=== PATIENT | female | born 1995 | race Caucasian/White ===

== ENCOUNTER 2020-12-23 15:20 | Emergency (ER) | payer BC, OTHER, SELFPAY ==
[2020-12-23 16:31] VITALS: BP 121/84; PULSE 86; RESP 18; TEMP 37.1; O2SAT 97; BMI 39.7
--- NOTE | 2020-12-23 17:12 | ED.BACK ---
HPI - Back Pain/Injury General Chief Complaint: Back Pain/Injury Stated Complaint: Back pain Time Seen by Provider: 12/23/20 16:32 Source: patient Mode of arrival: ambulatory Limitations: no limitations History of Present Illness HPI Narrative: 25 y/o female with history of sciatica who presents to the ER with worsening low back pain after she injured herself at the [employer] park yesterday afternoon. Patient reports stepping off of the wooden platform onto a trampoling when she had sudden pain in her lower back that shot up her spine and down her legs. It brought her to the ground and she could not get up immediately. She reports the pain is in her lower back, left greater than right. She has been taking tylenol with no improvement. She cannot find a comfortable position. Worse with walking and movement. No bladder or bowel incontinence. Pain shoots down the back of her legs and into her hips. No leg weakness just pain. MD elicited complaint: back pain and back injury Pertinent past history: prior back pain Onset (ago): day(s) (1) Timing: constant Severity: severe Pain scale (0-10): 7 Similar Symptoms Previously: Yes Quality: sharp, stabbing and aching Location: right lower back and left lower back Radiation: groin, left upper leg and right upper leg Exacerbating factors: movement and walking Relieving factors: immobilization and sitting upright Context: fall Associated symptoms: denies other symptoms Treatments prior to arrival: acetaminophen Work related injury: No Related Data Previous Rx's Medication Instructions Recorded cyclobenzaprine 10 mg tablet 10 mg PO TID PRN #10 tab 12/23/20 hydrocodone 5 mg-acetaminophen 325 1 tab PO Q8H PRN #5 tab 12/23/20 mg tablet ibuprofen 600 mg tablet 600 mg PO Q8H PRN #20 tab 12/23/20 lidocaine 5 % topical patch 1 patch TOPICAL DAILY #15 ea 12/23/20 (Lidoderm) Allergies Allergy/AdvReac Type Severity Reaction Status Date / Time iron Allergy Unknown Verified 12/23/20 16:30 Review of Systems Review of Systems: Constitutional: No Fever, No Chills ENT/Mouth: No sore throat, No Rhinorrhea, No Swallowing Difficulty Cardiovascular: No Chest Pain, No SOB Gastrointestinal: No Nausea, No Vomiting, No abdominal Pain Genitourinary: No urinary incontinence, No Hematuria Musculoskeletal: + joint pain, + Myalgias Skin: No Skin Lesions, No rash Neuro: No Weakness, No Numbness Heme/Lymph: No Bruising PMFSH Social History Social History Advance Directives: No Advance Directives Information Provided: Yes Patient : No Physical Exam Vital Signs: Vital Signs: Last Vital Signs Temp 98.8 F 12/23/20 16:31 Pulse 86 12/23/20 16:31 Resp 18 12/23/20 16:31 BP 121/84 12/23/20 16:31 Pulse Ox 97 12/23/20 16:31 Body Mass Index 39.7 Appearance: Alert. Oriented X3. Appears uncomfortable. Eyes: normal inspection ENT: Pharynx normal. Neck: Normal inspection. Neck supple. CVS: Normal heart rate and rhythm. Pulses normal. Respiratory: No respiratory distress. Breath sounds normal. Abdomen: Soft and nontender. +BS x4 Back: normal inspection. tenderness of the low lumar area bilaterally with soft tissue spasm, +SI joint tenderness on the left Skin: Skin warm and dry. Normal skin color. Normal skin turgor. No rashes. Extremities: No lower extremity edema. Neuro: Oriented X 3. No motor deficit. No sensory deficit. Ambulates with slow but steady gait. Course Course Course Narrative: 25 y/o female presenting with low back pain radiating into her legs after stepping wrong at a trampoline park yesterday. Exam and clinical presentation are consistent acute exacerbation of sciatica. Doubt spinal cord compression/cauda equina syndrome. No red flag symptoms of LBP. Will get XR to r/o compression fx given fall. Reevaluation(s) Reevaluation #1: Patient declining XR. She feels somewhat improved after medications. She would like to be discharged home with NSAID, muscle relaxer, lidoderm and narcotic for severe pain PRN. She will f/u with her PCP this week - she is awaiting PT to be arranged for her pre-existing low back pain. Stable for d/c with supportive care and pain control. MDM - Back Pain/Injury Lab Data Labs: Lab Results 12/23/20 12/23/20 Range/Units 17:39 17:39 Urine Color STRAW Urine Appearance CLEAR Urine pH 7.0 (5.0-8.0) Ur Specific Hext 1.010 (1.005-1.025) Urine Protein NEG (NEG-TRACE) MG/DL Urine Glucose (UA) NEG (NEG) MG/DL Urine Ketones NEG (NEG) MG/DL Urine Blood NEG (NEG) Urine Nitrite NEG (NEG) Ur Leukocyte Esterase 1+ H (NEG) Urine RBC 0 (0) /HPF Urine WBC 0-2 (0-4) /HPF Ur Squamous Epith Cells 1+ /LPF Urine Bacteria NONE /LPF Urine Test NEGATIVE (NEGATIVE) Critical Care Time Critical Care Time Critical Care Time: No Discharge Plan Discharge Clinical Impression: Sciatica Qualifiers: Laterality: bilateral Qualified Code(s): M54.31 - Sciatica, right side Strain of lumbar region Qualifiers: Encounter type: initial encounter Qualified Code(s): S39.012A - Strain of muscle, fascia and tendon of lower back, initial encounter Patient Disposition: Home, Self-Care Instructions: Sciatica (ED), Low Back Strain (ED), Lower Back Exercises (ED) Additional Instructions: No bending, lifting or twisting Use ice several times per day for 20 minutes at a time for the next 48 hours and then change to heat. Take medications as prescribed to help with pain and discomfort. Follow up with your Primary Care Doctor this week. If your pain worsens, if you develop new numbness, tingling, weakness, loss of function or incontinence call 911 or come back to the ER right away for evaluation. Prescriptions: New cyclobenzaprine 10 mg tablet 10 mg PO TID PRN (Reason: muscle spasm) Qty: 10 RF: 0 lidocaine [Lidoderm] 5 % adhesive patch,medicated 1 patch topical DAILY Qty: 15 RF: 0 ibuprofen 600 mg tablet 600 mg PO Q8H PRN (Reason: pain) Qty: 20 RF: 0 hydrocodone-acetaminophen 5-325 mg tablet 1 tab PO Q8H PRN (Reason: severe pain (scale score 7-10)) Qty: 5 RF: 0 Stand Alone Forms: Work/School Release
[2020-12-23] MEDS: Cyclobenzaprine HCl 5 MG TABLET PO (17:32)
[2020-12-23] MEDS: Ketorolac Tromethamine 15 MG/ML VIAL 30 MG IM (17:32)
[2020-12-23] MEDS: HYDROcodone Bit/Acetam 5/325 TABLET 1 TAB PO (17:32)
[2020-12-23 18:18] LABS: Appearance Urine CLEAR; Color Urine STRAW; Glucose Urine UA NEG (NEG); Leukocyte Esterase Urine 1+ (NEG); Nitrite Urine NEG (NEG); UACC Culture Trigger YES; Urine Blood NEG (NEG); Urine Ketones NEG (NEG); Urine Protein NEG (NEG-TRACE)
[2020-12-23 18:20] LABS: UPreg QC Valid YES; Urine Pregnancy NEGATIVE (NEGATIVE)
[2020-12-23 18:29] LABS: RBC Urine 0 /HPF (0); Squamous Epithelial Cell Urine 1+ /LPF; WBC Urine 0-2 /HPF (0-4)
== END 2020-12-23 19:20 | disposition home or self-care (01) ==
PROVIDERS: Physician Assistant; Emergency Provider Emergency Medicine
DX: S39.012A Strain of muscle, fascia and tendon of lower back, initial encounter (principal); M54.31 Sciatica, right side; M79.605 Pain in left leg; M79.604 Pain in right leg; Y33.XXXA Other specified events, undetermined intent, initial encounter; Y93.9 Activity, unspecified; Y93.44 Activity, trampolining; Y92.9 Unspecified place or not applicable; Z79.899 Other long term (current) drug therapy
CPT/HCPCS: 81001; 81025; 87086; 96372; 99284; J1885

== ENCOUNTER → 2022-01-03 08:02 | Outpatient (REF) | payer BC, SELFPAY ==
--- NOTE | 2022-01-03 08:08 | ECG_ITS ---
Test Reason : obesity Blood Pressure : / mmHG Vent. Rate : 074 BPM Atrial Rate : 074 BPM P-R Int : 130 ms QRS Dur : 084 ms QT Int : 392 ms P-R-T Axes : 024 019 001 degrees QTc Int : 435 ms Normal sinus rhythm Normal ECG No previous ECGs available Referred By: Jace Godwin Electronically Signed By:MITCH GOINS
[2022-01-03 08:20] LABS: MANUAL DIFF FLAG NO
[2022-01-03 08:34] LABS: Basophils Absolute Auto 0.1 X10*3/uL (0.0-0.2); Basophils Percent Auto 0.8 % (0-2); Eosinophils Absolute Auto 0.1 X10*3/uL (0.0-0.4); Eosinophils Percent Auto 1.2 % (0-4); Hematocrit 37.4 % (37.0-47.0); Hemoglobin 11.8 g/dl (12.0-16.0); Imm Gran Abs Auto 0.03 X10*3/uL (0.00-0.03); Imm Gran Pct Auto 0.4 % (0.0-0.4); Lymphocytes Absolute Auto 1.9 X10*3/uL (1.2-4.9); Lymphocytes Percent Auto 25.7 % (20-40); Mean Corpuscular HGB Conc 31.6 g/dl (31.0-35.0); Mean Corpuscular Hemoglobin 25.2 pg (27.0-33.0); Mean Corpuscular Volume 79.7 fL (80.0-98.0); Mean Platelet Volume 10.7 fL (9.4-12.3); Monocytes Absolute Auto 0.6 X10*3/uL (0.1-1.2); Monocytes Percent Auto 7.6 % (2-11); Neutrophils Absolute Auto 4.8 x10*3/uL (2.0-8.3); Neutrophils Percent Auto 64.3 % (45-73); Platelet Count 345 X10*3/uL (160-400); Red Blood Count 4.69 X10*6/uL (4.20-5.50); Red Cell Distribution Width 14.9 % (11.0-16.0); White Blood Count 7.5 X10*3/uL (4.8-10.8)
[2022-01-03 08:44] LABS: Estimated Average Glucose 103 mg/dL; Hemoglobin A1c % 5.2 %
[2022-01-03 08:57] LABS: Alanine Aminotransferase 20 U/L (0-31); Albumin Level 4.3 g/dL (3.5-5.0); Alkaline Phosphatase 102 U/L (39-117); Anion Gap 15 (12-20); Aspartate Amino Transferase 18 U/L (5-31); Bilirubin Total 0.4 mg/dL (0.0-1.0); Blood Urea Nitrogen 10 mg/dL (9-16); C Reactive Protein 0.45 mg/dL (< or = 0.50); Calcium 9.3 mg/dL (8.4-10.2); Carbon Dioxide 23 mmol/L (22-29); Chloride 105 mmol/L (96-108); Cholesterol 220 mg/dL; Estimated Glomerular Filt Rate > 60; Glucose Random 100 mg/dL (60-115); HDL Cholesterol 46 mg/dL; Iron 33 mcg/dL (30-160); LDL Cholesterol Calculated 158 mg/dl; Percent Iron Saturation 7 % (15-50); Potassium 4.4 mmol/L (3.3-5.1); Sodium 139 mmol/L (135-145); Total Iron Binding Capacity 486 mcg/dL (228-428); Total Protein 7.3 g/dL (6.5-8.0); Triglycerides 83 mg/dL; Unsaturated Iron Binding 453 ug/dL
[2022-01-03 09:20] LABS: Ferritin 5 ng/mL (10-122); Insulin 9 uU/mL (2-29); TSH reflex Free T4 3.36 uIU/mL (0.32-4.0); Vitamin D 25-OH Total 30.5 ng/mL (>30)
[2022-01-03 09:31] LABS: Folate 18.7 ng/mL (> or = 4.0); Vitamin B12 536 pg/mL (200-900)
[2022-01-05 15:00] LABS: H Pylori Breath Test Negative (Negative)
[2022-01-06 17:26] LABS: Calcium (PTHI) 9.6 mg/dL (8.6-10.2); PTHI 46 pg/mL (16-77)
[2022-01-07 05:52] LABS: Zinc 82 mcg/dL (60-130)
[2022-01-07 06:02] LABS: Vitamin B1 12 nmol/L (8-30)
[2022-01-08 10:07] LABS: Vitamin A 38 mcg/dL (38-98)
== END ==
LOC: HO.CARD 08:02
PROVIDERS: Visit Provider Surgery
DX: E66.01 Morbid (severe) obesity due to excess calories (principal); E78.5 Hyperlipidemia, unspecified
CPT/HCPCS: 36415; 80053; 80061; 82306; 82607; 82728; 82746; 83013; 83036; 83525; 83540; 83970; 84425; 84443; 84590; 84630; 85025; 86140; 93005

== ENCOUNTER → 2022-01-08 15:09 | Outpatient (BNVA) | payer BC, SELFPAY | PROVIDERS: Visit Provider Counselor Mental Health | DX: F33.1 Major depressive disorder, recurrent, moderate (principal); E66.01 Morbid (severe) obesity due to excess calories | CPT/HCPCS: 90791 ==

== ENCOUNTER → 2022-01-17 15:42 | Outpatient (BNVA) | payer BC, SELFPAY | PROVIDERS: Visit Provider Dietitian, Registered | DX: E66.01 Morbid (severe) obesity due to excess calories (principal); Z68.41 Body mass index [BMI] 40.0-44.9, adult | CPT/HCPCS: 97802 ==

== ENCOUNTER → 2022-02-10 16:16 | Outpatient (BNVA) | payer BC, SELFPAY | PROVIDERS: Visit Provider Dietitian, Registered | DX: E66.01 Morbid (severe) obesity due to excess calories (principal); E78.5 Hyperlipidemia, unspecified | CPT/HCPCS: 97803 ==

== ENCOUNTER 2022-02-20 07:49 | Outpatient (REF) | payer BC, SELFPAY ==
--- NOTE | ~2022-02-20 | FL_ITS ---
EXAMINATION: XR FLUOROSCOPY UPPER GI WITH AIR CLINICAL INFORMATION: [id number] obesity due to excess calories. COMPARISON: None TECHNIQUE: Routine upper GI air contrast was performed in upright and lying position. FINDINGS: Following oral administration of thick barium and effervescent granules there is normal propagation of bolus from the oral cavity through the pharynx, esophagus into stomach without any evidence of obstruction, narrowing or stricture. On placing patient supine and prone lying, the course, caliber and peristalsis of the stomach and duodenal bulb is normal. The mucosal pattern of the stomach and the duodenal bulb and the sweep is normal. There is mild gastroesophageal reflux without hiatal hernia. FLUOROSCOPY TIME: 1.3 minutes DOSE AREA PRODUCT: 20.748 uGy-m2 (microgray-meter squared) FL/FL upper GI w air IMPRESSION: Mild gastroesophageal reflux without hiatal hernia.
--- NOTE | ~2022-02-20 | US_ITS ---
EXAMINATION: US COMPLETE ABDOMEN WITH LIVER ELASTOGRAPHY CLINICAL INFORMATION: Obesity COMPARISON: None. TECHNIQUE: Real-time imaging of the abdominal viscera. Noninvasive ultrasound liver fibrosis assessment is performed using Gretel ElastPQ point quantification shear wave elastography (2D-SWE) with a C5-2 MHz transducer. Multiple elastography samples are obtained. FINDINGS: PANCREAS: Normal. ABDOMINAL AORTA: The proximal, middle, and distal aortic segments are normal in caliber. INFERIOR VENA CAVA: Visualized portions are normal. LIVER: Normal. The liver demonstrates normal size, contour and echogenicity. No focal lesion or intrahepatic biliary duct dilatation. The right lobe measures 16 cm in length. The left lobe measures 11 cm in length. Portal flow is normal/hepatopedal Shear wave liver elastography median stiffness is 1.4 m/s (reference: normal median stiffness is 1.3 m/s or less). IQR/median stiffness to assess sampling precision is 0.15 (reference: good quality data set is IQR/median stiffness of 0.15 or less). GALLBLADDER: Normal. The gallbladder is physiologically distended without evidence of stones, sludge, polyps, wall thickening or pericholecystic fluid. COMMON BILE DUCT: Normal in caliber measuring 0.2 cm in diameter. RIGHT KIDNEY: Normal. No hydronephrosis. No renal calculi or focal parenchymal lesions. The kidney measures 13 cm in maximum dimension. LEFT KIDNEY: Normal. No hydronephrosis. No renal calculi or focal parenchymal lesions. The kidney measures 12 cm in maximum dimension. SPLEEN: Normal. The spleen measures 12 cm in maximum dimension. FREE FLUID: None. US/US abdomen comp w elastography IMPRESSION: 1. Impression: Unremarkable exam. 2. Liver elastography: Adequate liver sampling. In the absence of other known clinical signs, rules out compensated advanced chronic liver disease. REFERENCE: Society of Radiologists in Ultrasound Liver Stiffness Thresholds (2020): LIVER STIFFNESS THRESHOLDS: *Liver Stiffness equal or less than 1.3 m/s: High probability of being normal. *Liver Stiffness less than 1.7 m/s: In the absence of other known clinical signs, rules out compensated advanced chronic liver disease. *Liver Stiffness 1.7-2.1 m/s: Suggestive of compensated advanced chronic liver disease but need further test for confirmation. *Liver Stiffness over 2.1 m/s: Rules in compensated advanced chronic liver disease. *Liver Stiffness over 2.4 m/s: Suggestive of clinically significant portal hypertension. QUALITY OF DATA SET: *IQR/Median value equal or less than 0.15 implies a quality data set. *IQR/Median value over 0.15 implies a poor quality data set. SIGNIFICANT CHANGE FROM PRIOR EXAM: Significant change if liver stiffness measurement is 10% or greater from prior exam. OTHER CONSIDERATIONS: The stage of liver fibrosis may be overestimated in the setting of acute hepatitis, liver inflammation, elevated liver function tests, hepatic vascular congestion, obstructive cholestasis, non-fasting state, and infiltrative diseases such as amyloidosis and lymphoma. In some patients with NAFLD, the liver stiffness thresholds for compensated advanced chronic liver disease may be lower. In causes other than viral hepatitis and NAFLD, liver stiffness thresholds are not well established.
== END 2022-02-20 07:50 | disposition home or self-care (01) ==
LOC: HO.US 07:49
PROVIDERS: Visit Provider Surgery
DX: E66.01 Morbid (severe) obesity due to excess calories (principal); E78.5 Hyperlipidemia, unspecified
CPT/HCPCS: 74246; 76705; 76981

== ENCOUNTER → 2022-04-21 08:21 | Outpatient (BNVA) | payer BC, SELFPAY | PROVIDERS: Visit Provider Surgery | DX: Z13.89 Encounter for screening for other disorder (principal) ==

== ENCOUNTER → 2022-04-30 08:29 | Outpatient (BNVA) | payer BC, SELFPAY | PROVIDERS: Visit Provider Surgery | DX: Z13.89 Encounter for screening for other disorder (principal) ==

== ENCOUNTER 2022-05-06 06:01 | Inpatient (IN) | payer BC, SELFPAY ==
[2022-04-23 10:28] VITALS: BMI 37.8
[2022-04-30 08:26] LABS: MANUAL DIFF FLAG NO
[2022-04-30 08:57] LABS: Basophils Absolute Auto 0.1 X10*3/uL (0.0-0.2); Basophils Percent Auto 1.1 % (0-2); Eosinophils Absolute Auto 0.1 X10*3/uL (0.0-0.4); Eosinophils Percent Auto 1.1 % (0-4); Hematocrit 41.1 % (37.0-47.0); Hemoglobin 13.1 g/dl (12.0-16.0); Imm Gran Abs Auto 0.02 X10*3/uL (0.00-0.03); Imm Gran Pct Auto 0.3 % (0.0-0.4); Lymphocytes Absolute Auto 2.1 X10*3/uL (1.2-4.9); Lymphocytes Percent Auto 27.4 % (20-40); Mean Corpuscular HGB Conc 31.9 g/dl (31.0-35.0); Mean Corpuscular Hemoglobin 25.2 pg (27.0-33.0); Mean Platelet Volume 11.3 fL (9.4-12.3); Monocytes Absolute Auto 0.5 X10*3/uL (0.1-1.2); Monocytes Percent Auto 6.7 % (2-11); Neutrophils Absolute Auto 4.8 x10*3/uL (2.0-8.3); Neutrophils Percent Auto 63.4 % (45-73); Platelet Count 319 X10*3/uL (160-400); Red Cell Distribution Width 16.8 % (11.0-16.0); White Blood Count 7.6 X10*3/uL (4.8-10.8)
[2022-04-30 09:01] LABS: Prothrombin Time 11.5 SEC (10.0-13.1)
[2022-04-30 09:03] LABS: Partial Thromboplastin Time 31.6 SEC (26.0-36.4)
[2022-04-30 09:05] LABS: Estimated Average Glucose 105 mg/dL; Hemoglobin A1c % 5.3 %
[2022-04-30 09:30] LABS: Alanine Aminotransferase 22 U/L (0-31); Albumin Level 4.6 g/dL (3.5-5.0); Alkaline Phosphatase 92 U/L (39-117); Anion Gap 11 (12-20); Aspartate Amino Transferase 21 U/L (5-31); Bilirubin Total 0.5 mg/dL (0.0-1.0); Blood Urea Nitrogen 12 mg/dL (9-16); C Reactive Protein 0.34 mg/dL (< or = 0.50); Calcium 9.7 mg/dL (8.4-10.2); Carbon Dioxide 26 mmol/L (22-29); Chloride 104 mmol/L (96-108); Cholesterol 228 mg/dL; Creatinine Clr Calc Pharmacy 131.2; Estimated Glomerular Filt Rate > 60; Glucose Random 82 mg/dL (60-115); HDL Cholesterol 49 mg/dL; LDL Cholesterol Calculated 160 mg/dl; Potassium 4.3 mmol/L (3.3-5.1); Sodium 137 mmol/L (135-145); Total Protein 7.6 g/dL (6.5-8.0); Triglycerides 99 mg/dL
[2022-04-30 09:50] LABS: Insulin 4 uU/mL (2-29)
--- NOTE | 2022-05-02 18:37 | P.HPSUR_ITS ---
Pre-Procedural Eval Section A Date of Service: 05/02/22 The patient is an INPATIENT: Yes The History & Physical has been completed within 30 days and I have reviewed it.: Yes Section B Chief Complaint: Morbid (severe) obesity due to excess calories Relevant Family History (Specify if Yes): No Relevant Social History: None Present Medications: None Medical History: No relevant PMH History of Previous Operations: No relevant previous surgery Allergies: Allergies Allergy/AdvReac Type Severity Reaction Status Date / Time iron Allergy Intermediate Hives Verified 04/23/22 10:28 Review of Systems Sugical H&P ROS: Negative: Constitution, Cardiovascular, Respiratory, Neurological, Psychiatric, Hem-Onc, Allergic/Immunologic, Gastrointestinal, Genitourinary, Musculoskeletal, Integumentary, Endocrine and Eyes/Ears /Nose/Throat Exam Surgical H&P Exam: Normal: HEENT, Normal: Heart, Normal: Lungs, Normal: Extremities, Normal: Abdomen, Normal: Skin and Normal: Neurological Plan Diagnosis/Plan: Unchanged I have reviewed the history and physical and performed a pertinent physical examination on my patient. No changes have occurred unless specified. Time Spent With Patient Time: Total time managing care of this patient today ____ minutes.
--- NOTE | 2022-05-05 10:13 | HO.ANESPROP2 ---
Documented by User: Maryellen Swann NP 05/05/22 10:14 HPI - Anesthesia Eval Consult details Narrative: 26yo F for Gastrectomy Sleeve,possible diaphragmatic hernia,possible ventral hernia,possible open PMFSH Active Problems Active Problems: All Active Problems (Updated 04/23/22 @ 10:25 by Deepa Swartz RN) History of tonsillectomy (Acute) Iron deficiency (Acute) Major depressive disorder, recurrent, moderate (Acute) Obesity (Acute) BMI 38.0-38.9,adult (Acute) Morbid obesity (Acute) Depression (Acute) Hyperlipidemia (Acute) Back pain (Acute) Past Medical History Medical History Back pain Depression GERD (gastroesophageal reflux disease) History of anxiety Hyperlipidemia Low back pain Morbid obesity Personal history of asthma Surgical History Surgical History Hx of tonsillectomy Social History Social History Household Members: Children Housing: House Are you a primary ocular care technologist to a significant other at home: Yes (children ages 4,7,11) Do you presently have visiting nurse or other home services: No Alcohol intake: never Patient Tobacco Use Status: Never used Tobacco Use of substances other than those prescribed or required for medical reasons: No Have you been hit, kicked, punched, or otherwise hurt by someone within the past year? If so, by whom?: No Are you DNR?: No Advance Directives: No Advance Directives Information Provided: Yes Advance Directives on File: No Recently lost weight without trying: No Nutrition Risks: No Nutritional Risk Patient : No FDLMP: 04/11/2022 : No Poor oral hygiene: No Meds Allergies Allergy/AdvReac Type Severity Reaction Status Date / Time iron Allergy Intermediate Hives Verified 05/06/22 06:09 Exam Exam Date and Time: May 05, 2022 1013 Height,Weight and Vital Signs: Height 5 ft Weight 87.997 kg Pertinent Lab Results Pertinent Lab Results: Laboratory Tests 04/30/22 04/30/22 04/30/22 08:20 08:24 08:24 WBC 7.6 RBC 5.20 Hgb 13.1 Hct 41.1 MCV 79.0 L MCH 25.2 L MCHC 31.9 RDW 16.8 H Plt Count 319 MPV 11.3 Immature Gran % (Auto) 0.3 Neut % (Auto) 63.4 Lymph % (Auto) 27.4 [place] % (Auto) 6.7 Eos % (Auto) 1.1 Baso % (Auto) 1.1 Lymph # (Auto) 2.1 [place] # (Auto) 0.5 Eos # (Auto) 0.1 Baso # (Auto) 0.1 Abs Immat Gran (auto) 0.02 Absolute Neuts (auto) 4.8 Absolute Nucleated RBC 0.000 Nucleated RBC % (auto) 0.0 PT 11.5 INR 1.0 APTT 31.6 Sodium Potassium Chloride Carbon Dioxide Anion Gap BUN Creatinine Estim Creat Clear Calc Estimated GFR Random Glucose Estimat Average Glucose Hemoglobin A1c % Insulin Level Calcium Total Bilirubin AST ALT Alkaline Phosphatase C-Reactive Protein Total Protein Albumin Triglycerides Cholesterol LDL Cholesterol, Calc HDL Cholesterol TSH Blood Type A Positive Antibody Screen NEGATIVE 04/30/22 04/30/22 08:24 08:24 WBC RBC Hgb Hct MCV MCH MCHC RDW Plt Count MPV Immature Gran % (Auto) Neut % (Auto) Lymph % (Auto) [place] % (Auto) Eos % (Auto) Baso % (Auto) Lymph # (Auto) [place] # (Auto) Eos # (Auto) Baso # (Auto) Abs Immat Gran (auto) Absolute Neuts (auto) Absolute Nucleated RBC Nucleated RBC % (auto) PT INR APTT Sodium 137 Potassium 4.3 Chloride 104 Carbon Dioxide 26 Anion Gap 11 L BUN 12 Creatinine 0.63 Estim Creat Clear Calc 131.2 Estimated GFR > 60 Random Glucose 82 Estimat Average Glucose 105 Hemoglobin A1c % 5.3 Insulin Level 4 Calcium 9.7 Total Bilirubin 0.5 AST 21 ALT 22 Alkaline Phosphatase 92 C-Reactive Protein 0.34 Total Protein 7.6 Albumin 4.6 Triglycerides 99 Cholesterol 228 LDL Cholesterol, Calc 160 HDL Cholesterol 49 TSH 1.90 Blood Type Antibody Screen Narrative Narrative: EKG 12/2021 Vent. Rate : 074 BPM ? ? Atrial Rate : 074 BPM ?? P-R Int : 130 ms? QRS Dur : 084 ms ? ? QT Int : 392 ms ? ? ? P-R-T Axes : 024 019 001 degrees ?? QTc Int : 435 ms ? Normal sinus rhythm Normal ECG No previous ECGs available Assessment and Plan Assessment Anesthesia Assessment: Chart Reviewed Documented by User: Bety Bowie MD 05/06/22 07:34 [facility] Past Medical History Medical History Back pain Depression GERD (gastroesophageal reflux disease) History of anxiety Hyperlipidemia Low back pain Morbid obesity Personal history of asthma Family History Family history of problems with anesthesia: No Surgical History Surgical History Hx of tonsillectomy History of Problems with Anesthesia: No Social History Social History Household Members: Children Housing: House Are you a primary ocular care technologist to a significant other at home: Yes (children ages 4,7,11) Do you presently have visiting nurse or other home services: No Alcohol intake: never Patient Tobacco Use Status: Never used Tobacco Use of substances other than those prescribed or required for medical reasons: No Have you been hit, kicked, punched, or otherwise hurt by someone within the past year? If so, by whom?: No Are you DNR?: No Advance Directives: No Advance Directives Information Provided: Yes Advance Directives on File: No Recently lost weight without trying: No Nutrition Risks: No Nutritional Risk Patient : No FDLMP: 04/11/2022 : No Poor oral hygiene: No Meds Allergies Allergy/AdvReac Type Severity Reaction Status Date / Time iron Allergy Intermediate Hives Verified 05/06/22 06:09 Exam Height,Weight and Vital Signs: Height 5 ft Weight 87.997 kg Vital Signs Temp Pulse Resp BP Pulse Ox O2 Del Method 05/06/22 06:21 98.0 F 84 15 119/69 99 Room Air Pertinent Lab Results Pertinent Lab Results: Laboratory Tests 04/30/22 04/30/22 04/30/22 08:20 08:24 08:24 WBC 7.6 RBC 5.20 Hgb 13.1 Hct 41.1 MCV 79.0 L MCH 25.2 L MCHC 31.9 RDW 16.8 H Plt Count 319 MPV 11.3 Immature Gran % (Auto) 0.3 Neut % (Auto) 63.4 Lymph % (Auto) 27.4 [place] % (Auto) 6.7 Eos % (Auto) 1.1 Baso % (Auto) 1.1 Lymph # (Auto) 2.1 [place] # (Auto) 0.5 Eos # (Auto) 0.1 Baso # (Auto) 0.1 Abs Immat Gran (auto) 0.02 Absolute Neuts (auto) 4.8 Absolute Nucleated RBC 0.000 Nucleated RBC % (auto) 0.0 PT 11.5 INR 1.0 APTT 31.6 Sodium Potassium Chloride Carbon Dioxide Anion Gap BUN Creatinine Estim Creat Clear Calc Estimated GFR Random Glucose Estimat Average Glucose Hemoglobin A1c % Insulin Level Calcium Total Bilirubin AST ALT Alkaline Phosphatase C-Reactive Protein Total Protein Albumin Triglycerides Cholesterol LDL Cholesterol, Calc HDL Cholesterol TSH Blood Type A Positive Antibody Screen NEGATIVE 04/30/22 04/30/22 08:24 08:24 WBC RBC Hgb Hct MCV MCH MCHC RDW Plt Count MPV Immature Gran % (Auto) Neut % (Auto) Lymph % (Auto) [place] % (Auto) Eos % (Auto) Baso % (Auto) Lymph # (Auto) [place] # (Auto) Eos # (Auto) Baso # (Auto) Abs Immat Gran (auto) Absolute Neuts (auto) Absolute Nucleated RBC Nucleated RBC % (auto) PT INR APTT Sodium 137 Potassium 4.3 Chloride 104 Carbon Dioxide 26 Anion Gap 11 L BUN 12 Creatinine 0.63 Estim Creat Clear Calc 131.2 Estimated GFR > 60 Random Glucose 82 Estimat Average Glucose 105 Hemoglobin A1c % 5.3 Insulin Level 4 Calcium 9.7 Total Bilirubin 0.5 AST 21 ALT 22 Alkaline Phosphatase 92 C-Reactive Protein 0.34 Total Protein 7.6 Albumin 4.6 Triglycerides 99 Cholesterol 228 LDL Cholesterol, Calc 160 HDL Cholesterol 49 TSH 1.90 Blood Type Antibody Screen Laboratory Results - last 24 hr 05/05/22 05/06/22 12:50 06:10 Urine Test NEGATIVE COVID-19 (RIYA) Negative COVID-19 Clin Com See Note Airway Mallampati Class: II TM Dist: >3cm Neck ROM: Full Loose/Missing/Broken Teeth: No (Denies broken, loose, missing teeth) Heart: RRR Lungs: CTAB Assessment and Plan Assessment Anesthesia Assessment: Anesthesia Plan Discussed Final Anesthetic Review Family History of Problems with Anesthesia: No History of Problems with Anesthesia: No NPO: Yes ASA Class: III Final Preanesthetic Review: No Changes in Pt Med Stat, Meds/Allgs Chart Reviewed, Consent Obtained/Reviewed and Anes Risks/Benef Reviewed Patient Risk: Intermediate Procedure Risk: Intermediate Assessment/Block/Sedation in SS: Assess/Block/Sedation-SS Anesthetic Plan Anesthetic Plan: GA Disposition: Standard PACU and Inp. Admit - Standard Bed
[2022-05-05 13:18] LABS: COVID-19 Test Negative (Negative); IDNOW Serial# BCCEAD1C
[2022-05-06] VITALS (12 sets, daily range): BP systolic 105–152; BP diastolic 64–89; PULSE 77–98; RESP 15–20; TEMP 36.3–37; O2SAT 97–100
--- NOTE | 2022-05-06 | ECG_ITS ---
Test Reason : post op Blood Pressure : / mmHG Vent. Rate : 098 BPM Atrial Rate : 098 BPM P-R Int : 136 ms QRS Dur : 090 ms QT Int : 366 ms P-R-T Axes : 043 009 162 degrees QTc Int : 467 ms Artifact in tracing Normal sinus rhythm Nonspecific ST and T wave abnormality Abnormal ECG When compared with ECG of 03-JAN-2022 08:04, T wave inversion now evident in Anterolateral leads Referred By: Bety Bowie Electronically Signed By:YAHIR LUNA
[2022-05-06] MEDS: Lactated Ringers 1,000 ML 999 ML IV (06:30)
[2022-05-06 06:34] LABS: UPreg QC Valid YES; Urine Pregnancy NEGATIVE (NEGATIVE)
--- NOTE | 2022-05-06 07:56 | P.BOP_ITS ---
Brief Operative Note Date of Service: 05/06/22 Pre-op diagnosis: Severe obesity with comorbidities (see below) Post-op diagnosis: same Procedure: INITIAL PATIENT BMI ON PRESENTATION AT OUR OFFICE: 42.5 kg/m2 LAST BMI BEFORE SURGERY: 36.8 kg/m2 COMORBIDITIES: Depression, hyperlipidemia, GERD, back pain ?The patient presented to the Weight Management Program with significant obesity that was negatively impacting the patient's comorbidities as listed above.? The program is a phased program with a special focus on preoperative medical weight management to promote substantial weight loss and prepare the patients for the second phase of the program: bariatric surgery. The patient participated in an intensive weekly lifestyle ?intervention and exercise program during which the patient ?has lost between the initial office visit and the last preoperative visit 28.8lbs, or 13.25% of initial actual body weight. It was deemed appropriate for the patient to now have bariatric surgery. In light of the current Covid-19 pandemic and the well documented strong association of obesity and increased risk of worse outcomes if infected with Covid-19 (REFERENCES: https://pubmed.ncbi.nlm.nih.gov/08138590/ ,? http s://pubmed.ncbi.nlm.nih.gov/23233162/ ), any delay in undergoing bariatric surgery may lead to the patient's worsening health condition and increased?risk of more severe Covid-19 disease if infected. In addition a recent?study from [facility] published in [facility] on 04/08/2021 ([email or web address]) found that, among patients with obesity, substantial weight loss achieved with surgery was associated with improved outcomes of COVID-19 infection. The findings suggest that obesity can be a modifiable risk factor for the severity of COVID-19 infection. In addition, the patient met the BMI-criteria for bariatric surgery based on the BMI on initial presentation. The patient should not be penalized for achieving such weight loss because ?it is not sustainable long-term without surgical intervention and it was achieved in preparation for bariatric surgery ?under my direction and based on my published research ([email or web address]).[email or web address] and? https://www.soard.org/article/F6114-3575(63)54590-X/pdf ) ?that a 10% preoperative weight loss improves long-term weight loss after surgery and reduces perioperative complications.? Insurance carriers such as [facility] have endorsed my recommendations ?and have included in their policies criteria to include a 10% preoperative weight loss requirement. PROCEDURE: Esophago-gastroscopy, laparoscopic sleeve gastrectomy and laparoscopic gastropexy INDICATIONS: This is a 26 year-old female who was electively scheduled for laparoscopic, possibly open sleeve gastrectomy. The risks and complications of the procedure were discussed with the patient in advance, particularly the possibility of ; pulmonary embolism; staple line leak; bleeding; GERD; cardiac, pulmonary, or renal complications; as well as long-term problems such as insufficient weight loss, vitamin deficiency, strictures, or ulcers. The p atient understood all the risks, and was in agreement to proceed with surgery. DESCRIPTION OF PROCEDURE: After informed consent was obtained from the patient, the patient was given preoperative antibiotics, and was transferred to the operating room. After successful induction of general anesthesia, pneumatic compression devices were placed on both lower extremities. An upper endoscopy was performed next. The oropharynx and esophagus appeared to be within normal limits. There was no diaphragmatic hernia present consistent with the findings of the preoperative upper GI. The stomach was entered. Then after all fluid and air were suctioned and the stomach was fully decompressed, the scope was withdrawn and secured in the mid esophagus. The patient was then prepped and draped in the usual sterile manner, and abdominal access was established at the right upper quadrant with the Lucien technique. A 12 mm blunt port was inserted, and the abdomen was insufflated with CO2 to a pressure of 15 mmHg. Under direct visualization, additional ports were placed, specifically two 5 mm Versi-step ports to the left upper quadrant, and a 5 mm Versi-Step port to the right upper quadrant. 1% lidocaine plain was used to infiltrate all port sites as well as all fascia defects. Following that, the patient was placed in a steep reverse Trendelenburg position. An additional 5 mm port was placed to the right flank for the Mediflex retractor that was used to retract the left lobe of the liver. The gastro-esophageal fat pad was opened with the ultrasonic device (Thunderbeat, Olympus) and the anterior esophagus and hiatus were exposed. The angle of His was opened with the ultrasonic device the fundus of the stomach from any diaphragmatic and splenic attachments. I then opened the gastrocolic ligament between the transverse colon and the greater curvature of the stomach with the ultrasonic device to enter the lesser sac and facilitate the ligation of the short gastric vessels. I started at a mid-point along the greater curvature and using the Thunderbeat, all short gastric vessels were divided all the way to the angle of His until the left jordana was completely dissected at its entirety. I then divided the gastro-colic ligament distally to a distance of about 3-4 cm proximal to the pylorus. The stomach was then divided transversely with one Endo GABRIELE-45 purple and three GABRIELE-60 articulating orange loads using the AEON stapler and loads. Every effort was made that the gastric sleeve had a tubular shape and an even caliber throughout. Once the sleeve resection was completed, the staple line of the gastric sleeve was reinforced with Hemoclips. The resected stomach was retrieved without difficulty from the Lucien port. A gastropexy was then performed in order to prevent postoperative GERD and partial gastric volvulus. Several interrupted 2.0 Surgidac sutures were placed between the sleeve's staple line and the previously divided greater omentum and gastro-colic ligament using the Endo-Stitch device. ?An upper endoscopy was performed. There was no narrowing at the GE junction. The scope was easily advanced all the way to the pylorus which was clearly visualized. There was no narrowing anywhere and the sleeve's caliber was even throughout. The sleeve's staple line was inspected and there was no evidence of ischemia, bleeding or dehiscence. At that point the gastroscope was withdrawn from the patient?s mouth while we were decompressing the bowel and the stomach from any remaining air. I looked into the lesser sac to see how the sleeve was situating and it was situating well. There was no bleeding from the staple line, spleen, or short gastric vessels. The Mediflex retractor was removed, and the undersurface of the liver was inspected and there was no bleeding. The patient was placed in supine position. I closed the fascial defect of the 12 mm port site with a figure of eight #1 Polysorb suture. Then 30cc Ropivacaine plain with 10 mg of Dexamethasone were used to infiltrate the fascial closure as well as all skin incisions. A total of 7ml of Zynrelef was applied in the Lucien wound. At this point, the abdomen was deflated, all ports were removed under direct vision, and no bleeding was noted from any of the port sites. The skin incisions were irrigated with saline and were closed with 4-0 absorbable monofilament sutures. Steri-Strips and OpSites were used to cover all incisions. The patient was extubated and was transferred in stable condition to the recovery room for further care. I was present and performed all gerardo parts of the procedure. Ms. Valentino was the certified first assistant. There were no residents to assist with this case. Jose Godwin MD, PhD, FACS Surgeon: Jace Godwin MD Anesthesia: GETA, local and other (TAP block and 7ml Zynrelef) Was an Gear Grinding Machine Operator used for this Procedure?: No Gear Grinding Machine Operator: Mihaela Valentino Estimated blood loss (mL): 10 IV fluids (mL): 2,000 Urine output (mL): 0 (No Campbell to record) Pathology: other (Stomach) Condition: stable Disposition: PACU
--- NOTE | 2022-05-06 07:58 | PM.PNGS ---
Subjective Subjective Date of Service: 05/07/22 Interval history: Patient has mild incisional pain, but was able to ambulate and use the incentive spirometer. She is tolerating phase 1 bariatric diet Physical Exam Vital Signs: Vital Signs: Last Vital Signs Temp 98.0 F 05/06/22 06:21 Pulse 84 05/06/22 06:21 Resp 15 05/06/22 06:21 BP 119/69 05/06/22 06:21 Pulse Ox 99 05/06/22 06:21 O2 Del Method 05/06/22 06:21 BMI result Body Mass Index 37.8 GI: Inspection: Yes normal to inspection, Yes incision (clean, dry and intact) and Yes obesity Palpation (GI): Soft to palpation Extrem: Right lower extremity: normal to inspection (no calf tenderness) Left lower extremity: normal to inspection (no calf tenderness) Objective Data Active Medications Albuterol Sulfate (Albuterol Sulfate (0.083%) 2.5 Mg/3 Ml Vial.Neb) 2.5 mg INHALE ONCE PRN PRN Reason: Shortness of Breath/Wheezing Lactated Ringer's (Lr) 1,000 mls @ 100 mls/hr IVCONT .Q10H COURTNEY Lactated Ringer's (Lr) 1,000 mls @ 999 mls/hr IV .Q1H1M COURTNEY Stop: 05/06/22 08:15 Last Admin: 05/06/22 06:30 Dose: 999 mls/hr Documented By: OPAL Labs 04/30/22 08:24 04/30/22 08:24 Labs: Laboratory Results - last 24 hr 05/05/22 05/06/22 12:50 06:10 Urine Test NEGATIVE COVID-19 (RIYA) Negative COVID-19 Clin Com See Note Procedures Date of Service Date of Service: 05/07/22 Progress Note: A&P Assessment and plan (1) Obesity: Status: Acute Assessment and Plan: s/p laparoscopic sleeve gastrectomy and gastropexy Doing well Check am labs. If OK, will discharge home? (2) BMI 36.0-36.9,adult: Status: Acute (3) Hyperlipidemia: Status: Acute (4) Depression: Status: Acute (5) Back pain: Status: Acute (6) GERD (gastroesophageal reflux disease): Status: Acute (7) S/P laparoscopic sleeve gastrectomy: Status: Acute Time Spent With Patient Time: Total time managing care of this patient today ____ minutes. Quality Stroke Does the patient have a stroke diagnosis?: No VTE Prior VTE?: No VTE Risk Level:: Surgical - moderate VTE Device Contraindication: N/A - Device Ordered VTE Drug Contraindication: Treatment Not Indicated
--- NOTE | 2022-05-06 10:12 | P.DS_ITS ---
DS: Providers Provider Date of Service: 05/07/22 Date of admission: 05/06/22 06:01 Primary care physician: Unknown Physician DS: Diagnosis Discharge Diagnosis (1) Obesity: Status: Acute (2) BMI 36.0-36.9,adult: Status: Acute (3) Hyperlipidemia: Status: Acute (4) Depression: Status: Acute (5) Back pain: Status: Acute (6) GERD (gastroesophageal reflux disease): Status: Acute DS: Summary Hospital Course Hospital Course: ADMITTING DIAGNOSIS: morbid obesity, hyperlipidemia DISCHARGE DIAGNOSIS: same, s/p laparoscopic sleeve gastrectomy PAST SURGICAL HISTORY: none PROCEDURE: upper endoscopy, laparoscopic sleeve gastrectomy DISCHARGE SUMMARY: History of Present Illness: The patient is a 26 year-old woman with a BMI of 42.4 kg/m2 and associated co- morbidities as described above. The patient had extensive work-up, lost 22.6 lbs preoperatively and was electively scheduled for laparoscopic, possible open sleeve gastrectomy and gastropexy. Risks and complications of the surgery were discussed with the patient in advance, particularly the possibility of , pulmonary embolism, anastomotic leak, bleeding, bowel injury, GERD, cardiac, renal or pulmonary complications. The patient understood all the risks and was in agreement with the surgical plan. Hospital Course: The patient underwent an uneventful laparoscopic sleeve gastrectomy with gastropexy on the day of admission. Postoperatively, the patient was transferred to the surgical floor. The patient received IV Acetaminophen and IV dilaudid for pain control. Patient was started on bariatric phase 1 diet POD #0. On postoperative day one, the patient was feeling well without nausea, vomiting, fevers, or tachycardia. The patient had some mild incisional pain and the abdomen was soft. On the morning of postoperative day one, the patient was continued on 1 ounce of water or ice every half hour. During the day, the patient did fairly well, having some incisional pain, but able to ambulate adequately and to tolerate liquids well. Since the patient is doing well, we decided that the patient was ready to be discharged. The patient was given instructions to follow-up with me next week and to call my office for any fever over 101, persistent abdominal pain, nausea, vomiting, GERD, symptoms of DVT such as calf tenderness, or leg swelling, or pulmonary embolism such as chest pain or shortness of breath. The patient was also instructed to drink 40-60 ounces of liquids per day using the 1-ounce cups. The patient had been given prescriptions for Tylenol for pain, Zofran prn for nausea, and pantoprazole and carafate previously. The patient was encouraged to ambulate and use the incentive spirometer. The patient was allowed to shower, but no baths, and encouraged to stay active at home. All of these instructions were given to the patient personally. All questions were answered and the patient understood all instructions, the instructions were also given to the patient in print. Time Spent with Patient Time attestation: Total time managing care of this patient today ____ minutes. Discharge coordination time: Less than 30 minutes Quality: Safe Use of Opioids Does Pt have an Active Cancer Diagnosis on the Problem List?: No Quality: Stroke Does the patient have a stroke diagnosis?: No Physical Exam Vital Signs: Vital Signs: Last Vital Signs Temp 98.0 F 05/06/22 06:21 Pulse 84 05/06/22 06:21 Resp 15 05/06/22 06:21 BP 119/69 05/06/22 06:21 Pulse Ox 99 05/06/22 06:21 O2 Del Method 05/06/22 06:21 BMI result Body Mass Index 37.8 DS: Data Data Completed and Pending Pending studies at discharge: Pending at discharge 05/06/22 09:14 Surgical [PTH] Routine Labs on day of discharge: Laboratory Results - last 24 hr 05/05/22 05/06/22 12:50 06:10 Urine Test NEGATIVE COVID-19 (RIYA) Negative COVID-19 Clin Com See Note Discharge Plan Discharge Anticipated Discharge Date/Time: 05/07/22 10:09 Patient Disposition: Home, Self-Care Discharge Diagnosis: s/p sleeve gastrectomy Referrals: Physician,Unknown J [Primary Care Provider] - 1 Week Discharge Medications: Continued pantoprazole 40 mg tablet,delayed release (DR/EC) 40 mg PO DAILY Qty: 30 2RF sucralfate 100 mg/mL suspension 10 ml PO BID Qty: 400 2RF ondansetron HCl 4 mg tablet 4 mg PO Q12H Qty: 20 0RF Rx Instructions: take only if you have any nausea every 6 hours as needed Discontinued Vitron-C 65 mg iron- 125 mg tablet,delayed release (DR/EC) 1 tab PO DAILY Qty: 30 2RF Rx Instructions: swallow whole; do not chew/break/dissolve/open Discharge Orders: Discharge Order (Routine); Ordered 05/07/22 Ordered By: Jace Godwin Activity on Discharge: No heavy lifting Stand Alone Forms: Patient Portal Discharge page Care Plan Goals: weight loss Health Concerns: obesity Plan of Treatment: No tub baths, sex or returning to work until discussed at first post op appointment. No exercise, alcohol, tobacco or illegal drug use. Continue to use incentive spirometer hourly while awake. Walk in home for 5- 10 minutes every 2 hours during the first week. Continue phase 1 diet today and start phase 2 diet tomorrow morning. Follow all instructions in the bariatric handbook and call with any questions. 1. Please call your doctor or come back to the emergency room should any new symptoms arise. 2. You will receive a courtesy call from [facility] 24-48 hours after discharge. 3. Activity: abstain from alcohol, practice limited stair climbing, no bending, no driving, no exercise, no illicit substances, no lifting, no sex, no tub bath, no work. 4. Diet: continue as discussed with bariatric team.. 5. Dressing Change/Wound Care: Do not change or remove surgical dressings unless they are wet or soiled. 6. Call your doctor if: - Your temperature exceeds 101.5 F - You experience excessive pain or swelling - You have an unexpected reaction to medication - You have excessive bleeding - You experience continued vomiting/nausea - Your incision begins to separate - Your incision shows signs of infection such as increased redness, swelling, excessive pain, heat, or drainage (light blood or clear fluid is normal) 7. General instructions: No lifting greater than 5 lbs for the next 4 weeks[address] within 24 hours of taking narcotic pain medications. If you do not move your bowels in the next 2 days, please take milk of magnesia over the counter. Please follow the post op diet and do not advance your diet until you are seen in the office in about 2 weeks. Please walk around your home every hour or two to prevent blood clots from forming in your legs. You do not need to wake from sleeping to walk. Please sleep in a bed or couch to prevent kinking at the hips and knees. Please take your incentive spirometer (your lung credit review officer) home with you and use it for the next few days to prevent pneumonias. You may shower, no hot tubs, baths or swimming pools. Please call the office with any questions or concerns such as increasing abdominal pain, fever, chills, shortness of breath, chest pain, leg pain or swelling, or redness or drainage from your incisions. Do not hesitate to contact the office with any questions at . The patient's medical history has been reviewed and they are considered low risk for post op DVT and therefore DVT prophylaxis is not considered necessary. Travel after surgery was reviewed. The patient has not disclosed any travel plans during the first 30 days after surgery and they have been advised that within the first 30 days after surgery any bus, plane, train or car travel over 2 hours in duration is contraindicated due to the possibility of developing blood clots from immobility. Any travel, needs to include periods of ambulation of 10 minutes in duration every 2 hours. The patient was instructed to discuss any plans for travel during this period with their bariatric surgeon. Assessment: s/p sleeve gastrectomy
[2022-05-06 10:44] LABS: Hematocrit 37.1 % (37.0-47.0); Hemoglobin 11.9 g/dl (12.0-16.0)
[2022-05-06] MEDS: Famotidine/PF 20 MG/2 ML VIAL IVPUSH ×2 (10:58→19:15)
[2022-05-06 11:03] LABS: Anion Gap 15 (12-20); Blood Urea Nitrogen 6 mg/dL (9-16); Carbon Dioxide 22 mmol/L (22-29); Chloride 105 mmol/L (96-108); Creatinine Clr Calc Pharmacy 110.2; Estimated Glomerular Filt Rate > 60; Glucose Random 122 mg/dL (60-115); Potassium 3.9 mmol/L (3.3-5.1); Sodium 138 mmol/L (135-145)
[2022-05-06] MEDS: Metoclopramide HCl 10 MG/2 ML VIAL IVPUSH (11:03)
[2022-05-06] MEDS: Lactated Ringers 1,000 ML 100 ML IVCONT ×2 (11:05→19:15)
[2022-05-06 11:29] LABS: Troponin-I High Sensitivity < 3.5 ng/L (<3.5-17.0)
--- NOTE | 2022-05-06 11:48 | PHA.MEDREC ---
Pharmacy Consult ? Medication Reconciliation Pharmacy has completed the medication reconciliation.
[2022-05-06] MEDS: ceFAZolin Sodium/Dextrose,Iso 2 GM/50 ML PIGGYBACK IV (13:24)
[2022-05-06] MEDS: Acetaminophen 1,000 MG/100 ML PIGGYBACK 16.7 MG IV ×2 (14:05→19:14)
[2022-05-06] MEDS: ondansetron HCL 4 MG/2 ML VIAL IVPUSH (19:15)
[2022-05-06] MEDS: 0.9 % Sodium Chloride Flush 3 ML SYRINGE IVFLUSH (19:16)
[2022-05-07] MEDS: Acetaminophen 1,000 MG/100 ML PIGGYBACK 16.7 MG IV ×2 (00:43→06:06)
[2022-05-07] MEDS: ondansetron HCL 4 MG/2 ML VIAL IVPUSH (03:24)
[2022-05-07 03:25] VITALS: BP 117/65; PULSE 80; RESP 18; TEMP 36.9; O2SAT 98
[2022-05-07] MEDS: Lactated Ringers 1,000 ML 100 ML IVCONT (03:26)
[2022-05-07 06:49] LABS: MANUAL DIFF FLAG NO
[2022-05-07 06:52] LABS: Basophils Percent Auto 0.3 % (0-2); Hematocrit 34.4 % (37.0-47.0); Hemoglobin 11.2 g/dl (12.0-16.0); Imm Gran Abs Auto 0.05 X10*3/uL (0.00-0.03); Imm Gran Pct Auto 0.4 % (0.0-0.4); Lymphocytes Percent Auto 15.9 % (20-40); Mean Corpuscular HGB Conc 32.6 g/dl (31.0-35.0); Mean Corpuscular Hemoglobin 25.9 pg (27.0-33.0); Mean Corpuscular Volume 79.6 fL (80.0-98.0); Mean Platelet Volume 11.7 fL (9.4-12.3); Monocytes Absolute Auto 0.9 X10*3/uL (0.1-1.2); Monocytes Percent Auto 7.1 % (2-11); Neutrophils Absolute Auto 9.5 x10*3/uL (2.0-8.3); Neutrophils Percent Auto 76.3 % (45-73); Platelet Count 310 X10*3/uL (160-400); Red Blood Count 4.32 X10*6/uL (4.20-5.50); Red Cell Distribution Width 16.8 % (11.0-16.0); White Blood Count 12.5 X10*3/uL (4.8-10.8)
--- NOTE | 2022-05-07 06:53 | HO.POSTANES ---
Post Anesthesia Evaluation Post Anesthesia Evaluation Vital Signs: Vital Signs Temp Pulse Resp BP Pulse Ox O2 Del Method 05/07/22 03:25 98.4 F 80 18 117/65 98 Room Air 05/06/22 19:39 98.6 F 77 18 132/78 97 Room Air Anesthesia: General Endotracheal-GETA Mental Status: Awake Pain Control: Satisfactory Nausea/Vomiting: None Hydration: Adequate Anesthesia-Related Issues: No Anes. Related Issues
[2022-05-07] MEDS: Famotidine/PF 20 MG/2 ML VIAL IVPUSH (06:59)
[2022-05-07 07:05] VITALS: BP 127/76; PULSE 70; RESP 18; TEMP 36.6; O2SAT 100
[2022-05-07 07:08] LABS: Anion Gap 15 (12-20); Blood Urea Nitrogen 4 mg/dL (9-16); Calcium 8.6 mg/dL (8.4-10.2); Carbon Dioxide 20 mmol/L (22-29); Chloride 107 mmol/L (96-108); Creatinine Clr Calc Pharmacy 137.7; Estimated Glomerular Filt Rate > 60; Glucose Random 79 mg/dL (60-115); Potassium 4.2 mmol/L (3.3-5.1); Sodium 138 mmol/L (135-145)
--- NOTE | 2022-05-07 09:00 | MHC.CM.PN ---
Addendum entered by Bharti Forman, RN 05/07/22 09:20: PCP - DOCTOR YASMANY NOLEN (VERIFIED WITH [facility]) Original Note: PATIENT IS FULLY INDEPENDENT NO DME OR VNA SERVICES SHE DOES NOT HAVE A HCP AND DOES NOT HAVE ANYONE IN MIND TO ASSIGN ONE. SHE IS AWARE THAT IF SHE DOES DECIDE, CASE MANAGEMENT CAN ASSIST WITH COMPLETION. PLAN IS HOME TODAY - SELF CARE RN AWARE OF PLAN
== END 2022-05-07 09:32 | disposition home or self-care (01) | DRG 403 ==
LOC: HO.SSSA 10:12 → HO.S3 11:21
PROVIDERS: Anesthesiology; Nurse Practitioner; Physician Assistant; Physician Assistant Surgical; Admitting Provider Surgery; PCP Internal Medicine; Visit Provider Surgery
PROC: 0DB64Z3 Excision of Stomach, Percutaneous Endoscopic Approach, Vertical (ICD-10-PCS; CPT 43845; principal; 2022-05-06 07:30)
DX: E66.01 Morbid (severe) obesity due to excess calories (principal); F32.A Depression, unspecified; Z68.36 Body mass index [BMI] 36.0-36.9, adult; K21.9 Gastro-esophageal reflux disease without esophagitis; E78.5 Hyperlipidemia, unspecified; M54.50 Low back pain, unspecified; Z20.822 Contact with and (suspected) exposure to COVID-19; Z79.899 Other long term (current) drug therapy
CPT/HCPCS: 36415; 80048; 80053; 80061; 81025; 83036; 83525; 84443; 84484; 85014; 85018; 85025; 85610; 85730; 86140; 86850; 86900; 86901; 87635; 88307; 88342; 93005; A4649; C9088; J0131; J0690; J1100; J1170; J2250; J2405; J2550; J2765; J2795; J3010

== ENCOUNTER → 2022-05-13 10:35 | Outpatient (BNVA) | payer BC, SELFPAY | PROVIDERS: Visit Provider Physician Assistant Surgical | DX: Z13.89 Encounter for screening for other disorder (principal) ==

== ENCOUNTER → 2022-05-27 12:58 | Outpatient (BNVA) | payer BC, SELFPAY | PROVIDERS: Visit Provider Dietitian, Registered | DX: E66.9 Obesity, unspecified (principal); Z68.34 Body mass index [BMI] 34.0-34.9, adult | CPT/HCPCS: 97803 ==

== ENCOUNTER → 2022-06-11 10:57 | Outpatient (BNVA) | payer BC, SELFPAY | PROVIDERS: Visit Provider Dietitian, Registered | DX: E66.9 Obesity, unspecified (principal) | CPT/HCPCS: 97803 ==

== ENCOUNTER → 2022-07-15 13:42 | Outpatient (BNVA) | payer BC, SELFPAY | PROVIDERS: Visit Provider Dietitian, Registered | DX: Z98.84 Bariatric surgery status (principal); E66.9 Obesity, unspecified; Z71.3 Dietary counseling and surveillance | CPT/HCPCS: 97803 ==

== ENCOUNTER → 2022-08-04 14:44 | Outpatient (BNVA) | payer BC, SELFPAY | PROVIDERS: Visit Provider Dietitian, Registered | DX: E66.9 Obesity, unspecified (principal); Z68.31 Body mass index [BMI] 31.0-31.9, adult; Z71.3 Dietary counseling and surveillance | CPT/HCPCS: 97803 ==

== ENCOUNTER → 2022-09-22 13:55 | Outpatient (BNVA) | payer BC, SELFPAY | PROVIDERS: Visit Provider Dietitian, Registered | DX: E66.01 Morbid (severe) obesity due to excess calories (principal); Z71.3 Dietary counseling and surveillance; Z68.30 Body mass index [BMI] 30.0-30.9, adult | CPT/HCPCS: 97803 ==

== ENCOUNTER → 2022-10-03 08:39 | Outpatient (BNVA) | payer BC, SELFPAY | PROVIDERS: Visit Provider Dietitian, Registered | DX: E66.9 Obesity, unspecified (principal); Z98.84 Bariatric surgery status; Z71.3 Dietary counseling and surveillance | CPT/HCPCS: 97803 ==

== ENCOUNTER → 2023-01-05 10:18 | Outpatient (BNVA) | payer BC, SELFPAY | PROVIDERS: Visit Provider Dietitian, Registered | DX: O99.840 Bariatric surgery status complicating pregnancy, unspecified trimester (principal); Z3A.00 Weeks of gestation of pregnancy not specified; Z71.3 Dietary counseling and surveillance | CPT/HCPCS: 97803 ==

== ENCOUNTER 2023-02-06 09:29 | Outpatient (AMB) | payer BC, SELFPAY ==
--- NOTE | 2023-02-06 09:31 | MHC.OFFVISWM ---
Intake VS Expanded 02/06/23 09:41 BP 112/56 L Blood Pressure Location Rt brachial Blood Pressure Position Sitting Pulse 82 Pulse Source Pulse Oximeter Temp 97.0 F Temperature Source Tympanic Pulse Oximetry 99 Oxygen Delivery Method Room Air Height 5 ft Weight 149 lb BMI 29.1 Body Fat % 30.7 Body Fat Mass 45.6 Fat Free Mass 103.2 Visceral Fat Rating 4.0 Body Water % 49.8 Body Water Mass 74.0 Muscle Mass/Score 97.8 Basal Metabolic Rate/Score 1,426 Intake Visit Reasons: (OV) PO LSG 05/06/22 Allergies iron Allergy (Intermediate, Verified 02/06/23 09:35) Hives HPI HPI Comments History of Present Illness Details Pt is 9 months s/p LSG, 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 Pt states she had a miscarraige last week at 8 weeks gestation. Pt prefers to be using 4:1 shakes. Meal lplan now - 2 4:1 shakes with 1% Fairlife and 1 meal per day mostly chicken1-2 oz of protien and vegetable. If needs a snack a has a mozz cheese stick. Doesn't like fruit, BM's every few days, sometimes hard to pass. Exercise - normally 3-4 at gym - treadmill for 45 minutes, not sure of caloreis burned, manual program of speed 3.0, incline 13. Did not start ST yet. Patient has not had any post op labs. Post op complications: none NANCY: never DM: never HTN: never Hyperlipidemia: off meds GERD: 0, Satisfaction with present condition - satisfied REPLACED BY [facility] Medical History (Updated 02/06/23 @ 10:08 by Mihaela Valentino PA-C) BMI 36.0-36.9,adult GERD (gastroesophageal reflux disease) Low back pain History of anxiety Personal history of asthma Back pain Hyperlipidemia Depression Morbid obesity Surgical History Hx of laparoscopic partial gastrectomy Hx of tonsillectomy Social History Household Members: Children Housing: House Are you a primary child care specialist to a significant other at home: Yes (children ages 4,7,11) Do you presently have visiting nurse or other home services: No Alcohol intake: never Patient Tobacco Use Status: Never used Tobacco service: No Current occupational status: employed Physical Exam Const General: cooperative, comfortable and no acute distress GI Inspection: Yes incision (all well healed) Palpation (GI): Soft to palpation, nontender, no guarding, no hernias and no masses Assessment & Plan Assessment & Plan (1) S/P laparoscopic sleeve gastrectomy: Code(s): Z98.84 - Bariatric surgery status Plan: Pt is doing well at 9 months post op. Has experienced recent SAB, will discuss new contraceptive method with her gym provider next week, I have enouraged her to use a reliable form of contraception now that she is ovulating regularly. Meal plan 2 --4;1 Shakes per day, she finds them easy to use, forgets vitamins of oten 1 meal per day of 2 oz protien and 2 oz vegetable Will restart fiber gummies bid for more fiber in diet. Exercise- 2,000 brad /week - 4 d cardio on treadmill - >[address] - 3d/ week - UE - 3 machines - 15 lbs 3sets of 15 ABd - 15 lbs - 3 sets of 15 LE - 30 lbs - 3 machines 3 sets of 15 Labs ordered today. Next appt with Yadi in 2 months, in 4 months for 1 year post op. I spent 30 minutes in total with patient reviewing/updating records, examining the patient and counseling the patient on weight management as detailed above. (2) Overweight: Code(s): E66.3 - Overweight Orders: Orders Insulin Today E66.9 - Obesity, unspecified, Z98.84 - Bariatric surgery status IRON PROFILE Today E66.9 - Obesity, unspecified, Z98.84 - Bariatric surgery status Complete Blood Count Auto Diff Today E66.9 - Obesity, unspecified, Z98.84 - Bariatric surgery status Zinc Today E66.9 - Obesity, unspecified, Z98.84 - Bariatric surgery status Comprehensive Met. Panel Today E66.9 - Obesity, unspecified, Z98.84 - Bariatric surgery status Vitamin B1 Today E66.9 - Obesity, unspecified, Z98.84 - Bariatric surgery status C Reactive Protein Today E66.9 - Obesity, unspecified, Z98.84 - Bariatric surgery status PTHI Today E66.9 - Obesity, unspecified, Z98.84 - Bariatric surgery status TSH reflex Free T4 Today E66.9 - Obesity, unspecified, Z98.84 - Bariatric surgery status Hemoglobin A1c Today E66.9 - Obesity, unspecified, Z98.84 - Bariatric surgery status Lipid Panel Today E66.9 - Obesity, unspecified, Z98.84 - Bariatric surgery status Vitamin B12 and Folate Today E66.9 - Obesity, unspecified, Z98.84 - Bariatric surgery status Vitamin A Today E66.9 - Obesity, unspecified, Z98.84 - Bariatric surgery status Ferritin Today E66.9 - Obesity, unspecified, Z98.84 - Bariatric surgery status Vitamin D 25-OH Total Today E66.9 - Obesity, unspecified, Z98.84 - Bariatric surgery status Referrals Behavioral Health Referral E66.9 - Obesity, unspecified, Z98.84 - Bariatric surgery status Nutrition/Dietitian Referral E66.9 - Obesity, unspecified, Z98.84 - Bariatric surgery status Coding Level of Care Code Est Pt Level 4 (84184) Diagnoses S/P laparoscopic sleeve gastrectomy Z98.84 Overweight E66.3
[2023-02-06 09:41] VITALS: BP 112/56; PULSE 82; TEMP 36.1; O2SAT 99; BMI 29.1
== END 2023-02-06 10:11 | disposition home or self-care (01) ==
PROVIDERS: Visit Provider Physician Assistant
DX: E66.3 Overweight (principal); Z68.29 Body mass index [BMI] 29.0-29.9, adult; Z90.3 Acquired absence of stomach [part of]; Z98.84 Bariatric surgery status
CPT/HCPCS: 99214

== ENCOUNTER → 2023-02-06 09:29 | Outpatient (BNVA) | payer BC, SELFPAY | PROVIDERS: Visit Provider Physician Assistant ==

== ENCOUNTER 2023-04-02 08:39 | Outpatient (REF) | payer BC, OTHER, SELFPAY ==
[2023-04-02 09:01] LABS: MANUAL DIFF FLAG NO
[2023-04-02 09:21] LABS: Basophils Absolute Auto 0.1 X10*3/uL (0.0-0.2); Basophils Percent Auto 0.9 % (0-2); Eosinophils Absolute Auto 0.1 X10*3/uL (0.0-0.4); Eosinophils Percent Auto 0.8 % (0-4); Hematocrit 36.7 % (37.0-47.0); Imm Gran Abs Auto 0.02 X10*3/uL (0.00-0.03); Imm Gran Pct Auto 0.3 % (0.0-0.4); Lymphocytes Absolute Auto 1.5 X10*3/uL (1.2-4.9); Lymphocytes Percent Auto 23.4 % (20-40); Mean Corpuscular HGB Conc 32.7 g/dl (31.0-35.0); Mean Corpuscular Hemoglobin 28.2 pg (27.0-33.0); Mean Corpuscular Volume 86.4 fL (80.0-98.0); Mean Platelet Volume 10.8 fL (9.4-12.3); Monocytes Absolute Auto 0.5 X10*3/uL (0.1-1.2); Monocytes Percent Auto 7.4 % (2-11); Neutrophils Absolute Auto 4.3 x10*3/uL (2.0-8.3); Neutrophils Percent Auto 67.2 % (45-73); Platelet Count 305 X10*3/uL (160-400); Red Blood Count 4.25 X10*6/uL (4.20-5.50); Red Cell Distribution Width 14.5 % (11.0-16.0); White Blood Count 6.4 X10*3/uL (4.8-10.8)
[2023-04-02 09:28] LABS: Estimated Average Glucose 103 mg/dL; Hemoglobin A1c % 5.2 % (<6.0)
[2023-04-02 09:58] LABS: Alanine Aminotransferase 10 U/L (0-31); Alkaline Phosphatase 53 U/L (39-117); Anion Gap 11 (12-20); Aspartate Amino Transferase 13 U/L (5-31); Bilirubin Total 0.6 mg/dL (0.0-1.0); Blood Urea Nitrogen 10 mg/dL (9-16); C Reactive Protein < 0.04 mg/dL (< or = 0.50); Calcium 9.1 mg/dL (8.4-10.2); Carbon Dioxide 24 mmol/L (22-29); Chloride 108 mmol/L (96-108); Cholesterol 157 mg/dL (<200); Estimated Glomerular Filt Rate > 60; Glucose Random 91 mg/dL (60-115); HDL Cholesterol 52 mg/dL (>40); Iron 74 mcg/dL (30-160); LDL Cholesterol Calculated 93 mg/dL (<100); Percent Iron Saturation 20 % (15-50); Sodium 139 mmol/L (135-145); Total Iron Binding Capacity 375 mcg/dL (228-428); Total Protein 6.8 g/dL (6.5-8.0); Triglycerides 62 mg/dL (<150); Unsaturated Iron Binding 301 ug/dL
[2023-04-02 10:19] LABS: Ferritin 7 ng/mL (10-122); Insulin 3 uU/mL (2-29); TSH reflex Free T4 1.91 uIU/mL (0.32-4.0); Vitamin D 25-OH Total 32.4 ng/mL (>30)
[2023-04-02 10:21] LABS: Vitamin B12 913 pg/mL (200-900)
[2023-04-06 15:08] LABS: Vitamin B1 6 nmol/L (8-30)
[2023-04-08 03:22] LABS: Zinc 63 mcg/dL (60-130)
[2023-04-09 00:38] LABS: Vitamin A 36 mcg/dL (38-98)
== END 2023-04-02 08:40 | disposition home or self-care (01) ==
LOC: HO.LAB 08:39
PROVIDERS: Visit Provider Physician Assistant
DX: E66.9 Obesity, unspecified (principal); Z98.84 Bariatric surgery status
CPT/HCPCS: 36415; 80053; 80061; 82306; 82607; 82728; 82746; 83036; 83525; 83540; 84425; 84443; 84590; 84630; 85025; 86140

== ENCOUNTER 2023-05-27 09:26 | Outpatient (AMB) | payer BC, SELFPAY ==
--- NOTE | 2023-05-27 09:29 | A.OFFVIS_ITS ---
Intake VS Expanded 05/27/23 09:36 BP 138/68 Blood Pressure Location Rt brachial Blood Pressure Position Sitting Pulse 88 Pulse Source Pulse Oximeter Temp 96.9 F Temperature Source Tympanic Pulse Oximetry 100 Oxygen Delivery Method Room Air Height 5 ft Weight 140 lb BMI 27.3 Body Fat % 30.1 Body Fat Mass 42.2 Fat Free Mass 97.8 Visceral Fat Rating 4.0 Body Water % 50.2 Body Water Mass 70.4 Muscle Mass/Score 92.8 Basal Metabolic Rate/Score 1,358 Intake Visit Reasons: (OV) PO LSG 05/06/22 Allergies iron Allergy (Intermediate, Verified 05/27/23 09:37) Hives Medication List - Last Reconciled 05/27/23 by Mihaela Valentino PA-C vitamin A palmitate 3,000 mcg PO DAILY 3 weeks HPI HPI Comments History of Present Illness Details 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 Goal is to reach healthy weight about 15 lbs more. Allergy to iron supplements - full body rash, and doesn't like iron rich foods typically. Meal plan - stopped tolerating protein powders - nasuea and emesis. 60 grams per day needed. Wakes at 5:30 am 6:30 am --Isopure 20 gram shakes 7pm - 5-6 forks each protein and vegetab le Exercise - 3d /wk - 20 minutes cardio, 20 minutes weights, 10 minutes stretch and 10 minutes. Post op complications: none NANCY: never DM: never HTN: never Hyperlipidemia: resolved GERD: 0 Satisfaction with present condition - satisfied [facility] Medical History (Updated 04/09/23 @ 11:42 by Mihaela Valentino PA-C) BMI 36.0-36.9,adult GERD (gastroesophageal reflux disease) Low back pain History of anxiety Personal history of asthma Back pain Hyperlipidemia Depression Morbid obesity Surgical History Hx of laparoscopic partial gastrectomy Hx of tonsillectomy Social History Household Members: Children Housing: House Are you a primary home care attendant to a significant other at home: Yes (children ages 4,7,11) Do you presently have visiting nurse or other home services: No Alcohol intake: never Patient Tobacco Use Status: Never used Tobacco service: No Current occupational status: employed Physical Exam Vital Signs: Last Vital Signs Temp 96.9 F 05/27/23 09:36 Pulse 88 05/27/23 09:36 BP 138/68 05/27/23 09:36 Pulse Ox 100 05/27/23 09:36 Oxygen Delivery Method Room Air 05/27/23 09:36 BMI result Body Mass Index 27.3 GI Inspection: Yes incision (all completely healed) and Yes striae (and lots of loose skin) Palpation (GI): Soft to palpation, nontender, no hernias and no masses Assessment & Plan Assessment & Plan (1) Overweight: Code(s): E66.3 - Overweight Plan: Patient has been very successful over the past year. She now needs to increase her protien intake and focus on higher iron foods - will have appt with Yadi to help her with that. Goal is to loose antoher 15 lbs. Meal plan: 60 gram per day 9am - Isopure 2pm - Isopure 7pm- 3 oz and 3oz Exercise - increase to 2,000 brad per week over 3- 4 days. Will hve post op labs in October 2023 Next PA appt in 3 months I spent 30 minutes in total with patient reviewing/updating records, examining the patient and counseling the patient on weight management as detailed above. (2) S/P laparoscopic sleeve gastrectomy: Code(s): Z98.84 - Bariatric surgery status Plan see above Orders: Orders Insulin 10/12/23 E66.3 - Overweight, Z98.84 - Bariatric surgery status Lipid Panel 10/12/23 E66.3 - Overweight, Z98.84 - Bariatric surgery status IRON PROFILE 10/12/23 E66.3 - Overweight, Z98.84 - Bariatric surgery status Vitamin B12 and Folate 10/12/23 E66.3 - Overweight, Z98.84 - Bariatric surgery status Vitamin A 10/12/23 E66.3 - Overweight, Z98.84 - Bariatric surgery status Ferritin 10/12/23 E66.3 - Overweight, Z98.84 - Bariatric surgery status PTHI 10/12/23 E66.3 - Overweight, Z98.84 - Bariatric surgery status Hemoglobin A1c 10/12/23 E66.3 - Overweight, Z98.84 - Bariatric surgery status Complete Blood Count Auto Diff 10/12/23 E66.3 - Overweight, Z98.84 - Bariatric surgery status Zinc 10/12/23 E66.3 - Overweight, Z98.84 - Bariatric surgery status Comprehensive Met. Panel 10/12/23 E66.3 - Overweight, Z98.84 - Bariatric surgery status Vitamin B1 10/12/23 E66.3 - Overweight, Z98.84 - Bariatric surgery status C Reactive Protein 10/12/23 E66.3 - Overweight, Z98.84 - Bariatric surgery status TSH reflex Free T4 10/12/23 E66.3 - Overweight, Z98.84 - Bariatric surgery stat us Vitamin D 25-OH Total 10/12/23 E66.3 - Overweight, Z98.84 - Bariatric surgery status Coding Level of Care Code Est Pt Level 4 (55548) Diagnoses Overweight E66.3 S/P laparoscopic sleeve gastrectomy Z98.84
[2023-05-27 09:36] VITALS: BP 138/68; PULSE 88; TEMP 36.1; O2SAT 100; BMI 27.3
== END 2023-05-27 10:08 | disposition home or self-care (01) ==
PROVIDERS: Visit Provider Physician Assistant
DX: E66.3 Overweight (principal); Z68.27 Body mass index [BMI] 27.0-27.9, adult; Z90.3 Acquired absence of stomach [part of]; Z98.84 Bariatric surgery status
CPT/HCPCS: 99214

== ENCOUNTER → 2023-05-27 09:26 | Outpatient (BNVA) | payer BC, SELFPAY | PROVIDERS: Visit Provider Physician Assistant | DX: E66.9 Obesity, unspecified (principal); Z98.84 Bariatric surgery status ==

== ENCOUNTER 2023-06-11 11:41 | Outpatient (AMB) | payer BC, SELFPAY ==
--- NOTE | 2023-06-11 11:32 | A.OFFVIS_ITS ---
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 Reason for consult elevated BMI Diet Assmnt Details Taking procare which has 60mg iron. she has been taking it with her [employer] shake see Mihaela KELLEY's last note. Hydration: adequate , water Exercise: 30 minutes cardio walking on treadmill with incline, 3- 4x per week Hasn't started weight training Diagnosis Nutrition problem #1 overweight/obesity As related to (etiology) #1 excess energy intake and physical inactivity As evidenced by (sign/symptom) #1 high BMI Monitoring/Goals Nutrition problem monitoring total energy intake, level of knowledge/skill, total PRO intake, total CHO intake, weight and oral fluids Outcome progress progressing Learning/Education Readiness to learn excellent Stages of change action Most Recent Diabetes Results: Cholesterol 157 mg/dL (<200) 04/02/23 HDL Cholesterol 52 mg/dL (>40) 04/02/23 Triglycerides 62 mg/dL (<150) 04/02/23 Creatinine 0.67 mg/dL (0.5-1.4) 04/02/23 Blood Urea Nitrogen 10 mg/dL (9-16) 04/02/23 Sodium 139 mmol/L (135-145) 04/02/23 Potassium 4.0 mmol/L (3.3-5.1) 04/02/23 Chloride 108 mmol/L (96-108) 04/02/23 Carbon Dioxide 24 mmol/L (22-29) 04/02/23 Calcium 9.1 mg/dL (8.4-10.2) 04/02/23 AST 13 U/L (5-31) 04/02/23 ALT 10 U/L (0-31) 04/02/23 Total Protein 6.8 g/dL (6.5-8.0) 04/02/23 Albumin 4.0 g/dL (3.5-5.0) 04/02/23 [facility] Medical History (Updated 04/09/23 @ 11:42 by LESTER MilliganC) BMI 36.0-36.9,adult GERD (gastroesophageal reflux disease) Low back pain History of anxiety Personal history of asthma Back pain Hyperlipidemia Depression Morbid obesity Surgical History Hx of laparoscopic partial gastrectomy Hx of tonsillectomy Social History Household Members: Children Housing: House Are you a primary home care and home health aides teacher to a significant other at home: Yes (children ages 4,7,11) Do you presently have visiting nurse or other home services: No Alcohol intake: never Patient Tobacco Use Status: Never used Tobacco service: No Current occupational status: employed Assessment & Plan Assessment & Plan (1) Overweight: Code(s): E66.3 - Overweight (2) S/P laparoscopic sleeve gastrectomy: Code(s): Z98.84 - Bariatric surgery status Plan avoid taking iron and high calcium foods/drink together. Continue with Procare, doesn't bother her and contains 60mg iron. rec plant protine powders such as Ora which has 30% DV iron. Telehealth Telehealth Location of provider rendering services: practice address Location of patient: address on file Patient Identification confirmed using: Name, : Yes Telehealth method: video Patient verbally consented to treatment: Yes Patient verbally consented to billing insurance company: Yes Patient informed of any privacy concerns related to visit: Yes Minutes spent on Phone/Video with Pt.: 20 Coding Level of Care Code Nutr Indiv Subseq (15178) Diagnoses Overweight E66.3 S/P laparoscopic sleeve gastrectomy Z98.84 Time Spent (min) 20
== END 2023-06-11 11:46 | disposition home or self-care (01) ==
LOC: HO.HBS 11:43
PROVIDERS: Visit Provider Dietitian, Registered
DX: E66.3 Overweight (principal); Z98.84 Bariatric surgery status

== ENCOUNTER → 2023-06-11 11:41 | Outpatient (BNVA) | payer BC, SELFPAY | PROVIDERS: Visit Provider Dietitian, Registered | DX: E66.3 Overweight (principal); Z98.84 Bariatric surgery status; Z71.3 Dietary counseling and surveillance | CPT/HCPCS: 97803 ==

== ENCOUNTER 2023-08-03 11:08 | Outpatient (AMB) | payer MEDICAID, SELFPAY ==
--- NOTE | 2023-08-03 11:06 | MHC.OFFVISWM ---
VS Expanded 08/03/23 11:10 Height 5 ft Weight 140 lb BMI 27.3 Intake Visit Reasons: (telephone) PO LSG 05/06/22 Allergies iron Allergy (Intermediate, Verified 05/27/23 09:37) Hives Medication List - Last Reconciled 08/03/23 by WARREN Esposito vitamin A palmitate 3,000 mcg PO DAILY 3 weeks HPI Comments Details: This?is a?27?yo female who is s/p LSG 05/06/2022. Presents for 15 month post op visit. Weight at last visit on 06/11/2023 was 140 pounds, weight today is same.? No complaints of nausea, emesis, abdominal pain or reflux, or constipation. Recently lost her job and insurance. Present meal plan includes: 60 gram per day 9am - Isopure 2pm - Isopure 7pm- 3 oz and 3oz Procare vitamin Exercise routine includes: 30 minutes cardio walking on treadmill with incline, 3-4x per week plans to be active outside more in nice weather [facility] Medical History (Updated 04/09/23 @ 11:42 by LESTER MilliganC) BMI 36.0-36.9,adult GERD (gastroesophageal reflux disease) Low back pain History of anxiety Personal history of asthma Back pain Hyperlipidemia Depression Morbid obesity Surgical History Hx of laparoscopic partial gastrectomy Hx of tonsillectomy Social History Household Members: Children Housing: House Are you a primary associate director career services to a significant other at home: Yes (children ages 4,7,11) Do you presently have visiting nurse or other home services: No Alcohol intake: never Patient Tobacco Use Status: Never used Tobacco service: No Current occupational status: employed Telehealth Telehealth Telehealth Platform: Telephone Location of provider rendering services: other Location of patient: address on file Patient Identification confirmed using: Name, : Yes Telehealth method: voice only Patient verbally consented to treatment: Yes Patient verbally consented to billing insurance company: Yes Patient informed of any privacy concerns related to visit: Yes Minutes spent on Phone/Video with Pt.: 12 Assessment & Plan Assessment & Plan (1) Overweight: Code(s): E66.3 - Overweight Category: Medical (2) S/P laparoscopic sleeve gastrectomy: Code(s): Z98.84 - Bariatric surgery status Category: Surgical Plan Pt will continue same meal plan as it works well for her. She plans to increase exercise to help facilitate additional weight loss. Labs already ordered and pt to have drawn in October prior to 18mo appt. Texted pt with my contact info and encouraged her to reach out between appts with any questions. RTC 3 months. Patient is overweight and is not considered stable at this time. I spent a total of 30 minutes reviewing/updating records, examining the patient and counseling the patient on weight management as detailed above.
[2023-08-03 11:10] VITALS: BMI 27.3
== END 2023-08-03 11:32 | disposition home or self-care (01) ==
LOC: HO.HBS 11:08
PROVIDERS: Visit Provider Physician Assistant Surgical
DX: E66.3 Overweight (principal); Z68.27 Body mass index [BMI] 27.0-27.9, adult; Z90.3 Acquired absence of stomach [part of]; Z98.84 Bariatric surgery status
CPT/HCPCS: 99442

== ENCOUNTER → 2023-08-03 11:08 | Outpatient (BNVA) | payer BC, SELFPAY | PROVIDERS: Visit Provider Physician Assistant Surgical ==

== ENCOUNTER 2023-10-29 09:04 | Outpatient (REF) | payer MEDICAID, SELFPAY ==
[2023-10-29 09:27] LABS: MANUAL DIFF FLAG NO
[2023-10-29 09:37] LABS: Basophils Absolute Auto 0.1 X10*3/uL (0.0-0.2); Basophils Percent Auto 0.8 % (0-2); Eosinophils Absolute Auto 0.1 X10*3/uL (0.0-0.4); Eosinophils Percent Auto 0.8 % (0-4); Hematocrit 37.9 % (37.0-47.0); Hemoglobin 12.6 g/dl (12.0-16.0); Imm Gran Abs Auto 0.02 X10*3/uL (0.00-0.03); Imm Gran Pct Auto 0.3 % (0.0-0.4); Lymphocytes Absolute Auto 1.5 X10*3/uL (1.2-4.9); Lymphocytes Percent Auto 24.8 % (20-40); Mean Corpuscular HGB Conc 33.2 g/dl (31.0-35.0); Mean Corpuscular Hemoglobin 28.7 pg (27.0-33.0); Mean Corpuscular Volume 86.3 fL (80.0-98.0); Mean Platelet Volume 10.9 fL (9.4-12.3); Monocytes Absolute Auto 0.3 X10*3/uL (0.1-1.2); Monocytes Percent Auto 5.4 % (2-11); Neutrophils Absolute Auto 4.1 x10*3/uL (2.0-8.3); Neutrophils Percent Auto 67.9 % (45-73); Platelet Count 299 X10*3/uL (160-400); Red Blood Count 4.39 X10*6/uL (4.20-5.50); Red Cell Distribution Width 14.1 % (11.0-16.0); White Blood Count 6.1 X10*3/uL (4.8-10.8)
[2023-10-29 09:48] LABS: Estimated Average Glucose 100 mg/dL; Hemoglobin A1c % 5.1 % (<6.0)
[2023-10-29 10:35] LABS: Alanine Aminotransferase 14 U/L (0-31); Albumin Level 4.2 g/dL (3.5-5.0); Alkaline Phosphatase 52 U/L (39-117); Anion Gap 12 (12-20); Aspartate Amino Transferase 12 U/L (5-31); Bilirubin Total 0.4 mg/dL (0.0-1.0); Blood Urea Nitrogen 7 mg/dL (9-16); C Reactive Protein < 0.10 mg/dL (< or = 0.50); Calcium 9.5 mg/dL (8.4-10.2); Carbon Dioxide 23 mmol/L (22-29); Chloride 108 mmol/L (96-108); Cholesterol 177 mg/dL (<200); Estimated Glomerular Filt Rate > 60; Ferritin 9 ng/mL (10-122); Glucose Random 92 mg/dL (60-115); HDL Cholesterol 49 mg/dL (>40); Iron 60 mcg/dL (30-160); LDL Cholesterol Calculated 113 mg/dL (<100); Percent Iron Saturation 16 % (15-50); Potassium 4.2 mmol/L (3.3-5.1); Sodium 139 mmol/L (135-145); TSH reflex Free T4 1.25 uIU/mL (0.32-4.0); Total Iron Binding Capacity 367 mcg/dL (228-428); Total Protein 6.9 g/dL (6.5-8.0); Triglycerides 77 mg/dL (<150); Unsaturated Iron Binding 307 ug/dL
[2023-10-29 11:22] LABS: Folate 11.3 ng/mL (> or = 4.0); Insulin 4 uU/mL (2-29); Vitamin B12 1527 pg/mL (200-900)
[2023-11-03 00:53] LABS: Vitamin B1 14 nmol/L (8-30)
[2023-11-03 01:38] LABS: Zinc 62 mcg/dL (60-130)
[2023-11-03 18:19] LABS: Vitamin A 47 mcg/dL (38-98)
== END 2023-10-29 09:05 | disposition home or self-care (01) ==
LOC: HO.LAB 09:04
PROVIDERS: PCP Internal Medicine; Visit Provider Physician Assistant
DX: E66.3 Overweight (principal); Z98.84 Bariatric surgery status
CPT/HCPCS: 36415; 80053; 80061; 82306; 82607; 82728; 82746; 83036; 83525; 83540; 83970; 84425; 84443; 84590; 84630; 85025; 86140

== ENCOUNTER 2024-02-09 13:58 | Outpatient (AMB) | payer OTHER, SELFPAY ==
--- NOTE | 2024-02-09 13:36 | MHC.OFFVISWM ---
VS Expanded 02/09/24 13:37 Height 5 ft Weight 144 lb BMI 28.1 Intake Visit Reasons: (TV) PO LSG 05/06/22 Allergies iron Allergy (Intermediate, Verified 05/27/23 09:37) Hives Medication List - Last Reconciled 02/09/24 by WARREN Esposito vitamin A palmitate 3,000 mcg PO DAILY 3 weeks HPI Comments Details: This?is a?28?yo female who is s/p LSG 05/06/2022. Presents for 21 month post op visit. Weight at last visit on 08/03/2023 was 140 pounds with a BMI of 27.3, weight today is 144 pounds, representing a 4 pound weight gain with a BMI today of 28.3.?Had been down to 132lbs, felt comfortable there. No complaints of nausea, emesis, abdominal pain or reflux, or constipation. Pt had a , miscarried at 13 weeks. Was started on an antidepressant which made her more hungry. Working with her PCP to change her med. She was regularly eating larger portion sizes for the last few weeks. Present meal plan includes: 60 gram per day 9am - CorePower 42g 2pm - CorePower 42g 7pm- 3oz and 3oz Procare vitamin Exercise routine includes: 30 minutes cardio walking on treadmill with incline when she can 20K steps per day [facility] Medical History (Updated 04/09/23 @ 11:42 by Mihaela Valentino PA-C) BMI 36.0-36.9,adult GERD (gastroesophageal reflux disease) Low back pain History of anxiety Personal history of asthma Back pain Hyperlipidemia Depression Morbid obesity Surgical History Hx of laparoscopic partial gastrectomy Hx of tonsillectomy Social History Household Members: Children Housing: House Are you a primary anesthesiologist and critical care to a significant other at home: Yes (children ages 4,7,11) Do you presently have visiting nurse or other home services: No Alcohol intake: never Patient Tobacco Use Status: Never used Tobacco service: No Current occupational status: employed Telehealth Telehealth Telehealth Platform: Telephone Location of provider rendering services: other Location of patient: address on file Patient Identification confirmed using: Name, : Yes Telehealth method: voice only Patient verbally consented to treatment: Yes Patient verbally consented to billing insurance company: Yes Patient informed of any privacy concerns related to visit: Yes Minutes spent on Phone/Video with Pt.: 16 Assessment & Plan Assessment & Plan (1) Overweight: Code(s): E66.3 - Overweight Category: Medical (2) S/P laparoscopic sleeve gastrectomy: Code(s): Z98.84 - Bariatric surgery status Category: Surgical Plan Exchange 42g shakes for 26g Corepower shakes, pt likely getting too much protein for current needs. She is fearful of stretching her sleeve, we discussed keeping portion sizes to 8oz total. Vitamin levels from summer reviewed. RTC 3 months for 2 year visit. I spent a total of 30 minutes reviewing/updating records, examining the patient and counseling the patient on weight management as detailed above.
[2024-02-09 13:37] VITALS: BMI 28.1
== END 2024-02-09 13:58 | disposition home or self-care (01) ==
LOC: HO.HBS 13:58
PROVIDERS: PCP Internal Medicine; Visit Provider Physician Assistant Surgical
DX: E66.3 Overweight (principal); Z68.28 Body mass index [BMI] 28.0-28.9, adult; Z90.3 Acquired absence of stomach [part of]; Z98.84 Bariatric surgery status
CPT/HCPCS: 99214; G2211

== ENCOUNTER → 2024-02-09 13:58 | Outpatient (BNVA) | payer OTHER, SELFPAY | PROVIDERS: PCP Internal Medicine; Visit Provider Physician Assistant Surgical | DX: E66.3 Overweight (principal); Z98.84 Bariatric surgery status ==

== ENCOUNTER 2024-05-09 13:10 | Outpatient (AMB) | payer OTHER, SELFPAY ==
--- NOTE | 2024-05-09 13:13 | MHC.OFFVISWM ---
VS Expanded 05/09/24 13:22 BP 110/68 Blood Pressure Location Rt brachial Blood Pressure Position Sitting Pulse 76 Pulse Source Pulse Oximeter Temp 97.5 F Temperature Source Temporal Artery Scan Pulse Oximetry 99 Oxygen Delivery Method Room Air Height 5 ft Weight 144 lb 12.8 oz BMI 28.3 Body Fat % 33.2 Body Fat Mass 48.0 Fat Free Mass 96.6 Visceral Fat Rating 5.0 Body Water % 48.0 Body Water Mass 69.4 Muscle Mass/Score 91.8 Basal Metabolic Rate/Score 1,350 Intake Visit Reasons: OV PO LSG 05/06/22 (2y visit) Allergies iron Allergy (Intermediate, Verified 05/09/24 13:18) Hives Medication List - Last Reconciled 05/09/24 by WARREN Esposito No Known Home Meds HPI Comments Details: This?is a?28?yo female who is s/p LSG 05/06/2022. Presents for 2 year post op visit. Weight at last visit on 02/09/2024 was 144 pounds with a BMI of 28.3, weight today is same.? No complaints of nausea, emesis, abdominal pain or reflux, or constipation. Pt reports being 11 weeks . Currently taking progesterone supp for duration of , per OB; also bariatric . Present meal plan includes: 60 gram per day 9am - CorePower 26g 2pm - CorePower 26g 7pm- 3oz and 3oz BariatricPal vitamin 26g shakes suggested at last visit, changed from 42g Exercise routine includes: 30 minutes cardio walking on treadmill with incline when she can 20K steps per day prior to PFSH Medical History (Updated 04/09/23 @ 11:42 by LESTER MilliganC) BMI 36.0-36.9,adult GERD (gastroesophageal reflux disease) Low back pain History of anxiety Personal history of asthma Back pain Hyperlipidemia Depression Morbid obesity Surgical History Hx of laparoscopic partial gastrectomy Hx of tonsillectomy Social History Household Members: Children Housing: House Are you a primary respiratory care instructor to a significant other at home: Yes (children ages 4,7,11) Do you presently have visiting nurse or other home services: No Alcohol intake: never Patient Tobacco Use Status: Never used Tobacco service: No Current occupational status: employed Physical Exam Vital Signs: Last Vital Signs Temp 97.5 F 05/09/24 13:22 Pulse 76 05/09/24 13:22 BP 110/68 05/09/24 13:22 Pulse Ox 99 05/09/24 13:22 Oxygen Delivery Method Room Air 05/09/24 13:22 BMI result Body Mass Index 28.3 Assessment & Plan Assessment & Plan (1) Overweight: Code(s): E66.3 - Overweight Category: Medical (2) S/P laparoscopic sleeve gastrectomy: Code(s): Z98.84 - Bariatric surgery status Category: Surgical Plan Gave pt handout, healthy foods handout, goal 65g protein/day. Weight has remained stable so far through first trimester. She can focus on whole foods to get protein intake, can add shakes as needed or into smoothies if she can tolerate. Labs ordered. RTC 3 months. I spent a total of 30 minutes reviewing/updating records, examining the patient and counseling the patient on weight management as detailed above. Orders: Orders Vitamin B12 and Folate Today Z98.84 - Bariatric surgery status Zinc Today Z98.84 - Bariatric surgery status C Reactive Protein Today Z98.84 - Bariatric surgery status Vitamin A Today Z98.84 - Bariatric surgery status Insulin Today Z98.84 - Bariatric surgery status Hemoglobin A1c Today Z98.84 - Bariatric surgery status Complete Blood Count Auto Diff Today Z98.84 - Bariatric surgery status Lipid Panel Today Z98.84 - Bariatric surgery status IRON PROFILE Today Z98.84 - Bariatric surgery status Comprehensive Met. Panel Today Z98.84 - Bariatric surgery status Vitamin B1 Today Z98.84 - Bariatric surgery status TSH reflex Free T4 Today Z98.84 - Bariatric surgery status Ferritin Today Z98.84 - Bariatric surgery status Vitamin D 25-OH Total Today Z98.84 - Bariatric surgery status
[2024-05-09 13:22] VITALS: BP 110/68; PULSE 76; TEMP 36.4; O2SAT 99; BMI 28.3
--- OUTSIDE RECORDS SUMMARY | 2024-05-09 17:46 | XMS_ITS | Encounter Summary ---
Author Organization [facility] Address [address] [place] [address] Care Team Providers Care Retail Furniture Sales Name Role Phone Ynes Doyle MD Primary Care Provider UnavailAdilene Weber Primary Care Provider Jeremi Garsia MD Primary Care Provider Ynes Mckeon MD Primary Care Provider Unavaila jhonathan Asencio Ch MD Primary Care Provider +1 [phone] Reason for Visit * Reason Comments E-prescribe Rx Request Encounter Details Date Type Department Care Team Description 08/05/2013 Refill OBGYN - [place] [address] Sabino Berry MD E-prescribe Rx Request Social History Tobacco Use Types Packs/Day Years Used Date Smoking Tobacco: Never Smokeless Tobacco: Never Alcohol Use Standard Drinks/Week Comments No 0 (1 standard drink = 0.6 oz pur e alcohol) Sex Assigned at Date Recorded Not on file Job Start Date Occupation Industry Not on file Not on file Not on file documented as of this encounter Miscellaneous Notes * Telephone Encounter - Keke Castro - 08/05/2013 2:32 PM EDT WHEN WAS THE PATIENTS LAST ANNUAL TELECOMMUNICATIONS ADMINISTRATOR EXAM? [id number] Does patient have an upcoming appointment? No Pt saw dr berry last week for a sick visit but no showed her annual appt (THE MEDICATION REQUESTED IS ON THE MED LIST ABOVE) Did you check the Pharmacy information above?: YES Indicate how soon the patient needs the script: BY THE END OF THE DAY Patient would like script to be: E-PRESCRIBED/FAXED TO PHARMACY Is the doctor here today?: NO Can the message wait until the doctor returns?: NO Has the patient been told that the prescription will not be filled until the end of the day? YES Payor: [place]/PPO POS Plan: [email or web address] ELECT $0 Product Type: PPO [id number]-Gwrlepa documented in this encounter Plan of Treatment Not on file documented as of this encounter Visit Diagnoses Not on filedocumented in this encounter Care Teams Retail Furniture Sales Relationship Specialty Start Date End Date Ynes Doyle MD PCP - General Internal Medicine 05/19/13 05/28/17 Adilene Cheatham PCP - General Internal Medicine 05/29/17 01/27/18 Jeremi Ace MD PCP - General Internal Medicine 01/28/18 08/22/18 Ynes Doyle MD PCP - General Internal Medicine 08/23/18 11/14/20 Shirlene Asencio, [address] [place] [id number] PCP - General Internal Medicine 11/15/20 documented as of this encounter
--- OUTSIDE RECORDS SUMMARY | 2024-05-09 17:46 | XMS_ITS | Encounter Summary ---
Author Organization [facility] Address [address] [place] [address] Care Team Providers Care Cissp Name Role Phone Ynes Doyle MD Primary Care Provider Adilene Kenny Primary Care Provider Jeremi Garsia MD Primary Care Provider Ynes Mckeon MD Primary Care Provider Unavailkahlif Asencio Ch MD Primary Care Provider +1 [phone] Encounter Details Date Type Department Care Team Description 09/15/2014 Night Triage Doc Medical Records [address] [place] [address] Abstract, Provider Social History Tobacco Use Types Packs/Day Years Used Date Smoking Tobacco: Never Smokeless Tobacco: Never Alcohol Use Standard Drinks/Week Comments No 0 (1 standard drink = 0.6 oz pur e alcohol) Sex Assigned at Date Recorded Not on file Job Start Date Occupation Industry Not on file Not on file Not on file documented as of this encounter Plan of Treatment Not on file documented as of this encounter Visit Diagnoses Not on filedocumented in this encounter Care Teams Cissp Relationship Specialty Start Date End Date Ynes Doyle MD PCP - General Internal Medicine 05/19/13 05/28/17 Adilene Cheatham PCP - General Internal Medicine 05/29/17 01/27/18 Jeremi Ace MD PCP - General Internal Medicine 01/28/18 08/22/18 Ynes Doyle MD PCP - General Internal Medicine 08/23/18 11/14/20 Shirlene Asencio, [address] [place] [address] [id number] PCP - General Internal Medicine 11/15/20 documented as of this encounter
--- OUTSIDE RECORDS SUMMARY | 2024-05-09 17:46 | XMS_ITS | Clinical Summary ---
Author Organization [facility] Address [address] [place] [address] Care Team Providers Care Clothes Drier Repairer Name Role Phone Shirlene Asencio MD Primary Care Provider [phone] [phone] Allergies Active Allergy Reactions Severity Noted Date Comments Iron Hives/Urticaria High 11/03/2018 Medications Medication Sig Dispensed Refills Start Date End Date Status valacyclovir (VALTREX) 500 MG tablet Take 1 Tab by mouth as needed (for break outs). 30 Tab 2 11/10/2018 Active sertraline (Zoloft) 50 MG tablet Take 1 Tablet by mouth daily. 90 Tablet 1 01/21/2023 Active Active Problems Problem Noted Date Anxiety 12/10/2022 Severe episode of recurrent major depressive disorder, without psychotic features 12/10/2022 Hypercholesteremia 02/03/2019 Class 2 severe obesity with serious comorbidity and body mass index (BMI) of 37.0 to 37.9 in adult 02/03/2019 Dyspepsia 11/10/2018 Abnormal REM sleep 08/10/2016 Overview: 08/05/2016 Diagnostic Polysomnogram revealed abnormal REM sleep. Sleep consultation recommended. 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 Early labor support identified: Ciaran TDap: 11/09/2014 Feeding Plans: Breast Pedi: [facility]. PP BCM: Baby Name: Valentin FOB name: Ciaran 6) treated for BV @ 19w1d, @34w2d IMO update hydronephrosis 03/18/2011 06/16/2011 Overview: hydronephrosis has persisted throughout the . The baby will need evaluation after delivery. Supervision of normal first 10/17/2010 05/09/2011 Overview: 1. Delivery site: [facility] 2. 12/02 trichomonas treated, 12/20/2010- negative EDUARDO;. 12/30 trichomonas treated, EDUARDO: NEGATIVE on 03/04/2011. 3. HSV type 1- 12/30/2010 start valtrex until delivered Teen 10/17/2010 05/09/2011 Immunizations Name Administration Dates Next Due COVID-19 (OSCAR Bai) PT REPORTED 09/14/2020 DTaP 12/04/1998, 5,06/10/1994,04/08,02/04/1994 Brhb-qpu-fxx-hepb Combined 12/04/1998,,04/08/1994,02/04 HIB 03/10/1995, 5,04/08/1994,02/04 HPV (Gardasil) 08/29/2008,04/28/2008,01/31/2008 Hepatitis B-3 Dose (<19yrs) 09/10/1994, 4,1993 Influenza (> 6 Months) 01/13/2011,01/05/2009, Influenza Vaccine-preservati ve Free-quadrivalent 4 Years 02/03/2019,02/15/2018 Influenza vaccine high dose age 65 and over 03/31/2008 Meningococcal (Menactra) 09/19/2011,01/31/2008 PPD-Negative Response(External) 05/19/2019 PPD-RBMG 05/17/2019 Polio (IPV) 12/04/1998, 5,04/08/1994,02/04 TD (STATE SUPPLIED FOR ADULT S AND CHILDREN) 1993 Td, Adsorbed, Preservative F ree, Adult Use, Lf Unspecified 1993 Tdap 11/09/2014,11/12/2009 Varicella 01/31/2008,09/05/1997 Family History Medical History Relation Name Comments CA Lung Maternal Grandfather Hypertension Maternal Grandmother Relation Name Status Comments Brother 1 Alive Brother 2 Alive Brother 3 Alive Brother 4 Alive Brother 5 Alive Father Alive Maternal Grandfather Maternal Grandmother Alive Mother Alive Paternal Grandfather Alive Paternal Grandmother Alive Son Alive Social History Tobacco Use Types Packs/Day Years Used Date Smoking Tobacco: Never Smokeless Tobacco: Never Alcohol Use Standard Drinks/Week Comments Yes 0 (1 standard drink = 0.6 oz pur e alcohol) occ Sex Assigned at Date Recorded Not on file Job Start Date Occupation Industry Not on file Not on file Not on file Last Filed Vital Signs Vital Sign Reading Time Taken Comments Blood Pressure 100/80 07/15/2023 2:48 PM EDT Pulse 88 07/15/2023 2:48 PM EDT Temperature 36.7 ??C (98 ??F) 12/10/2022 10:49 AM EDT Respiratory Rate 14 10/08/2022 2:45 PM EDT Oxygen Saturation 99% 12/10/2022 10:49 AM EDT Inhaled Oxygen Concentration - - Weight 65.1 kg (143 lb 9.6 oz) 07/15/2023 2:48 P M EDT Height 152.4 cm (5') 07/15/2023 2:48 PM EDT Body Mass Index 28.04 07/15/2023 2:48 PM EDT Plan of Treatment Health Maintenance Due Date Last Done Comments Covid-19 Vaccine (2 - 2022-2 4 season) 2023 09/14/2020 INFLUENZA (#1) 2023 02/03/2019, 1108/2017, 01/13/2011, Additional history exists BMI CHECK/ADVISE 04/13/2024 01/21/2023, , 12/24/2021, Additional history exists DEPRESSION SCREENING/FOLLOWUP 04/13/2024, 01/21/2023, 12/10/2022, Additional history exists SOCIAL NEEDS SCREENING 04/13/2024 , 11/13/2020, 02/03/2019 DTAP/TDAP/TD (8 - Td or Tdap) 11/09/2024, 11/12/2009, 12/04/1998, Additional history exists CERVICAL CANCER SCREENING 12/02/20242021, 10/24/2015, 10/17/2010, Additional history exists BASELINE HEALTH EXAM 18-39 11/16/202511/16, 02/03/2019, 02/03/2019, Additional history exists CHOLESTEROL SCREENING 04/16/2026 04/16/2021 , 02/03/2019, 04/26/2014 PNEUMOCOCCAL VACCINE FOR HIG H RISK PATIENTS (#1) 2058 Care Teams Clothes Drier Repairer Relationship Specialty Start Date End Date Shirlene Asencio MD [address] [place] [address] PCP - General Internal Medicine 11/15/20
--- OUTSIDE RECORDS SUMMARY | 2024-05-09 17:46 | XMS_ITS | Encounter Summary ---
Author Organization [facility] Address [address] [place] [address] Care Team Providers Care Wrapper Dipper Name Role Phone Ynes Doyle MD Primary Care Provider UnavailAdilene Weber Primary Care Provider Jeremi Gasria MD Primary Care Provider UnavailYnes Theodore MD Primary Care Provider Unavaila jhonathan Asencio Ch MD Primary Care Provider [phone] [phone] Reason for Visit * Reason Comments E-prescribe Rx Request Encounter Details Date Type Department Care Team Description 09/06/2015 Refill OBGYN - [place] [address] [place] [address] Sury Turcios, [facility] [address] [place] [address] E-prescribe Rx Request Social History Tobacco Use [...] encounter Miscellaneous Notes * Telephone Encounter - Olga Puri R.N. - 09/07/2015 8:41 AM EDT Letter sent. * Telephone Encounter - Keke Castro - 09/07/2015 8:35 AM EDT WHEN WAS THE PATIENTS LAST ANNUAL LOADING RACK SUPERVISOR EXAM? ? Pt was recently Does patient have an upcoming appointment? No Pt no showed 08/14 (THE MEDICATION REQUESTED IS ON THE MED [...] the end of the day? YES Payor: ELIO / Plan: POS $0 [employer] [id number] / Product Type: POS [id number]-Hkucaif documented in this encounter Plan of Treatment Not on file documented as of this encounter Visit Diagnoses Not on filedocumented in this encounter Care Teams Wrapper Dipper Relationship Specialty Start Date End Date Ynes Doyle MD PCP - General Internal Medicine 05/19/13 05/28/17 Adilene Cheatham PCP - General Internal Medicine 05/29/17 01/27/18 Jeremi Ace MD PCP - General Internal Medicine 01/28/18 08/22/18 Ynes Doyle MD PCP - General Internal Medicine 08/23/18 11/14/20 Shirlene Asencio, [address] [place] [phone] PCP - General Internal Medicine 11/15/20 documented as of this encounter
--- OUTSIDE RECORDS SUMMARY | 2024-05-09 17:46 | XMS_ITS | Encounter Summary ---
Author Organization [facility] Address [address] [place] [address] Care Team Providers Care Ornamental Metalwork Designer Name Role Phone Jeremi Ace MD Primary Care Provider Ynes Mckeon MD Primary Care Provider Swapna Asencio Ch MD Primary Care Provider [phone] Reason for Visit * Reason Comments E-prescribe Rx Request Encounter Details Date Type Department Care Team Description 02/13/2018 Refill Adult Medicine - [place] [address] [place] [address] Kathi Ramirez NP E-prescribe Rx Request Social History Tobacco Use [...] on filedocumented in this encounter Care Teams Ornamental Metalwork Designer Relationship Specialty Start Date End Date Jeremi Ace MD PCP - General Internal Medicine 01/28/18 08/22/18 Ynes Doyle MD PCP - General Internal Medicine 08/23/18 11/14/20 Shirlene Asencio MD [address] [place] [address] PCP - General Internal Medicine 11/15/20 documented as of this encounter
--- OUTSIDE RECORDS SUMMARY | 2024-05-09 17:46 | XMS_ITS | Encounter Summary ---
Author Organization [facility] Address [address] [place] [address] Care Team Providers Care Nail Galvanizer Name Role Phone Shirlene Asencio MD Primary Care Provider [phone] [phone] Encounter Details Date Type Department Care Team Description 12/26/2021 Orders Only Adult Medicine - [place] [address] [place] [address] Shamar Rivera PA-C [address] [place] [address] Social History Tobacco Use Types Packs/Day Years Used Date Smoking Tobacco: Never Smokeless Tobacco: Never Alcohol Use Standard Drinks/Week Comments Yes 0 (1 standard drink = 0.6 oz pur e alcohol) occ Sex Assigned at Date Recorded Not on file Job Start Date Occupation Industry Not on file Not on file Not on file COVID-19 Exposure Response Date Recorded In the last 10 days, have yo u been in contact with someone who was confirmed or suspected to have Coronavirus/COVID-19? No / Unsure 12/24/2021 3:16 PM EDT documented as of this encounter Plan of Treatment Not on file documented as of this encounter Visit Diagnoses Not on filedocumented in this encounter Care Teams Nail Galvanizer Relationship Specialty Start Date End Date Shirlene Asencio MD [address] [place] [address] PCP - General Internal Medicine 11/15/20 documented as of this encounter
--- OUTSIDE RECORDS SUMMARY | 2024-05-09 17:46 | XMS_ITS | Encounter Summary ---
Author Organization [facility] Address [address] [place] [address] Care Team Providers Care Business Liaison Manager Name Role Phone Shirlene Asencio MD Primary Care Provider [phone] [phone] Reason for Visit * Reason Onset Date Comments lab test 12/25/2021 Encounter Details Date Type Department Care Team Description 12/25/2021 Telephone Adult Medicine - [place] [address] [place] [address] Shirlene Asencio MD [address] [place] [address] lab test Social History Tobacco Use Types Packs/Day Years [...] PM EDT documented as of this encounter Miscellaneous Notes * Telephone Encounter - Corinne Saunders - 12/26/2021 11:59 AM EDT Patient is calling back. * Telephone Encounter - Yasmin Lundberg - 12/25/2021 2:17 PM EDT Inform patient: ANY URGENT OR ABNORMAL RESULTS WIILL RESULT IN A CALL BACK TO THE PATIENT THOM. Type of test: :labs Date test was performed: 12/24/21 Where was the test performed: an[facility] Who ordered this test?: Shamar Rivera Is the doctor here today?: Can the message wait until the doctor returns?: YES IF PATIENT'S PCP IS NOT IN INSTRUCT PATIENT THAT THEY WILL RECEIVE A CALL BACK WHEN THE PCP IS IN THE OFFICE NEXT. documented in this encounter Plan of Treatment Not on file documented as of this encounter Visit Diagnoses Not on filedocumented in this encounter Care Teams Business Liaison Manager Relationship Specialty Start Date End Date Shirlene Asencio MD [address] [place] [id number] PCP - General Internal Medicine 11/15/20 documented as of this encounter
--- OUTSIDE RECORDS SUMMARY | 2024-05-09 17:46 | XMS_ITS | Encounter Summary ---
Author Organization [facility] Address [address] [place] [address] Care Team Providers Care Design Technician Name Role Phone Ynes Doyle MD Primary Care Provider Adilene Kenny Primary Care Provider Jeremi Garsia MD Primary Care Provider Ynes Mckeon MD Primary Care Provider Unavaila jhonathan Asencio Ch MD Primary Care Provider [phone] [phone] Reason for Visit * Reason Comments E-prescribe Rx Request YULISSA Encounter Details Date Type Department Care Team Description 04/08/2016 Refill OBGYN - [place] [address] [place] [address] Khushboo Cheung DO E-prescribe Rx Request (YULISSA) Social History Tobacco Use Types Packs/Day Years [...] encounter Miscellaneous Notes * Telephone Encounter - Regine Seun - 04/08/2016 1:09 PM EST WHEN WAS THE PATIENTS LAST ANNUAL EVENT AV OPERATOR EXAM? 10/24/15 Does patient have an upcoming appointment? No (THE MEDICATION REQUESTED IS ON THE MED LIST ABOVE) Did you check the Pharmacy information above?: YES Indicate how soon the patient needs the script: BY THE END OF THE DAY Patient would like script to be: E-PRESCRIBED/FAXED TO PHARMACY Is the doctor here today?: YES Can the message wait until the doctor returns?: NO Has the patient been told that the prescription will not be filled until the end of the day? YES Payor: ELIO / Plan: POS $0 [employer] [id number] / Product Type: POS Ysp-kcx-Moraaem documented in this encounter Plan of Treatment Not on file documented as of this encounter Visit Diagnoses Not on filedocumented in this encounter Care Teams Design Technician Relationship Specialty Start Date End Date Ynes Doyle MD PCP - General Internal Medicine 05/19/13 05/28/17 Adilene Cheatham PCP - General Internal Medicine 05/29/17 01/27/18 Jeremi Ace MD PCP - General Internal Medicine 01/28/18 08/22/18 Ynes Doyle MD PCP - General Internal Medicine 08/23/18 11/14/20 Shirlene Asencio MD [address] [place] [id number] PCP - General Internal Medicine 11/15/20 documented as of this encounter
--- OUTSIDE RECORDS SUMMARY | 2024-05-09 17:46 | XMS_ITS | Encounter Summary ---
Author Organization [facility] Address [address] [place] [address] Care Team Providers Care Buildings And Grounds Supervisor Name Role Phone Ynes Doyle MD Primary Care Provider Adilene Kenny Primary Care Provider Jeremi Garsia MD Primary Care Provider Ynes Mckeon MD Primary Care Provider Unavaila jhonathan Asencio Ch MD Primary Care Provider [phone] [phone] Reason for Visit * Reason Onset Date Comments refill request 10/11/2015 Encounter Details Date Type Department Care Team Description 10/11/2015 Telephone OBN - [address] [address] Galilea Vizcarra CNM refill request Social History Tobacco Use Types Packs/Day Years [...] encounter Miscellaneous Notes * Telephone Encounter - Wendy Reza - 10/11/2015 2:44 PM EDT Left message for pt call back and make appt * Telephone Encounter - Olga Puri R.N. - 10/11/2015 2:39 PM EDT Pt needs annual appt * Telephone Encounter - Wendy Reza - 10/11/2015 2:32 PM EDT WHEN WAS THE PATIENTS LAST ANNUAL PATIENT SUPPORT PARTNER EXAM? ?- pt had Last year Does patient have an upcoming appointment? No [...] YES Payor: ELIO / Plan: POS $0 AMEYA [id number] / Product Type: POS [id number]-Iwnltkb documented in this encounter Plan of Treatment Not on file documented as of this encounter Visit Diagnoses Not on filedocumented in this encounter Care Teams Buildings And Grounds Supervisor Relationship Specialty Start Date End Date Ynes Doyle MD PCP - General Internal Medicine 05/19/13 05/28/17 Adilene Cheatham PCP - General Internal Medicine 05/29/17 01/27/18 Jeremi Ace MD PCP - General Internal Medicine 01/28/18 08/22/18 Ynes Doyle MD PCP - General Internal Medicine 08/23/18 11/14/20 Shirlene Asencio, [address] [place] [id number] PCP - General Internal Medicine 11/15/20 documented as of this encounter
--- OUTSIDE RECORDS SUMMARY | 2024-05-09 17:46 | XMS_ITS | Encounter Summary ---
Author Organization [facility] Address [address] [place] [address] Care Team Providers Care Opto Mechanical Engineer Name Role Phone Ynes Doyle MD Primary Care Provider Adilene Kenny Primary Care Provider Jeremi Garsia MD Primary Care Provider Ynes Mckeon MD Primary Care Provider Unavailkhalif Asencio Ch MD Primary Care Provider [phone] [phone] Encounter Details Date Type Department Care Team Description 11/22/2014 Night Triage Doc Medical Records [address] [place] [id number] Abstract, Provider Social History Tobacco Use Types [...] on filedocumented in this encounter Care Teams Opto Mechanical Engineer Relationship Specialty Start Date End Date Ynes Doyle MD PCP - General Internal Medicine 05/19/13 05/28/17 Adilene Cheatham PCP - General Internal Medicine 05/29/17 01/27/18 Jeremi Ace MD PCP - General Internal Medicine 01/28/18 08/22/18 Ynes oDyle MD PCP - General Internal Medicine 08/23/18 11/14/20 Shirlene Asencio, [address] [place] [phone] PCP - General Internal Medicine 11/15/20 documented as of this encounter
--- OUTSIDE RECORDS SUMMARY | 2024-05-09 17:46 | XMS_ITS | Encounter Summary ---
Author Organization [facility] Address [address] [place] [address] Care Team Providers Care Wood Hacker Name Role Phone Ynes Doyle MD Primary Care Provider [facility] jhonathan Asencio Ch MD Primary Care Provider [phone] Encounter Details Date Type Department Care Team Description 05/17/2019 Orders Only Adult Medicine - [address] [address] Ynes Doyle MD Screening examination for pulmonary tuberculosis Social History Tobacco Use Types Packs/Day Years [...] on file documented as of this encounter Procedures Procedure Name Priority Date/Time Associated Diagnosis Comments CHG SKIN TEST TUBERCULOSIS INTRADERMAL Routine 05/17/2019 1:06 PM EST Screening examination for pulmonary tuberculosis documented in this encounter Visit Diagnoses Diagnosis Screening examination for pulmonary tuberculosis documented in this encounter Care Teams Wood Hacker Relationship Specialty Start Date End Date Ynes Doyle MD PCP - General Internal Medicine 08/23/18 11/14/20 Shirlene Asencio MD [address] [place] [address] PCP - General Internal Medicine 11/15/20 documented as of this encounter
--- OUTSIDE RECORDS SUMMARY | 2024-05-09 17:46 | XMS_ITS | Encounter Summary ---
Author Organization [facility] Address [address] [place] [address] Care Team Providers Care Semiconductor Dies Loader Name Role Phone Ynes Doyle MD Primary Care Provider Adilene Kenny Primary Care Provider Jeremi Garsia MD Primary Care Provider Ynes Mckeon MD Primary Care Provider Unavailkhalif Asencio Ch MD Primary Care Provider [phone] [phone] Reason for Visit * Reason Onset Date Comments er follow up 03/27/2017 [facility] Encounter Details Date Type Department Care Team Description 03/27/2017 Telephone Adult Medicine - [address] [address] Ynes Doyle MD er follow up ([facility]) Social History Tobacco Use Types Packs/Day Years [...] encounter Miscellaneous Notes * Telephone Encounter - Chemo Platt - 03/27/2017 11:02 AM EST Appt scheduled with Kathi Miramontes 04/01 * Telephone Encounter - Isael Wing LPN - 03/27/2017 10:45 AM EST Please schedule this er follow up , thank you WARREN woodson * Telephone Encounter - Anabel Segura - 03/27/2017 9:45 AM EST Please see attached letter for ER f/u- pt has 3 stitches that need to be removed by Thursday. Please advise. documented in this encounter Plan of Treatment Not on file documented as of this encounter Visit Diagnoses Not on filedocumented in this encounter Care Teams Semiconductor Dies Loader Relationship Specialty Start Date End Date Ynes Doyle MD PCP - General Internal Medicine 05/19/13 05/28/17 Adilene Cheatham PCP - General Internal Medicine 05/29/17 01/27/18 Jeremi Ace MD PCP - General Internal Medicine 01/28/18 08/22/18 Ynes Doyle MD PCP - General Internal Medicine 08/23/18 11/14/20 Shirlene Asencio, [address] [place] [phone] PCP - General Internal Medicine 11/15/20 documented as of this encounter
--- OUTSIDE RECORDS SUMMARY | 2024-05-09 17:46 | XMS_ITS | Encounter Summary ---
Author Organization [facility] Address [address] [place] [address] Care Team Providers Care Sap Portal Developer Name Role Phone Ynes Doyle MD Primary Care Provider Adilene Kenny Primary Care Provider Jeremi Garsia MD Primary Care Provider Ynes Mckeon MD Primary Care Provider Unavailkhalif Asencio Ch MD Primary Care Provider [phone] Encounter Details Date Type Department Care Team Description 11/21/2014 Night Triage Doc Medical Records [address] [place] [id number] Abstract, Provider Social History Tobacco Use Types [...] on filedocumented in this encounter Care Teams Sap Portal Developer Relationship Specialty Start Date End Date Ynes Doyle MD PCP - General Internal Medicine 05/19/13 05/28/17 Adilene Cheatham PCP - General Internal Medicine 05/29/17 01/27/18 Jeremi Ace MD PCP - General Internal Medicine 01/28/18 08/22/18 Ynes Doyle MD PCP - General Internal Medicine 08/23/18 11/14/20 Shirlene Asencio, [address] [place] [address] [id number] PCP - General Internal Medicine 11/15/20 documented as of this encounter
--- OUTSIDE RECORDS SUMMARY | 2024-05-09 17:46 | XMS_ITS | Clinical Summary ---
Author Organization [facility] [address] [facility] lding Address [address] [place] [address] Phone Care Team Providers Care Petrophysicist Name Role Phone Yadi Asencio MD Primary Care Prov ider Allergies Active Allergy Reactions Criticality Noted Date Comments Iron Hives High 11/03/2018 Medications Medication Sig Dispensed Refills Start Date End Date Status valACYclovir (VALTREX) 500 mg tablet Take 1 tablet (500 mg total) by mouth. 11/10/2018 Active sertraline (ZOLOFT) 50 mg tablet TAKE HALF TABLET DAILY X FOR 1 WEEK, THEN 1 TAB PER DAY Active progesterone (Endometrin) 100 mg vaginal insert Insert 1 tablet (100 mg total) into the vagina 2 (two) times a day. 90 tablet 3 03/17/2024 03/17/2025 Active triamcinolone (KENALOG) 0.025 % ointment Apply 3-4x/day to affected area 15 g 1 03/17/2024 Active progesterone (PROMETRIUM) 100 mg capsule Insert 1 capsule (100 mg total) into the vagina 2 (two) times a day. 90 capsule 3 03/17/2024 03/17/2025 Active vitamin ( Multivitamins) iron fum-folic acid 28-0.8 mg per tablet Take 1 tablet by mouth 1 (one) time each day. 01/13/2023 Active Active Problems Problem Noted Date Diagnosed Date Class 2 severe obesity with serious comorbidity and body mass index (BMI) of 37.0 to 37.9 in adult 05/09/2024 History of delivery 04/28/2024 Overview (04/28/2024): 1st -delivered at 35.3 weeks History of hemorrhage 04/28/2024 depression 04/27/2024 Genital HSV 04/27/2024 History of sleeve gastrectomy 04/27/2024 Overview (04/27/2024): 04/2022 [facility] 04/27/2024 Overview (05/05/2024): 1. [facility] site: [facility]: [address] [place] [phone] ([phone]) 2. Delivery site: [facility] 3. Mobile Mommas: No 4. Dating criteria: LMP 5. Blood type: A+ 6. Genetic screening: Date: Result: Panorama: Ordered: 04/28/24- low risk - declined sex of baby Horizon: Ordered Nuchal: Ordered Survey: MSAFP: 6. GBS: Date: 7. FOB name: Bernardino- his 1st child 8. Plans A. Epidural or other pain management - B. Labor support identified - C. Tdap - Date: Flu - Date: D. Breast or Bottle feed: Both Breast and Bottle feeding E. Baby's name - F. Circumcision - 9. Hospital Course: Obesity complicating childbirth 04/27/2024 Overview (04/28/2024): BMI-30.08 HgbA1C and 1 hour GTT at initial labs ASA 162mg at 12 weeks until delivery Detailed anatomy ultrasound Repeat GTT 24-28 weeks if early is normal Pre-preg BMI 35-39.9: NST weekly at 37 weeks Pre-preg BMI >40: NST weekly at 34 weeks Pre-preg BMI >45: NST weekly at 32 weeks Growth US at 32 and 36 weeks for BMI >40 BMI of 50 by 28wks transfer to [facility] DVT prophylaxis- Lovenox if CS and BMI >35 Anxiety 12/10/2022 Severe episode of recurrent major depressive disorder, without psychotic features 12/10/2022 Hypercholesteremia 02/03/2019 Dyspepsia 11/10/2018 Abnormal REM sleep 08/10/2016 Overview (04/27/2024): 08/05/2016 Diagnostic Polysomnogram revealed abnormal REM sleep. Sleep consultation recommended. Depression 12/08/2013 Overview (04/27/2024): Suicide attempt, hosp 04/23 Strabismus 12/08/2013 Estimated Date of Delivery Comme nts Yes 11/25/2024 Based on last me nstrual period of 02/19/2024 (Approximate) Resolved Problems Problem Noted Date Diagnosed Date Resolved Date High-risk 04/27/2024 04/28/19 Encounters Date Type Department Care Team Description 05/09/2024 10:53 AM EST Hospital Encounter [facility]trasound - [facility] [address] [place] [address] Vaginal bleeding in , first trimester 05/09/2024 Telephone Obstetrics and Gynecology - [address] [phone] Josefina Khalil CNM 05/05/2024 Telephone Obstetrics and Gynecology [address] [phone] Olga Puri, RN Results ([place]) 05/02/2024 Telephone Obstetrics and Gynecology - [address] [phone] Ally Weiss MA 04/28/2024 3:00 PM EST Clinical Support Obstetrics and Gynecology - [address] [phone] Encounter for supervision of normal first in first trimester (Primary Dx); Obesity complicating childbirth; History of delivery; care, subsequent in first trimester 04/05/2024 Telephone Obstetrics and Gynecology [address] [phone] Arthur Sampson CNM 04/01/2024 2:06 PM EST - 04/01/2024 11:59 PM EST Hospital Encounter Radiology Department - [id number] [place] [phone] examination or test, positive result Discharge Disposition: Home or Self Care 03/29/2024 Telephone Obstetrics and Gynecology - [address] [phone] Arthur Sampson CNM Problem 03/22/2024 Telephone Obstetrics and Gynecology - [address] [phone] Olga Puri RN Results 03/17/2024 10:30 AM EST Office Visit Obstetrics and Gynecology - [address] [phone] Adelina Chisholm CNM Period has come late (Primary Dx); test positive; Venereal disease screening; Habitual aborter; Vaginal odor; Vaginal discharge; Vaginal irritation; examination or test, positive result from Last 3 Months Immunizations Name Administration Dates Next Due DTaP (Infanrix) 6wks to less than 7yo ,03/10/1995,06/10/1994,04/08,02/04/1994 DTaP, IPV, Hib, Hepatitis B Combined (Vaxelis) 6wks to less than 5yo 12/04/1998,06/10/1994,04/08/1994,02/04 [id number] (Pentacel) 2mo to less than 5yo 03/10/1995,06/10/1994,04/08/1994,02/04 HPV, Quadrivalent 08/29/2008,04/28/2008,01/31/20 08 Hepatitis B Pediatric (Enger ix B; Recombivax HB) to less than 20 yo 09/10/1994,02/04/1994,1993 HiB PRP-T conjugate (Acthib, Hiberix) 6wks and older 03/10/1995,06/10/1994,04/08/1994,02/04 IPV Inactivated polio (Ipol) 6wks and older 12/04/1998,06/10/1994,04/08/1994,02/04 Influenza Quadravalent, MDCK , 0.5ml, preservative free (Flucelvax) 6mo and older 02/03/2019,02/15/2018 Influenza Quadrivalent, with preservative (Fluzone; Afluria) 6mo and older 03/31/2008 Influenza trivalent, with pr eservative (Fluzone; Afluria) 6mo and older 05/05/2017,01/13/2011,01/05/2009 MMR, measles mumps and rubel la Live (Priorix; M-M-R II) 12mo and older 12/04/1998,12/08/1994 Meningococcal MCV4P 09/19/2011,01/31/2008 PPD Test 05/19/2019,05/17/2019 Td Tetanus diptheria (Tdvax) 7yo and older 1993 Td Tetanus diptheria, preser vative free (Tenivac) 7yo and older 12/07/2003 Tdap Tetanus diptheria acell ular pertussis (Boostrix; Adacel) 7yo and older 03/23/2017,11/09/2014,11/12/2009,05/21 Varicella live (Varivax) 12m o and older 01/31/2008,09/05/1997 Surgical History Surgery Date Site/Laterality Comments TONSILLECTOMY ADENOIDECTOMY, BILATERAL MYRINGOTOMY AND TUBES age 5 PROCEDURE: [place] TONSILLECTOMY & ADENOIDECTOMY <AGE 10 Medical History Medical History Date Comments Trichomonas contact, treated 11/2010, 12/2010 DX: Trichomonas contact, treated hydronephrosis 03/18/2011 DX: hy dronephrosis Depression 12/08/2013 DX:Depression Strabismus 12/08/2013 DX:Strabismus Anxiety 12/10/2022 Asthma Family History Medical History Relation Name Comments Hypertension Father Lung cancer Maternal Grandfather Hypertension Maternal Grandmother Lung cancer Maternal Grandmother Hypertension Mother pre-diabetes Mother Diabetes Paternal Grandfather Parkinsonism Paternal Grandmother Relation Name Status Comments Brother 1 Alive Brother 2 Alive Brother 3 Alive Brother 4 Alive Daughter Alive Father Alive Maternal Grandfather Maternal Grandmother Mother Alive Paternal Grandfather Alive Paternal Grandmother Alive Son Alive Social History Tobacco Use Types Packs/Day Years Used Date Smoking Tobacco: Never Smokeless Tobacco: Never Alcohol Use Standard Drinks/Week Comments Not Currently 0 (1 standard drink = 0.6 oz pur e alcohol) Housing Instability Answer Date Recorde d Are you worried that in the next 2 months you may not have stable housing? No 04/21/2024 Food Access & Nutrition Answer Date Rec orded Do you have access to a vari ety of food including fruits and vegetables? Yes 04/21/2024 Access to Healthcare Answer Date Record ed Within the last 3 months, ho w many times did you visit the emergency department for your medical care? 0 04/21/2024 Health Literacy Answer Date Recorded How often do you need to hav e someone help you when you read instructions, pamphlets, or other written material from your doctor or pharmacy? Never 04/21/2024 Caregiver: How often do you need to have someone help you when you read instructions, pamphlets, or other written material from your doctor or pharmacy? Not on file 04/21/2024 Financial Risk Answer Date Recorded How hard is it for you to pa y for the very basics like food, housing, medical care, and air conditioning / heating? Somewhat hard 04/21/2024 Transportation Answer Date Recorded Has the lack of transportati on kept you from meetings, work, or from getting things needed for daily living? No Has the lack of transportati on kept you from medical appointments or from getting medications? No 04/21/2024 Social Isolation Answer Date Recorded How often do you feel lonely or isolated from those around you? Sometimes 04/21/2024 Food Risk Answer Date Recorded Within the past 12 months we worried whether our food would run out before we got money to buy more. Never true 04/21/2024 Within the past 12 months th e food we bought just didn't last and we didn't have money to get more. Never true 04/21/2024 Dependent Care Answer Date Recorded Do you need help finding or paying for care for your loved ones. For example, child monitor or elderly care for an older adult? No 04/21/2024 Education Answer Date Recorded Do you think completing more education or training, like finishing a GED, going to college, or learning a trade, would be helpful for you? No 04/21/2024 Employment and Income Answer Date Recor ded During the last four weeks, have you been actively looking for work? No 04/21/2024 Living Situation Answer Date Recorded What is your living situation? 0 04/21/2024 Estimated Date of Delivery Comme nts Yes 11/25/2024 Based on last me nstrual period of 02/19/2024 (Approximate) Sex and Gender Information Value Date Recorded Sex Assigned at Not on file Gender Identity Not on file Sexual Orientation Not on file Job Start Date Occupation Industry Not on file Not on file Not on file Obstetrics History Para Term AB IAB SAB Ectopic Multiple Livin g Live Births 8 3 2 1 4 4 3 3 Date Outcome GA Total Labor Labor//3rd Weight Sex Type Anes PTL Rhina A1 A5 Name Clin 1 SAB 2010 35w 3d 9h 02m/ 2163 g (76.3 oz) M Vag-S pont Epidur al Livin g 8 8 Dougla s Vladimir Myers nne Turcios CN Delivery Location:[facility] Comments:GBS neg, loos e cord around foot x 1 2014 Term 2637 g (93 oz) M Vag-S pont Livin g 8 9 M. ADRIÁN Viveros Delivery Location:[facility] 2017 Term F Vag-S pont Livin g Complications:None,PPH (post hemorrhage) 2023 SAB SAB 2023 SAB SAB 2023 SAB SAB Current Summary Episode Dates Number of Fetuses Estimated Date of Delivery 04/27/2024 - Present (05/09/2024) 1 11/25/2024 (set by Olga Puri RN on 04/27/2024 based on Last Menstrual Period on 02/19/2024 (Approximate)) Dating Summary Based On JONY GA Diff Last Menstrual Period on 02/19/2024 (Approximate ) 11/25/2024 Working Ultrasound on 04/01/2024 11/25/2024 Same GA:6w0d Overview and Plan :Rosales Support person:Bernardino Delivery Plans Post-Delivery Plans Planned delivery method:Vaginal Feeding intentions:Breast and Formula Feeding Acceptable blood products:All Vitals Pregravid Weight Height TWG (As of 05/09/2024) Pregrav id BMI 69.9 kg (154 lb) 1.524 m (60 ) 0 kg (0 lb) 30.08 Notes Progress Notes - Clinical Simmons pport - 04/28/2024 - GA:9w6d 04/28/2024 - 9w6d - Berta purcell, Olga Oviedo RN Chayo Randhawa is a 28 y.o. old female at 9w6d. This is Planned. The patient feels happy about the . The FOB is supportive. Patient's last menstrual period was Patient's last menstrual period was 02/19/2024 (approximate). (exact date)., which would make her currently 9w6d with an Estimated Date of Delivery: 11/25/24. She is certain of her date. An ultrasound has not been ordered to confirm dating Patient has significant history of: labor , PPH, PPD OB Past Medical History: Have you had or do you currently have: Diabetes? No Hypertension? No Heart disease, Mitral valve Prolapse, or Rheumatic fever? Pt born with hole in heart -resolved An Autoimmune disease such as Lupus or Rheumatoid Arthritis? No Epilepsy, Seizures, or Spells? No Migraine Headaches? No Stroke or loss of function or sensation? No Additional Questions: Have you ever been treated for anxiety and/or depression? Yes- also PPD Are you having problems with crying spells or loss of self-esteem? No Have you ever required psychiatric care? No Have you ever had hepatitis, liver disease or jaundice? No Have you ever been treated for blood clots in your veins, deep venous thrombosis, inflammation in the veins, thrombosis, phlebitis, pulmonary embolism or varicosities? No Have you had excessive bleeding after surgery or dental work? Had PPH after delivery in 2018 Do you bleed more than other women after a cut or scratch? No Do you have a history of anemia? Yes Have you ever had Thyroid problems or taken Thyroid medications? No Do you have any other Endocrine Problems (ie. PCOS)? No Have you ever been in a major accident or suffered serious trauma? No Within the last year, has anyone hit, slapped, kicked or otherwise hurt you? No In the last year, has anyone forced you to have sex when you didn't want to? No Do you feel safe at home? Yes Have you ever received a blood transfusion? No Would you refuse a blood transfusion if a doctor judged to be medically necessary? No Would you rather than receive a blood transfusion? No If you answered yes to the above questions, is this for yazidism reasons? No Do you know what your blood type is or if you are Rh Negative? No Have you ever had abnormal antibodies in your blood? No Have you ever had asthma? Yes Have you every had Tuberculosis? No Have you ever had any breast problems? No Have you ever breast fed? Yes Have you ever had any gynecological surgical procedures such as cervical conization, LEEP procedure, Laser treatment, cryosurgery of the cervix or dilation and curettage, etc? No Have you had any other surgical procedures? Yes Have you ever been hospitalized overnight for a non-surgical reason excluding normal delivery? No Have you ever had anesthesia complications? No Have you ever had an abnormal pap smear? No Do you have a history of abnormalties of the uterus? No Did your mother take PINEDA or any other hormones when she was with you? No Did it take more than one year to become ? No Have you ever been evaluated or treated for infertility? No Is there a history of medical problems in your family which you feel might adversely affect your health or ? No Do you have any other problems we have not asked you about which you feel may be important for us to know for this ? No Do you currently have any of the following symptoms since your last menstrual period: Abdominal pain, blood in the stool or urine, chest pain, shortness of breath, coughing or vomiting up blood, your heart racing or skipping beats, nausea and/or vomiting, pain on urination, or vaginal discharge or vaginal bleeding? No OB Infection History: Do you object to being tested for Hepatitis B? No Do you object to being tested for HIV? No Do you feel that you are at high risk for coming contact with the AIDS virus? No Have you ever been treated for tuberculosis? No Have you ever received the BCG vaccine? No Have you ever had a positive skin test for Tuberculosis? No Do you live with someone who has Tuberculosis? No Have you ever been exposed to Tuberculosis? No Do you have Genital Herpes? Yes Does your partner have Genital Herpes? No Have you had a rash or viral illness since your last period? No Have you ever had Gonorrhea, Chlamydia, Syphilis, Venereal Warts, Trichomoniasis, Pelvic Inflammatory Disease (PID) or any other sexually transmitted disease? No Do you know if you are a Group B Streptococcus Carrier? Did you have the Chicken Pox/Varicella? Yes Were you vaccinated against Chicken Pox/Varicella? No Have you had any other infectious diseases? No Chayo Randhawa has been instructed on the following: random urine drug screening polciy and an initial urine drug screen has been ordered. Chayo Randhawa has also been informed of the tool or die drawing checker provider recommendation for first trimester nuchal lucency testing to be performed during her . Chayo Randhawa has also been made aware of the time sensitive nature for this testing to be completed. . The patient now has a gestational age of 9w6d. The patient has agreed that she does want nuchal lucency testing. Ethnicity Based Genetic Testing has been reviewed and the [facility] information sheet has been provided to the patient in their After Visit Summary. The patient was also advised that genetic testing may not be covered by all insurances. The patients states that they understand this information. The patient states that she has not had the genetic screening for Horizon 14 done in the past during a previous . The patient has agreed that she does want genetic testing for Horizon 14 and Panorama The following Labs have been ordered: Obstetric Panel, HgA1c, Early Glucose Screen, HIV with verbal Consent, Hepatitis C, Varicella titer, Urine Culture, UDS, Panorama with gender, and Horizon 14 panel She is aware that her insurance may or may not cover Panorama and/or Horizon 14 test and discussed goins only santiago for test(s) - info given today in her after visit summary . She would like to proceed with testing. Electronically signed by: Olga Puri RN 04/28/24 3:05 PM EST Last Filed Vital Signs Vital Sign Reading Time Taken Comments Blood Pressure 107/75 03/17/2024 10:43 AM EST Pulse 83 03/17/2024 10:43 AM EST Temperature - - Respiratory Rate - - Oxygen Saturation - - Inhaled Oxygen Concentration - - Weight 69.9 kg (154 lb) 04/28/2024 2:57 PM EST Height 152.4 cm (5') 04/28/2024 2:57 PM EST Body Mass Index 30.08 04/28/2024 2:57 PM EST Plan of Treatment Upcoming Encounters Date Type Department Care Team (Late st Contact Info) Description 05/12/2024 1:00 PM EST Initial Obstetrics and Gynecology - [place] [address] [place] [phone] Arthur Sampson, CN [address] [place] [phone] 05/13/2024 9:00 AM EST Ancillary Procedure Maternal Medicine - [place] [address] [place] [address] Health Maintenance Due Date Last Done Comments COVID-19 Vaccine ( season) 2023 09/14/2020 Influenza Vaccine (#1) 2023 9, 02/15/2018, 05/05/2017, Additional history exists Depression Screening 04/21/2025 04/21/2024 Social Influencers of Health Screening 04/21/2025 04/21/2024 Cholesterol Screening (Lipid Panel) 04/16/2026 04/16/2021 Cervical Cancer Screening: HPV 12/02/2026 12/02/2021 DTaP,Tdap,and Td Vaccines (11 - Td or Tdap) 03/23/2027 03/23/2017, 11/09/2014, 11/12/2009, Additional history exists HIB Vaccines Completed 12/04/1998, 02/12, 03/10/1995, Additional history exists Hepatitis B Vaccines Completed 12/04/1998, 09/10/1994, 06/10/1994, Additional history exists IPV Vaccines Completed 12/04/1998, 11/12, 03/10/1995, Additional history exists HPV Vaccines Completed 08/29/2008, 04/13, 01/31/2008 Meningococcal ACWY Vaccine Completed 09/19/2011, HIV Screening Completed 04/28/2024, 2019 Hepatitis C Screening Completed 04/28/2024, 020 Hepatitis A Vaccines Aged Out No long er eligible based on patient's age to complete this topic Pneumococcal Vaccine: Pediatrics (0 to 5 Years) and At-Risk Patients (6 to 64 Years) Aged Out No longer eligible based on patient's age to complete this topic RSV Immunization Patients Under 20 months Aged Out No longer eligible based on patient's age to complete this topic Procedures Procedure Name Priority Date/Time Associated Diagnosis Comments US OB LESS 14 WKS SINGLE OR FIRST GESTATION STAT 05/09/2024 11:34 AM EST Vaginal bleeding in , first trimester HORIZON 14, AMANDA Routine 05/06/2024 3: 50 PM EST VENIPUNCTURE CHARGE Routine 04/28/2024 4 :04 PM EST test positive Habitual aborter Obesity complicating childbirth Encounter for supervision of normal first in first trimester GTT GESTATIONAL 1 HOUR Routine 4:03 PM EST Obesity complicating childbirth Encounter for supervision of normal first in first trimester CBC WITH AUTO DIFFERENTIAL Routine 04/28/2024 4:03 PM EST Obesity complicating childbirth Encounter for supervision of normal first in first trimester TREPONEMA PALLIDUM ANTIBODY WITH REFLEX TO RPR AND PARTICLE AGGLUTINATION Routine 04/28/2024 4:03 PM EST Obesity complicating childbirth Encounter for supervision of normal first in first trimester VARICELLA ZOSTER ANTIBODY IGG Routine 04/28/2024 4:03 PM EST Obesity complicating childbirth Encounter for supervision of normal first in first trimester HEPATITIS B SURFACE ANTIGEN WITH CONFIRMATION Routine 04/28/2024 4:03 PM EST Obesity complicating childbirth Encounter for supervision of normal first in first trimester GLUCOSE TOLERANCE TEST, 1H GESTATION Routine 04/28/2024 4:03 PM EST Obesity complicating childbirth Encounter for supervision of normal first in first trimester HEMOGLOBIN A1C Routine 04/28/2024 4:03 PM EST Obesity complicating childbirth Encounter for supervision of normal first in first trimester RUBELLA ANTIBODY IGG Routine 04/28/2024 4:03 PM EST Obesity complicating childbirth Encounter for supervision of normal first in first trimester HIV 1, 2 ANTIBODY, P24 ANTIGEN WITH REFLEX TO DIFFERENTIATION Routine 04/28/2024 4:03 PM EST Obesity complicating childbirth Encounter for supervision of normal first in first trimester HEPATITIS C ANTIBODY Routine 04/28/2024 4:03 PM EST Obesity complicating childbirth Encounter for supervision of normal first in first trimester DRUG ABUSE SCREEN EXPANDED WITH REFLEX CONFIRMATION, URINE Routine 04/28/2024 4:03 PM EST Obesity complicating childbirth Encounter for supervision of normal first in first trimester CBC AND DIFFERENTIAL Routine 04/28/2024 4:03 PM EST Obesity complicating childbirth Encounter for supervision of normal first in first trimester TYPE AND SCREEN Routine 04/28/2024 4:03 PM EST Obesity complicating childbirth Encounter for supervision of normal first in first trimester HCG, QUANTITATIVE Routine 04/28/2024 4:0 3 PM EST test positive Habitual aborter US OB LESS 14 WKS SINGLE OR FIRST GESTATION Routine 04/01/2024 2:21 PM EST examination or test, positive result HCG, QUANTITATIVE Routine 03/23/2024 2:3 3 PM EST test positive Habitual aborter HCG, QUANTITATIVE Routine 03/21/2024 2:2 7 PM EST test positive Habitual aborter TRICHOMONAS VAGINALIS ANTIGEN Routine 03/17/2024 11:59 AM EST Vaginal odor Vaginal discharge Vaginal irritation WET PREP, GENITAL Routine 03/17/2024 11: 59 AM EST Vaginal odor Vaginal discharge Vaginal irritation CHLAMYDIA TRACHOMATIS AND NEISSERIA GONORRHOEAE PCR Routine 03/17/2024 11:50 AM EST Venereal disease screening HCG, QUANTITATIVE Routine 03/17/2024 11: 48 AM EST test positive Habitual aborter POC PREGANCY, URINE SCREENING Routine 03/17/2024 10:44 AM EST Period has come late HM HPV Routine 12/02/2021 LIPID PANEL Routine 04/16/2021 from Last 3 Months or Most Recently Relevant to Health Maintenance Results * US OB Less 14 Wks Single or First Gestation (05/09/2024 11:34 AM EST) Only the most recent of2 resultswithin the time period is included. Anatomical Region Laterality Modality Body Ultrasound 05/09/2024 12:4 3 PM EST Narrative 05/09/2024 12:45 PM EST Obstetrical ultrasound. History bleeding in . Comparison with previous examination from 04/01/2024. Based on first ultrasound estimated gestational age is 11 weeks 3 days, estimated due date 11/25/2024. Study was performed transabdominally. There is single live intrauterine gestation with crown-rump length of from 5.02 cm which corresponds to the estimated gestation of 11 weeks 6 days. This reflects normal interval growth of the fetus. heart rate is 165 bpm. CONCLUSIONS: Single live intrauterine gestation of 11 weeks 3 days, estimated due date . Normal interval growth of the fetus. heart rate is 165 bpm. -------- FINAL REPORT -------- Dictated By: Verna Macario Dictated Date: 05/09/2024 12:43 ET Assigned Physician: Verna Macario Reviewed and Electronically Signed By: Verna Macario Signed Date: 05/09/2024 12:45 ET Workstation ID: [id number] Transcribed By: Self Edit Transcribed Date: 05/09/2024 12:43 ET Procedure Note Verna Macario MD - 05/09/2024 Obstetrical ultrasound. History bleeding in . Comparison with previous examination from 04/01/2024. Based on first ultrasound estimated gestational age is 11 weeks 3 days,estimated due date 11/25/2024. Study was performed transabdominally. There is single live intrauterine gestation with crown-rump length of from5.02 cm which corresponds to the estimated gestation of 11 weeks 6 days.This reflects normal interval growth of the fetus. heart rate is 165bpm. CONCLUSIONS: Single live intrauterine gestation of 11 weeks 3 days,estimated due date . Normal interval growth of the fetus. heart rate is 165 bpm. -------- FINAL REPORT -------- Dictated By: Verna Macario Dictated Date: 05/09/2024 12:43 ET Assigned Physician: Verna Macario Reviewed and Electronically Signed By: Verna Macario Signed Date: 05/09/2024 12:45 ET Workstation ID: [id number] Transcribed By: Self Edit Transcribed Date: 05/09/2024 12:43 ET Josefina Khalil CNM IMG OB US PROCEDURE S * Horizon 14 (05/06/2024 3:50 PM EST) Blood Venous blood specimen / Unknown Arthur Sampson CNM LAB BLOOD ORDERABLES * Venipuncture charge (04/28/2024 4:04 PM EST) Pathologist [facility] Extra Tube Hold for add-ons. 04/28/2024 6:01 PM EST [facility] JEANNETTE ([place]) Comment:Auto resulted. Blood Venous blood specimen / Unknown Venipuncture / Unknown 04/28/2024 4:04 PM EST 04/28/2024 4:04 PM EST Arthur Sampson CNM LAB BLOOD ORDERABLES [facility] JEANNETTE LARA) [facility] * Hepatitis C antibody (04/28/2024 4:03 PM EST) [facility] Hepatitis C Antibody Negative Negative LAB CHEMISTRY METHOD 04/28/2024 10:12 PM EST [facility] Blood Venous blood specimen / Unknown Venipuncture / Unknown 04/28/2024 4:03 PM EST 04/28/2024 4:03 PM EST Arthur Echevarriadaren VAZ LAB BLOOD ORDERABLES Performing Organization Address [facility]/ZIP Co de Phone Number [facility] [address] [place] [address], * HIV 1,2 antibody, p24 antigen with reflex to differentiation (04/28/2024 4:03 PM EST) HIV Combo AB/AG Negative Negative LAB CHEMISTRY METHOD 04/28/2024 10:12 PM EST [facility] Blood Venous blood specimen / Unknown Venipuncture / Unknown 04/28/2024 4:03 PM EST 04/28/2024 4:03 PM EST Narrative [facility] - 04/28/2024 10:12 PM EST This assay is a 4th generation assay allowing for earlier detection of HIV infection by detecting the presence of the HIV-1 p24 antigen as well as the traditional antibodies to HIV type 1 (including group O) and type 2. ??Use of a 4th generation assay is the current CDC recommendation for HIV screening. Arthur Echevarriadaren VAZ LAB BLOOD ORDERABLES Performing Organization Address City/[facility]/ZIP Co de Phone Number [facility] [address] [place] [address], [place] [phone] * Hepatitis B surface antigen with reflex to confirmation (04/28/2024 4:03 PM EST) Pathologist [facility] Hepatitis B Surface Ag Negative Negative LAB CHEMISTRY METHOD 04/28/2024 9:43 PM EST [facility] Blood Venous blood specimen / Unknown Venipuncture / Unknown 04/28/2024 4:03 PM EST 04/28/2024 4:03 PM EST Narrative [facility] - 04/28/2024 9:43 PM EST Over the counter supplements containing high doses of biotin may interfere with this assay. ??If interference is suspected, patients shoud be retested after refraining from biotin supplements for 72 hours. Arthur VAZ LAB BLOOD ORDERABLES [facility] [address] [place] [address], [place] [phone] * Treponema pallidum antibody with reflex to RPR and particle agglutination (04/28/2024 4:03 PM EST) Pathologist [facility] T. Pallidum Antibodies Negative Negative LAB CHEMISTRY METHOD 04/28/2024 9:45 PM EST [facility] Blood Venous blood specimen / Unknown Venipuncture / Unknown 04/28/2024 4:03 PM EST 04/28/2024 4:03 PM EST Arthur Sampson [facility] LAB BLOOD ORDERABLES Performing Organization Address City/[facility]/ZIP Co de Phone Number [facility] [address] [place] [address], [place] [phone] * GTT gestational 1 hour (04/28/2024 4:03 PM EST) Glucose, 1 HR Gestational 74 See Comment mg/dL LAB CHEMISTRY METHOD 04/28/2024 7:18 PM EST [facility] Blood Venous blood specimen / Unknown Venipuncture / Unknown 04/28/2024 4:03 PM EST 04/28/2024 4:03 PM EST Narrative [facility] - 04/28/2024 7:18 PM EST Gestational Diabetes Challenge Reference Range: 1 hour Glucose <140 mg/dL Arthur VAZ LAB BLOOD ORDERABLES [facility] [address] [place] [address], * Drug abuse screen expanded with reflex confirmation, urine (04/28/2024 4:03 PM EST) [facility] Amphetamine Screen, Ur Negative Negative LAB CHEMISTRY METHOD 04/28/2024 9:28 PM [facility] Comment:Certain OTC medicati ons containing ephedrine, phenylephrine, pseudoephedrine and phenylpropanolamine can cause false positive results. Barbiturate Screen, Ur Negative Negative LAB CHEMISTRY METHOD 04/28/2024 9:28 PM [facility] Benzodiazepine Screen, Ur Negative Negative LAB CHEMISTRY METHOD 04/28/2024 9:28 PM [facility] Cocaine Screen, Ur Negative Negative LAB CHEMISTRY METHOD 04/28/2024 9:28 PM [facility] Opiate Screen, Ur Negative Negative LAB CHEMISTRY METHOD 04/28/2024 9:28 PM [facility] Cannabinoid (THC) Screen, Ur Negative Negative LAB CHEMISTRY METHOD 04/28/2024 9:28 PM [facility] Comment:Specimens from patie nts taking pantoprazole sodium (Protonix) have been shown to produce false positive results. Fentanyl, Ur Negative Negative LAB CHEMISTRY METHOD 04/28/2024 9:28 PM [facility] Oxycodone Screen, Ur Negative Negative LAB CHEMISTRY METHOD 04/28/2024 9:28 PM [facility] Urine Urine specimen obtained by clean catch procedure / Unknown Non-blood Collection / Unknown 04/28/2024 4:03 PM EST 04/28/2024 4:[address] [facility] - 04/28/2024 9:28 PM EST Assay cutoffs: Amphetamines ? 1000 ng/mL Barbiturates ?200 ng/mL Benzodiazepines ?? 200 ng/mL Cocaine ? 300 ng/mL Fentanyl ?1 ng/mL Opiates ? 300 ng/mL Oxycodone ? 100 ng/mL THC ?50 ng/mL Semi-quantitative assay for screening purposes only. Unconfirmed screening result should not be used for non-medical purposes. *POSITIVE RESULTS ARE AUTOMATICALLY SENT FOR ALTERNATE METHOD CONFIRMATION* Arthur Sampson [facility] LAB URINE ORDERABLES [facility] [address] [place] [address], * CBC auto differential (04/28/2024 4:03 PM EST) WBC 9.0 4.8 - 10.8 K/mcL LAB HEMETOLOGY METHOD 04/28/2024 5:52 PM EST [facility] RBC 4.50 3.80 - 4.80 M/[facility] LAB HEMETOLOGY METHOD 04/28/2024 5:52 PM EST [facility] Hemoglobin 12.5 11.5 - 16.0 g/dL LAB HEMETOLOGY METHOD 04/28/2024 5:52 PM EST [facility] Hematocrit 38.2 35.0 - 47.0 % LAB HEMETOLOGY METHOD 04/28/2024 5:52 PM [facility] MCV 85.3 79.0 - 98.0 FL LAB HEMETOLOGY METHOD 04/28/2024 5:52 PM EST [facility] MCH 27.9 27.0 - 32.0 pcg LAB HEMETOLOGY METHOD 04/28/2024 5:52 PM EST [facility] MCHC 32.7 32.0 - 37.0 g/dL LAB HEMETOLOGY METHOD 04/28/2024 5:52 PM [facility] RDW 13.9 11.0 - 15.0 % LAB HEMETOLOGY METHOD 04/28/2024 5:52 PM [facility] Platelets 314 130 - 400 K/mcL LAB HEMETOLOGY METHOD 04/28/2024 5:52 PM [facility] MPV 10.8 7.0 - 11.0 FL LAB HEMETOLOGY METHOD 04/28/2024 5:52 PM [facility] NRBC 0.0 <1.0 % LAB HEMETOLOGY METHOD 04/28/2024 5:52 PM [facility] NRBC Absolute 0.00 <0.10 K/mcL LAB HEMETOLOGY METHOD 04/28/2024 5:52 PM [facility] Neutrophils Relative 73.5 % LAB HEMETOLOGY METHOD 04/28/2024 5:52 PM [facility] Lymphocytes Relative 17.9 % LAB HEMETOLOGY METHOD 04/28/2024 5:52 PM [facility] Monocytes Relative 6.7 % LAB HEMETOLOGY METHOD 04/28/2024 5:52 PM [facility] Eosinophils Relative 0.8 % LAB HEMETOLOGY METHOD 04/28/2024 5:52 PM [facility] Basophils Relative 0.8 % LAB HEMETOLOGY METHOD 04/28/2024 5:52 PM [facility] Immature Granulocytes Relative 0.3 % LAB HEMETOLOGY METHOD 04/28/2024 5:52 PM [facility] Neutrophils Absolute 6.60 1.50 - 7.00 K/mcL LAB HEMETOLOGY METHOD 04/28/2024 5:52 PM [facility] Lymphocytes Absolute 1.61 1.00 - 5.00 K/mcL LAB HEMETOLOGY METHOD 04/28/2024 5:52 PM [facility] Monocytes Absolute 0.60 0.20 - 1.00 K/mcL LAB HEMETOLOGY METHOD 04/28/2024 5:52 PM [facility] Eosinophils Absolute 0.07 0.00 - 0.50 K/[facility] LAB HEMETOLOGY METHOD 04/28/2024 5:52 PM EST [facility] Basophils Absolute 0.07 0.00 - 0.20 K/[facility] LAB HEMETOLOGY METHOD 04/28/2024 5:52 PM EST [facility] Immature Granulocytes Absolute 0.03 0.00 - 0.03 K/[facility] LAB HEMETOLOGY METHOD 04/28/2024 5:52 PM EST [facility] Blood Venous blood specimen / Unknown Venipuncture / Unknown 04/28/2024 4:03 PM EST 04/28/2024 4:03 PM EST Arthur Sampson [facility] LAB BLOOD ORDERABLES Performing Organization Address City/[facility]/ZIP Co de Phone Number [facility] [address] [place] [address], [place] [phone] * Rubella antibody IgG (04/28/2024 4:03 PM EST) Rubella IgG Quant 24.3 >=10.0 I Unit/mL LAB CHEMISTRY METHOD 04/28/2024 9:42 PM EST [facility] Rubella IgG Antibody Interp Positive Positive LAB CHEMISTRY METHOD 04/28/2024 9:42 PM EST [facility] Blood Venous blood specimen / Unknown Venipuncture / Unknown 04/28/2024 4:03 PM EST 04/28/2024 4:03 PM EST Arthur Sampson [facility] LAB BLOOD ORDERABLES [facility] [address] [place] [address], [place] [phone] * Type and screen (04/28/2024 4:03 PM EST) ABO Group A 04/29/2024 10:20 AM EST [facility] Rh Type Positive 04/29/2024 10:20 AM EST [facility] Antibody Screen Negative 04/29/2024 10:20 AM EST [facility] Blood Venous blood specimen / Unknown Venipuncture / Unknown 04/28/2024 4:03 PM EST 04/28/2024 4:03 PM EST Arthur VAZ LAB BLOOD BANK TEST ORDERABLES Performing Organization Address City/[facility]/ZIP Co de Phone Number [facility] [address] [place] [address], * Varicella zoster antibody IgG (04/28/2024 4:03 PM EST) Varicella IgG Positive Positive LAB CHEMISTRY METHOD 04/29/2024 10:43 AM EST [facility] Varicella Zoster IgG 1.95 >=1.00 S/CO LAB CHEMISTRY METHOD 04/29/2024 10:43 AM EST [facility] Blood Venous blood specimen / Unknown Venipuncture / Unknown 04/28/2024 4:03 PM EST 04/28/2024 4:03 PM EST Narrative [facility] - 04/29/2024 10:43 AM EST Interpretation >= 1.00 S/CO is considered to be consistent with Immunity Arthur Sampson [facility] LAB BLOOD ORDERABLES [facility] [address] [place] [address], * HCG, quantitative (04/28/2024 4:03 PM EST) Only the most recent of4 resultswithin the time period is included. hCG Quant 30,582 mIU/mL LAB CHEMISTRY METHOD 04/28/2024 9:55 PM EST [facility] Blood Venous blood specimen / Unknown Venipuncture / Unknown 04/28/2024 4:03 PM EST 04/28/2024 4:03 PM EST Narrative [facility] - 04/28/2024 9:55 PM EST Quantitative HCG Reference Ranges Time after Conception ? MIU/ML 0.2-1 Week ? 5-50 1-2 ?? Weeks ? 50-500 2-3 ?? Weeks ?100-5,000 3-4 ?? Weeks ?500-10,000 4-5 ?? Weeks ?1,000-50,000 5-6 ?? Weeks ? 10,000-100,000 6-8 ?? Weeks ? 15,000-200,000 2-3 ?? Months ?10,000-100,000 2nd Trimester ?1,000-94,000 3rd Trimester ?2,500-90,000 Non- Females ?1-3 Adelina VAZ LAB BLOOD ORDERABLES [facility] ([facility]) [facility] [address] [place] [address], * Hemoglobin A1c (04/28/2024 4:03 PM EST) Hemoglobin A1C 5.4 <6.5 % LAB CHEMISTRY METHOD 04/28/2024 8:55 PM EST [facility] Mean Bld Glu Estim. 108 mg/dL LAB CHEMISTRY METHOD 04/28/2024 8:55 PM EST [facility] Blood Venous blood specimen / Unknown Venipuncture / Unknown 04/28/2024 4:03 PM EST 04/28/2024 4:03 PM EST Arthur Sampson [facility] LAB BLOOD ORDERABLES Performing Organization Address City/[facility]/ZIP Co de Phone Number [facility] [address] [place] [address], * Trichomonas vaginalis antigen (03/17/2024 11:59 AM EST) Trichomonas vaginalis Negative Negative 03/17/2024 7:26 PM EST [facility] Swab Vaginal structure / Unknown Non-blood Collection / Unknown 03/17/2024 11:59 AM EST 03/17/2024 12:00 PM EST Adelina Chisholm [facility] MICROBIOLOGY - G ENERAL ORDERABLES Performing Organization Address City/[facility]/ZIP Co de Phone Number [facility] [address] [place] [address], [place] [phone] * (ABNORMAL) Wet prep, genital (03/17/2024 11:59 AM EST) Clue Cells, Wet Prep Positive(A) Negative 03/17/2024 7:24 PM EST [facility] Yeast, Wet Prep Negative Negative 03/17/2024 7:24 PM EST [facility] Trichomonas, Wet Prep Indeterminate Negative 03/17/2024 7:24 PM EST [facility] Comment:Refer to Trichomonas antigen. Swab Vaginal structure / Unknown Non-blood Collection / Unknown 03/17/2024 11:59 AM EST 03/17/2024 12:00 PM EST Adelina Chisholm [facility] LAB MICROBIOLOGY - G ENERAL ORDERABLES Performing Organization Address [facility]/ZIP Co de Phone Number [facility] [address] [place] [address], [place] [phone] * Chlamydia trachomatis and Neisseria gonorrhoeae molecular study (03/17/2024 11:50 AM EST) [facility] Neisseria gonorrhoeae PCR Negative Negative LAB MOLECULAR DIAGNOSTICS METHOD 03/18/2024 10:21 AM EST [facility] Chlamydia trachomatis PCR Negative Negative LAB MOLECULAR DIAGNOSTICS METHOD 03/18/2024 10:21 AM EST [facility] Swab Vaginal structure / Unknown Non-blood Collection / Unknown 03/17/2024 11:50 AM EST 03/17/2024 11:51 AM EST [facility] MICROBIOLOGY - G ENERAL ORDERABLES Performing Organization Address [facility]/ZIP Co de Phone Number [facility] [address] [place] [address], [place] [phone] * (ABNORMAL) POC , urine NO CHARGE screening manually resulted (03/17/2024 10:44 AM EST) [facility] HCG, Ur POC Positive(A ) Negative POC hCG Int QC Pass? Yes Yes Urine Urine specimen obtained by clean catch procedure / Unknown 03/17/2024 10:44 AM EST Adelina Chisholm [facility] POINT OF CARE TEST E NTER/EDIT ORDERABLES * Cervical Cancer Screening: HPV (12/02/2021) [facility] Cervical Cancer Screening: HPV Abstracted, No Interpretation Historical Provider MD BINTA CHACON E * (ABNORMAL) Lipid panel (04/16/2021) [facility] LDL/HDL Ratio 7(A) 0 - 4 Triglycerides 139 0 - 150 mg/dL Cholesterol 229(A) 0 - 200 mg/dL HDL 35(A) 40 mg/dL LDL Cholesterol 167(A) 0 - 100 mg/dL Blood Venous blood specimen / Unknown Historical Provider LAB BLOOD ORDERAB LES from Last 3 Months or Most Recently Relevant to Health Maintenance Care Teams Petrophysicist Relationship Specialty Start Date End Date Yadi Asencio MD [address] [place] [address] PCP - General Internal Medicine 03/17/24
--- OUTSIDE RECORDS SUMMARY | 2024-05-09 17:46 | XMS_ITS | Encounter Summary ---
Author Organization [facility] Address [address] [place] [address] Care Team Providers Care Dialysis Technician Name Role Phone Ynes Doyle MD Primary Care Provider Adilene Kenny Primary Care Provider Jeremi Garsia MD Primary Care Provider Ynes Mckeon MD Primary Care Provider Unavailkhalif Asencio Ch MD Primary Care Provider [phone] Encounter Details Date Type Department Care Team Description 08/19/2016 Telephone [facility] [place] [address] [place], [place] [id number] Ynes Doyle MD Social History Tobacco Use Types Packs/Day Years [...] on filedocumented in this encounter Care Teams Dialysis Technician Relationship Specialty Start Date End Date Ynes Doyle MD PCP - General Internal Medicine 05/19/13 05/28/17 Adilene Cheatham PCP - General Internal Medicine 05/29/17 01/27/18 Jeremi Ace MD PCP - General Internal Medicine 01/28/18 08/22/18 Ynes Doyle MD PCP - General Internal Medicine 08/23/18 11/14/20 Shirlene Asencio MD [address] [place] [address] PCP - General Internal Medicine 11/15/20 documented as of this encounter
--- OUTSIDE RECORDS SUMMARY | 2024-05-09 17:46 | XMS_ITS | Encounter Summary ---
Author Organization [facility] Address [address] [place] [address] Care Team Providers Care Planning Feeder Name Role Phone Adilene Cheatham Primary Care Provider Jeremi Garsia MD Primary Care Provider Ynes Mckeon MD Primary Care Provider Swapna Asencio Ch MD Primary Care Provider [phone] Reason for Visit * Reason Comments E-prescribe Rx Request bb Encounter Details Date Type Department Care Team Description 06/01/2017 Refill OBGYN - [address] [address] Khushboo Cheung DO E-prescribe Rx Request (bb) Social History Tobacco Use Types Packs/Day Years [...] Telephone Encounter - Olga Puri R.N. - 06/02/2017 3:23 PM EST Letter sent. * Telephone Encounter - Regine Kohli - 06/02/2017 6:54 AM EST WHEN WAS THE PATIENTS LAST ANNUAL ANTISQUEAK FILLER EXAM? 09/30/16 pt saw ryan for vi Does patient have an upcoming appointment? No [...] until the end of the day? YES No billing information found for this encounter. documented in this encounter Plan of Treatment Not on file documented as of this encounter Visit Diagnoses Not on filedocumented in this encounter Care Teams Planning Feeder Relationship Specialty Start Date End Date Adilene Cheatham PCP - General Internal Medicine 05/29/17 01/27/18 Jeremi Ace MD PCP - General Internal Medicine 01/28/18 08/22/18 Ynes Doyle MD PCP - General Internal Medicine 08/23/18 11/14/20 Shirlene Asencio MD [address] [place] [address] PCP - General Internal Medicine 11/15/20 documented as of this encounter
--- OUTSIDE RECORDS SUMMARY | 2024-05-09 17:46 | XMS_ITS | Encounter Summary ---
Author Organization [facility] Address [address] [place] [address] Care Team Providers Care Cone Classifier Tender Name Role Phone Aneudy Evans Primary Care Provider Ynes Noriega MD Primary Care Provider Adilene Kenny Primary Care Provider Jeremi Garsia MD Primary Care Provider Ynes Mckeon MD Primary Care Provider Unavailkhalif Asencio Ch MD Primary Care Provider [phone] Encounter Details Date Type Department Care Team Description 02/06/2011 Refill OBGYN - [place] [address] [place] [address] Gail Walker MD Social History Tobacco Use Types Packs/Day [...] documented as of this encounter Visit Diagnoses Diagnosis Supervision of normal first Teen Other specified indication for care or intervention related to labor and delivery, unspecified as to episode of care documented in this encounter Care Teams Cone Classifier Tender Relationship Specialty Start Date End Date Aneudy Evans PCP - General 06/25/07 05/18/13 Ynes Doyle MD PCP - General Internal Medicine 05/19/13 05/28/17 Adilene Cheatham PCP - General Internal Medicine 05/29/17 01/27/18 Jeremi Ace MD PCP - General Internal Medicine 01/28/18 08/22/18 Ynes Doyle MD PCP - General Internal Medicine 08/23/18 11/14/20 Shirlene Asencio MD [address] [place] [address] PCP - General Internal Medicine 11/15/20 documented as of this encounter
--- OUTSIDE RECORDS SUMMARY | 2024-05-09 17:47 | XMS_ITS | Encounter Summary ---
Author Organization [facility] Address [address] [place] [address] Care Team Providers Care Aerial Sprayer Name Role Phone Yadi Asencio MD Primary Care Prov ider Reason for Referral * Imaging (Emergency) - Authorized Specialty Diagnoses / Procedures Referred By Pham t Referred To Contact Radiology Diagnoses Vaginal bleeding in , first trimester Procedures US OB Less 14 Wks Single or First Gestation US OB Less 14 Wks Single or First Gestation Josefina Khalil CNM [address] [place] [address] [facility] [address] [address] Referral ID Status Reason Start Date Expiration Date V isits Requested Visits Authorized [id number] Authorized 05/09/2024 05/09/2025 1 1 Reason for Visit * Imaging (Emergency) - Authorized Specialty Diagnoses / Procedures Referred By Pham mederos Referred To Contact Radiology Diagnoses Vaginal bleeding in , first trimester Procedures US OB Less 14 Wks Single or First Gestation US OB Less 14 Wks Single or First Gestation Josefina Khalil CNM [address] [place] [address] [facility] [address] [address] Referral ID Status Reason Start Date Expiration Date V isits Requested Visits Authorized [id number] Authorized 05/09/2024 05/09/2025 1 1 Encounter Details Date Type Department Care Team (Latest Contact Info) Description 05/09/2024 10:53 AM EST Hospital Encounter [facility] [place] [address] [place] [id number] Vaginal bleeding in , first trimester Social History Tobacco Use Types Packs/Day Years [...] Record ed Within the last 3 months, peter lee many times did you visit the emergency [...] for your loved ones. For example, child development associate teacher or elderly care for an older adult? [...] as of this encounter Plan of Treatment Upcoming Encounters Date Type Department Care Team (Late st Contact Info) Description 05/12/2024 1:00 PM EST Initial Obstetrics and Gynecology - [place] [address] [place] [address] Arthur Sampson, [facility] [address] [place] [address] 05/13/2024 9:00 AM EST Ancillary Procedure Maternal Medicine [address] [address] documented as of this encounter Procedures Procedure Name Priority Date/Time Associated Diagnosis Comments US OB LESS 14 WKS SINGLE OR FIRST GESTATION STAT 05/09/2024 11:34 AM EST Vaginal bleeding in , first trimester documented in this encounter Results * US OB Less 14 Wks Single or First Gestation (05/09/2024 11:34 AM EST) Anatomical Region Laterality Modality Body Ultrasound 05/09/2024 [...] Signed Date: 05/09/2024 12:45 ET Workstation ID: [id number] Transcribed By: Self Edit Transcribed Date: 05/09/2024 [...] Signed Date: 05/09/2024 12:45 ET Workstation ID: [id number] Transcribed By: Self Edit Transcribed Date: 05/09/2024 12:43 ET Josefina Jaramillo Simran CNM IMG OB US PROCEDURE S documented in this encounter Visit Diagnoses Diagnosis Vaginal bleeding in , first trimester documented in this encounter Additional Health Concerns Assessment Noted Time PHQ-9 Depression Total Score: 10 025 12:46 PM EST documented as of this encounter Care Teams Aerial Sprayer Relationship Specialty Start Date End Date Yadi Asencio MD [address] [place] [address] PCP - General Internal Medicine 03/17/24 documented as of this encounter
--- OUTSIDE RECORDS SUMMARY | 2024-05-09 17:47 | XMS_ITS | Encounter Summary ---
Author Organization [facility] Address [address] [place] [address] Phone Care Team Providers Care Accounting Manager Controller Name Role Phone Unavailable Primary Care Provider Unavailabl e Encounter Details Date Type Department Care Team (Late st Contact Info) Description 04/17/2009 Documentation [facility] [place] [address] [place] [address] Family Medicine, Physician [address] [place], [place] [phone] Social History Tobacco Use Types Packs/Day Years Used Date Smoking Tobacco: Never Assessed Comments Unknown Sex and Gender Information Value Date Recorded Sex Assigned at Not on file Legal Sex Female 6:27 PM EDT Gender Identity Not on file Sexual Orientation Not on file documented as of this encounter Plan of Treatment Not on file documented as of this encounter Visit Diagnoses Not on filedocumented in this encounter
--- OUTSIDE RECORDS SUMMARY | 2024-05-09 17:47 | XMS_ITS | Encounter Summary ---
Author Organization [facility] Address [address] [place] [address] Care Team Providers Care Maintenance Plumber Name Role Phone Yadi Asencio MD Primary Care Prov ider Reason for Referral * Imaging (Emergency) - Authorized Specialty Diagnoses / Procedures Referred By Contjose luis t Referred To Contact Radiology Diagnoses Vaginal bleeding in , first trimester Procedures US OB Less 14 Wks Single or First Gestation US OB Less 14 Wks Single or First Gestation Josefina Khalil CNM [address] [place] [address] [address] Referral ID Status Reason Start Date Expiration Date V isits Requested Visits Authorized [id number] Authorized 05/09/2024 05/09/2025 1 1 Encounter Details Date Type Department Care Team (Late st Contact Info) Description 05/09/2024 Telephone Obstetrics and Gynecology - [address] [address] Josefina Khalil CNM [address] [place] [address] Social History Tobacco Use Types Packs/Day Years [...] care for your loved ones. For example, early childhood services coordinator or elderly care for an older adult? [...] on file documented as of this encounter Progress Notes * Olga Puri RN - 05/09/2024 1:50 PM EST Left message to return call. My chart message also sent. * Olga Puri RN - 05/09/2024 9:49 AM EST U/s scheduled for Thursday05/09/24 @ 11:00 am. * Josefina Khalil CNM - 05/09/2024 7:06 AM EST Pt had IC yesterday and had bleeding and cramping that has continued today, cramping is worse and Tylenol and localized heat do not help. Blood type A+. Concerned because she had an SAB last summer at about this point in . Will order u/s for today for viability. documented in this encounter Plan of Treatment Upcoming Encounters Date Type Department Care Team (Late st Contact Info) Description 05/12/2024 1:00 PM EST Initial Obstetrics and Gynecology - [place] [address] [place] [phone] Arthur Sampson CNM [address] [place] [address] 05/13/2024 9:00 AM EST Ancillary Procedure Maternal Medicine [address] [address] documented as of this encounter Results * US OB Less [...] Signed Date: 05/09/2024 12:45 ET Workstation ID: [id number] Transcribed By: Self Edit Transcribed Date: 05/09/2024 [...] Signed Date: 05/09/2024 12:45 ET Workstation ID: [id number] Transcribed By: Self Edit Transcribed Date: 05/09/2024 12:43 ET Josefina Khalil CNM IMG OB US PROCEDURE S documented in this encounter Visit Diagnoses Diagnosis Vaginal bleeding in , first trimester- Primary Vaginal bleeding in , first trimester documented in this encounter Additional Health Concerns Assessment Noted Time PHQ-9 Depression Total Score: 10 025 12:46 PM EST documented as of this encounter Care Teams Maintenance Plumber Relationship Specialty Start Date End Date Yadi Asencio MD [address] [place] [address] PCP - General Internal Medicine 03/17/24 documented as of this encounter
--- OUTSIDE RECORDS SUMMARY | 2024-05-09 17:47 | XMS_ITS | Encounter Summary ---
Author Organization [facility] Address [address] [place] [address] Care Team Providers Care Immigration Inspector Name Role Phone Shirlene Asencio MD Primary Care Provider [phone] Encounter Details Date Type Department Care Team Description 11/29/2020 Pt. Non Urgent Medic al Question Adult Medicine - [address] [address] Griselda Lobo PA-C Social History Tobacco Use Types Packs/Day Years Used Date Smoking Tobacco: Never Smokeless Tobacco: Never Alcohol Use Standard Drinks/Week Comments Yes 0 (1 standard drink = 0.6 oz pur e alcohol) occ Sex Assigned at Date Recorded Not on file Job Start Date Occupation Industry Not on file Not on file Not on file COVID-19 Exposure Response Date Recorded In the last month, have you been in contact with someone who was confirmed or suspected to have Coronavirus / COVID-19? No / Unsure 11/16/2020 10:53 AM EDT documented as of this encounter Miscellaneous Notes * Telephone Encounter - Yadi Quinteros M.A. - 11/30/2020 9:08 AM EDTFrom: Chayo Sydnee To: Nataly Lobo Sent: 11/29/2020 10:50 PM EDT Subject: Lab results Between my 2 jobs and crazy life with kids I actually haven't started the trazadone yet, I haven't picked it up from the pharmacy and I'm just remembering now that this is the last day to do so. I'm not sure if those two prescriptions could be sent over again ? I've been able to stick to the fasting and no snacking after a certain time, I haven't seen a change yet tho documented in this encounter Plan of Treatment Not on file documented as of this encounter Visit Diagnoses Not on filedocumented in this encounter Care Teams Immigration Inspector Relationship Specialty Start Date End Date Shirlene Asencio MD [address] [place] [address] PCP - General Internal Medicine 11/15/20 documented as of this encounter
--- OUTSIDE RECORDS SUMMARY | 2024-05-09 17:47 | XMS_ITS | Encounter Summary ---
Author Organization [facility] Address [address] [place] [address] Care Team Providers Care Maintenance Shop Manager Name Role Phone Ynes Doyle MD Primary Care Provider Swapna Asencio Primary Care Provider [phone] Reason for Visit * Reason Onset Date Comments Letter 03/16/2020 Encounter Details Date Type Department Care Team Description 03/16/2020 Telephone Adult Medicine [address] [address] Ynes Doyle MD Letter Social History Tobacco Use Types Packs/Day Years [...] encounter Miscellaneous Notes * Telephone Encounter - Angle Diaz L.P.N. - 03/19/2020 1:38 PM EST Able to complete call,but mailbox is full UNable to leave msg * Telephone Encounter - Angle Diaz L.P.N. - 03/19/2020 11:53 AM EST Tried calling pt,phone busy We have no confirmation of negative covid test We need documentation * Telephone Encounter - Rodrigo Otoole - 03/16/2020 4:07 PM EST Letter requested for: Rtw negative covid Reason for letter: Rtw Specific notations needed in body of letter: Pt needs rtw letter pt was tested today and was advised she was covid negative pt needs rtw letter [phone] (H) Date needed for completion: [place] When completed: Will miner pick-call when completed: (Q) documented in this encounter Plan of Treatment Not on file documented as of this encounter Visit Diagnoses Not on filedocumented in this encounter Care Teams Maintenance Shop Manager Relationship Specialty Start Date End Date Ynes Doyle MD PCP - General Internal Medicine 08/23/18 11/14/20 Shirlene Asencio MD [address] [place] [address] PCP - General Internal Medicine 11/15/20 documented as of this encounter
--- OUTSIDE RECORDS SUMMARY | 2024-05-09 17:47 | XMS_ITS | Encounter Summary ---
Author Organization [facility] Address [address] [place] [address] Care Team Providers Care Warranty Coordinator Name Role Phone Yadi Asencio MD Primary Care Prov ider Reason for Referral * Imaging (Routine) - Pending Review Specialty Diagnoses / Procedures Referred By Pham mederos Referred To Contact Radiology Diagnoses Obesity complicating childbirth Encounter for supervision of normal first in first trimester Procedures US OB Less 14 Wks Nuchal Measurement Arthur Sampson CNM [address] [place] [address] TH [address] [facility] [address] [place] [address] Referral ID Status Reason Start Date Expiration Date V isits Requested Visits Authorized [id number] Pending Review 04/28/2024 04/28/2025 1 1 Reason for Visit * Reason Comments Nurse Visit OB w/u Encounter Details Date Type Department Care Team (Latest Contact Info) Description 04/28/2024 3:00 PM EST Clinical Support Obstetrics and Gynecology - [address] [phone] Encounter for supervision of normal first in first trimester (Primary Dx); Obesity complicating childbirth; History of delivery; care, subsequent in first trimester Social History Tobacco Use Types [...] care for your loved ones. For example, childhood development teacher or elderly care for an older [...] on file documented as of this encounter Last Filed Vital Signs Vital Sign Reading Time Taken Comments Blood Pressure - - Pulse - - Temperature - - Respiratory Rate - - Oxygen Saturation - - Inhaled Oxygen Concentration - - Weight 69.9 kg (154 lb) 04/28/2024 2:57 PM EST Height 152.4 cm (5') 04/28/2024 2:57 PM EST Body Mass Index 30.08 04/28/2024 2:57 PM EST documented in this encounter Progress Notes * Olga Puri RN - 04/28/2024 3:00 PM EST Chayo Randhawa is a 28 y.o. old [...] to the above questions, is this for temple reasons? No Do you know what your [...] nausea and/or vomiting, pain on urination, or vaginaldischarge or vaginal bleeding? No OB Infection History: [...] Randhawa has also been informed of the production weigher provider recommendation for first trimester nuchal lucency testing to be performed during her . Chayo Randhawa has also been made aware of the time sensitive nature for this testing to be completed. . The patient now has a gestational age of 9w6d. The patient has agreed that she does want nuchal lucency testing. Ethnicity Based Genetic Testing has been reviewed and the [employer] information sheet has been provided to the patient in their After Visit Summary. The patient was also advised that genetic testing may not be covered by all insurances. The patients states that they understand this information. The patient states that she has not had the genetic screening for Horizon 14 done in the past duringa previous . The patient has agreed that she does want genetic testing for Horizon 14 and Panorama The following Labs have been ordered: Obstetric Panel, HgA1c, Early Glucose Screen, HIV with verbalConsent, Hepatitis C, Varicella titer, Urine Culture, UDS, [...] Olga Puri RN 04/28/24 3:05 PM EST documented in this encounter Plan of Treatment Upcoming Encounters Date Type Department Care Team (Late st Contact Info) Description 05/12/2024 1:00 PM EST Initial Obstetrics and Gynecology - [place] [address] [place] [address] Arthur Sampson CNM [address] [place] [phone] 05/13/2024 9:00 AM EST Ancillary Procedure Maternal Medicine - [address] [address] Scheduled Orders Name Type Priority Associated Diagnoses Orde r Schedule Culture urine Microbiology Routine Obesity complicating childbirth Encounter for supervision of normal first in first trimester 1 Occurrences starting 04/28/2024 until 04/28/2025 OB Less 14 Wks Nuchal Measurement Imaging Routine Obesity complicating childbirth Encounter for supervision of normal first in first trimester Expected: 05/13/2024, Expires: 04/28/2025 documented as of this encounter Results * Treponema pallidum antibody with reflex to RPR and particle agglutination (04/28/2024 4:03 PM EST) T. Pallidum Antibodies Negative Negative LAB CHEMISTRY METHOD 04/28/2024 9:45 PM EST [facility] Blood Venous blood specimen / Unknown Venipuncture / Unknown 04/28/2024 4:03 PM EST 04/28/2024 4:03 PM EST Arthur Sampson CNM LAB BLOOD ORDERABLES [facility] [address] [place] [address], * Varicella zoster antibody IgG (04/28/2024 4:03 PM EST) Varicella IgG Positive Positive LAB CHEMISTRY METHOD 04/29/2024 10:43 AM EST [facility] Varicella Zoster IgG 1.95 >=1.00 S/CO LAB CHEMISTRY METHOD 04/29/2024 10:43 AM EST [facility] Blood Venous blood specimen / Unknown Venipuncture / Unknown 04/28/2024 4:03 PM EST 04/28/2024 4:03 PM EST [facility] - 04/29/2024 10:43 AM EST Interpretation >= 1.00 S/CO is considered to be consistent with Immunity Arthur VAZ LAB BLOOD ORDERABLES Performing Organization Address [facility]/ZIP Co de Phone Number [facility] [address] [place] [address], * Hepatitis B surface antigen with reflex to confirmation (04/28/2024 4:03 PM EST) Pathologist [facility] Hepatitis B Surface Ag Negative Negative LAB CHEMISTRY METHOD 04/28/2024 9:43 PM EST [facility] Blood Venous blood specimen / Unknown Venipuncture / Unknown 04/28/2024 4:03 PM EST 04/28/2024 4:03 PM EST [facility] - 04/28/2024 9:43 PM EST Over the counter supplements containing high doses of biotin may interfere with this assay. ??If interference is suspected, patients shoud be retested after refraining from biotin supplements for 72 hours. Arthur Sampson CNM LAB BLOOD ORDERABLES Performing Organization Address City/[facility]/ZIP Co de Phone Number [facility] [address] [place] [address], [place] [phone] * Hemoglobin A1c (04/28/2024 4:03 PM EST) [facility] Hemoglobin A1C 5.4 <6.5 % LAB CHEMISTRY METHOD 04/28/2024 8:55 PM EST [facility] Mean Bld Glu Estim. 108 mg/dL LAB CHEMISTRY METHOD 04/28/2024 8:55 PM EST [facility] Blood Venous blood specimen / Unknown Venipuncture / Unknown 04/28/2024 4:03 PM EST 04/28/2024 4:03 PM EST Arthur Sampson [facility] BLOOD ORDERABLES [facility] [address] [place] [address], * Rubella antibody IgG (04/28/2024 4:03 PM EST) [facility] Rubella IgG Quant 24.3 >=10.0 I Unit/mL LAB CHEMISTRY METHOD 04/28/2024 9:42 PM EST [facility] Rubella IgG Antibody Interp Positive Positive LAB CHEMISTRY METHOD 04/28/2024 9:42 PM EST [facility] Blood Venous blood specimen / Unknown Venipuncture / Unknown 04/28/2024 4:03 PM EST 04/28/2024 4:03 PM EST Arthur Sampson [facility] BLOOD ORDERABLES [facility] [address] [place] [address], [place] [phone] * HIV 1,2 antibody, p24 antigen with reflex to differentiation (04/28/2024 4:03 PM EST) [facility] HIV Combo AB/AG Negative Negative LAB CHEMISTRY METHOD 04/28/2024 10:12 PM EST [facility] Blood Venous blood specimen / Unknown Venipuncture / Unknown 04/28/2024 4:03 PM EST 04/28/2024 4:03 PM EST Narrative [facility] - 04/28/2024 10:12 PM EST This assay is a 4th generation assay allowing for earlier detection of HIV infection by detecting the presence of the HIV-1 p24 antigen as well as the traditional antibodies to HIV type 1 (including group O) and type 2. ??Use of a 4th generation assay is the current CDC recommendation for HIV screening. Arthur VAZ LAB BLOOD ORDERABLES Performing Organization Address City/[facility]/ZIP Co de Phone Number [facility] [address] [place] [address], * Hepatitis C antibody (04/28/2024 4:03 PM EST) [facility] Hepatitis C Antibody Negative Negative LAB CHEMISTRY METHOD 04/28/2024 10:12 PM EST [facility] Blood Venous blood specimen / Unknown Venipuncture / Unknown 04/28/2024 4:03 PM EST 04/28/2024 4:03 PM EST Arthur VAZ LAB BLOOD ORDERABLES Performing Organization Address [facility]/ZIP Co de Phone Number [facility] [address] [place] [address], [place] [phone] * Drug abuse screen expanded with reflex confirmation, urine (04/28/2024 4:03 PM EST) Amphetamine Screen, Ur Negative Negative LAB CHEMISTRY METHOD 04/28/2024 9:28 PM EST [facility] Comment:Certain OTC medicati ons containing ephedrine, phenylephrine, pseudoephedrine and phenylpropanolamine can cause false positive results. Barbiturate Screen, Ur Negative Negative LAB CHEMISTRY METHOD 04/28/2024 9:28 PM EST [facility] Benzodiazepine Screen, Ur Negative Negative LAB CHEMISTRY METHOD 04/28/2024 9:28 PM EST [facility] Cocaine Screen, Ur Negative Negative LAB CHEMISTRY METHOD 04/28/2024 9:28 PM EST [facility] Opiate Screen, Ur Negative Negative LAB CHEMISTRY METHOD 04/28/2024 9:28 PM EST [facility] Cannabinoid (THC) Screen, Ur Negative Negative LAB CHEMISTRY METHOD 04/28/2024 9:28 PM EST [facility] Comment:Specimens from patie nts taking pantoprazole sodium (Protonix) have been shown to produce false positive results. Fentanyl, Ur Negative Negative LAB CHEMISTRY METHOD 04/28/2024 9:28 PM EST [facility] Oxycodone Screen, Ur Negative Negative LAB CHEMISTRY METHOD 04/28/2024 9:28 PM EST [facility] Urine Urine specimen obtained by clean catch procedure / Unknown Non-blood Collection / Unknown 04/28/2024 4:03 PM EST 04/28/2024 4:03 PM EST [facility] - 04/28/2024 9:28 PM EST [...] SENT FOR ALTERNATE METHOD CONFIRMATION* Arthur Sampson CNM LAB URINE ORDERABLES [facility] [address] [place] [address], * Type and screen (04/28/2024 4:03 PM EST) ABO Group A 04/29/2024 10:20 AM EST [facility] Rh Type Positive 04/29/2024 10:20 AM EST [facility] Antibody Screen Negative 04/29/2024 10:20 AM EST [facility] Blood Venous blood specimen / Unknown Venipuncture / Unknown 04/28/2024 4:03 PM EST 04/28/2024 4:03 PM EST Arthur Sampson [facility] BLOOD BANK TEST ORDERABLES [facility] [address] [place] [address], documented in this encounter Visit Diagnoses Diagnosis Encounter for supervision of normal first in first trimester- Primary Obesity complicating childbirth History of delivery care, subsequent in first trimester documented in this encounter Historical Medications * This list may reflect changes made after this encounter. Medication Sig Dispensed Refills Start Date End Date vitamin ( Multivitamins) iron fum-folic acid 28-0.8 mg per tablet Take 1 tablet by mouth 1 (one) time each day. 01/13/2023 added in this encounter Orders Lab Orders Without Results Count Last Ordered D ate First Ordered Date MISCELLANEOUS LAB TEST 1 04/28/2024 documented in this encounter Additional Health Concerns Assessment Noted Time PHQ-9 Depression Total Score: 10 025 12:46 PM EST documented as of this encounter Care Teams Warranty Coordinator Relationship Specialty Start Date End Date Yadi Asencio MD [address] [place] [id number] PCP - General Internal Medicine 03/17/24 documented as of this encounter
--- OUTSIDE RECORDS SUMMARY | 2024-05-09 17:47 | XMS_ITS | Clinical Summary ---
Author Organization [facility] Address [address] [place] [address] Phone Care Team Providers Care Configuration Management Administrator Name Role Phone Unavailable Primary Care Provider Unavailabl e Immunizations Name Administration Dates Next Due DTaP 12/04/1998, 5,06/10/1994,04/08,02/04/1994 HPV, Quadrivalent 08/29/2008,04/28/2008,01/31/20 08 Hep B, ped/adol 09/10/1994,02/04/1994,1993 Hib (PRP-T) 03/10/1995, 5,04/08/1994,02/04 IPV 12/04/1998, 5,04/08/1994,02/04 Influenza, injectable, quadrivalent 03/31/2008 MMR 12/04/1998,12/08/1994 Meningococcal Conj (Menactra) MCV4P 09/19/2011,1 Td (adult) (Tenivac), 5 Lf t etanus toxoid, PF, adsorbed 12/07/2003 Tdap 05/21/2009 Varicella 01/31/2008,09/05/1997 Family History Relation Name Status Comments Father healthy Maternal Grandfather cancer Maternal Grandmother Alive hyperte nsion Mother healthy, hx of post- depression and had been on Prozac with good effect age: 39 Paternal Grandfather Alive Paternal Grandmother Alive Social History Tobacco Use Types Packs/Day Years Used Date Smoking Tobacco: Never Assessed Comments Unknown Sex and Gender Information Value Date Recorded Sex Assigned at Not on file Legal Sex Female 6:27 PM EDT Gender Identity Not on file Sexual Orientation Not on file Last Filed Vital Signs Vital Sign Reading Time Taken Comments Blood Pressure 118/70 11/09/2012 12:00 AM EDT Pulse 141 04/21/2012 12:00 AM EST Temperature 36.9 ??C (98.4 ??F) 10/23/2012 12:00 AM E DT Respiratory Rate - - Oxygen Saturation 97% 04/21/2012 12:00 AM EST Inhaled Oxygen Concentration - - Weight 79.6 kg (175 lb 6.4 oz) 11/09/2012 12:00 AM EDT Height 153.7 cm (5' 0.5 ) 11/09/2012 12:00 AM ED T Body Mass Index 33.69 11/09/2012 12:00 AM EDT Plan of Treatment Health Maintenance Due Date Last Done Comments DTaP,Tdap,and Td Vaccines (7 - Td or Tdap) 05/21/2019 05/21/2009, 12/07/2003, 12/04/1998, Additional history exists Influenza Vaccines (#1) 2023 03/31/2008 COVID-19 Vaccine ( season) 2023 Hepatitis B Vaccines Completed 09/10/1994, 02/04/1994, 1993 HIB Vaccines Completed 03/10/1995, 05/15, 04/08/1994, Additional history exists IPV Vaccines Completed 12/04/1998, 05/15, 04/08/1994, Additional history exists MMR Vaccines Completed 12/04/1998, 12/08/1994 Varicella Vaccines Completed 01/31/2008, 09/05/1997 HPV Vaccines Completed 08/29/2008, 04/13, 01/31/2008 Meningococcal Vaccine Completed 09/19/2011, 008 Hepatitis A Vaccines Aged Out No long er eligible based on patient's age to complete this topic Men B Vaccine Aged Out No longer elig ible based on patient's age to complete this topic Pneumococcal Vaccine Aged Out No long er eligible based on patient's age to complete this topic
--- OUTSIDE RECORDS SUMMARY | 2024-05-09 17:47 | XMS_ITS | Encounter Summary ---
Author Organization [facility] Address [address] [place] [address] Care Team Providers Care Detention Officer Name Role Phone Shirlene Asencio MD Primary Care Provider [phone] Reason for Visit * Reason Onset Date Comments TEST RESULTS 11/27/2020 Encounter Details Date Type Department Care Team Description 11/27/2020 Telephone Adult Medicine - [address] [address] Griselda Lobo PA-C TEST RESULTS Social History Tobacco Use Types Packs/Day Years [...] encounter Miscellaneous Notes * Telephone Encounter - Griselda Lobo PA-C - 11/27/2020 3:26 PM EDT Tried to call patient to discuss test results. Did not answer, left message on unidentified voicemail to call the office back and/or check their MyChart. If the pt calls back, please transfer to floor nurse or triage Please relay the following message: Chayo, I'm sorry I was not able to reach you by phone. Your labs look pretty good. You are not anemic. Your vitamin D is slightly low so I would recommendtaking a supplement [id number] at 9251-5183 units daily. This may help with your energy level. How is the trazodone going? As far as next steps for management of her weight loss, did you find that in the evenings you have difficulties with snacking or have you been able to stick pretty close to the intermittent fasting? You can message me back on here give the office a call when you can -Griselda Lobo PA-C documented in this encounter Plan of Treatment Not on file documented as of this encounter Visit Diagnoses Not on filedocumented in this encounter Care Teams Detention Officer Relationship Specialty Start Date End Date Shirlene Asencio MD [address] [place] [address] PCP - General Internal Medicine 11/15/20 documented as of this encounter
--- OUTSIDE RECORDS SUMMARY | 2024-05-09 17:47 | XMS_ITS | Encounter Summary ---
Author Organization [facility] Address [address] [place] [address] Phone Care Team Providers Care Support Representative Name Role Phone Unavailable Primary Care Provider Unavailabl e Encounter Details Date Type Department Care Team (Late st Contact Info) Description 05/21/2009 Documentation [facility] Family Medicine [address] [place] [address] Family Medicine, Physician [address] [place], [place] [address] Social History Tobacco Use Types Packs/Day Years [...]
--- OUTSIDE RECORDS SUMMARY | 2024-05-09 17:47 | XMS_ITS | Encounter Summary ---
Author Organization [facility] Address [address] [place] [address] Care Team Providers Care Wireless Sales Expert Name Role Phone Ynes Doyle MD Primary Care Provider Adilene Kenny Primary Care Provider Jeremi Garsia MD Primary Care Provider Ynes Mckeon MD Primary Care Provider Unavailkhalif Asencio Ch MD Primary Care Provider [phone] Encounter Details Date Type Department Care Team Description 02/05/2016 Laboratory Courier Report Medical Records [address] [place] [address] Filomena Stroud MD Social History Tobacco Use Types Packs/Day [...] on filedocumented in this encounter Care Teams Wireless Sales Expert Relationship Specialty Start Date End Date Ynes Doyle MD PCP - General Internal Medicine 05/19/13 05/28/17 Adilene Cheatham PCP - General Internal Medicine 05/29/17 01/27/18 Jeremi Ace MD PCP - General Internal Medicine 01/28/18 08/22/18 Ynes Doyle MD PCP - General Internal Medicine 08/23/18 11/14/20 Shirlene Asencio MD [address] [place] [address] PCP - General Internal Medicine 11/15/20 documented as of this encounter
--- OUTSIDE RECORDS SUMMARY | 2024-05-09 17:47 | XMS_ITS | Encounter Summary ---
Author Organization [facility] Address [address] [place] [address] Care Team Providers Care Atg Java Developer Name Role Phone Yadi Asencio MD Primary Care Prov ider Encounter Details Date Type Department Care Team (Late st Contact Info) Description 05/02/2024 Telephone Obstetrics and Gynecology - [address] [phone] Ally Weiss MA Social History Tobacco Use Types Packs/Day Years [...] for your loved ones. For example, child caregiver or elderly care for an older adult? [...] as of this encounter Progress Notes * Ally Weiss MA - 05/02/2024 9:10 AM EST I spoke to patient and let her know These labs are within normal limits and will be reviewed at her upcoming OB appointment. Arthur Sampson CNM * Ally Weiss MA - 05/02/2024 9:09 AM EST ----- Message from A ADRIÁN Sampson sent at 04/30/2024 1:37 PM EST ----- These labs are within normal limits and will be reviewed at her upcoming OB appointment. Arthur Sampson CNM documented in this encounter Plan of Treatment Upcoming Encounters Date Type Department Care Team (Late st Contact Info) Description 05/12/2024 1:00 PM EST Initial Obstetrics and Gynecology - [place] [address] [place] [address] Arthur Sampson CNM [address] [place] [address] 05/13/2024 9:00 AM EST Ancillary Procedure Maternal Medicine - [address] [phone] documented as of this encounter Visit Diagnoses Not on filedocumented in this encounter Additional Health Concerns Assessment Noted Time PHQ-9 Depression Total Score: 10 025 12:46 PM EST documented as of this encounter Care Teams Atg Java Developer Relationship Specialty Start Date End Date Yadi Asencio MD [address] [place] [address] PCP - General Internal Medicine 03/17/24 documented as of this encounter
--- OUTSIDE RECORDS SUMMARY | 2024-05-09 17:47 | XMS_ITS | Encounter Summary ---
Author Organization [facility] Address [address] [place] [address] Phone Care Team Providers Care City Planner Name Role Phone Unavailable Primary Care Provider Unavailabl e Encounter Details Date Type Department Care Team (Late st Contact Info) Description 08/30/2017 Conversion [facility]counter [facility] [address] [address] Social History Tobacco Use Types Packs/Day Years [...]
--- OUTSIDE RECORDS SUMMARY | 2024-05-09 17:47 | XMS_ITS | Encounter Summary ---
Author Organization [facility] Address [address] [place] [address] Care Team Providers Care Transfer Man Name Role Phone Yadi Asencio MD Primary Care Prov ider Reason for Visit * Reason Onset Date Comments Results 05/05/2024 [place] Encounter Details Date Type Department Care Team ([facility] st Contact Info) Description 05/05/2024 Telephone Obstetrics and Gynecology - [address] [address] Olga Puri, RN Results ([place]) Social History Tobacco Use Types Packs/Day Years [...] for your loved ones. For example, child study team director or elderly care for an older adult? [...] of this encounter Progress Notes * Olga Puri, NETO - 05/05/2024 10:43 AM EST Left message to return call. Panorama results show low risk. Did she want to know sex of baby? As this was not resulted, but can be. documented in this encounter Plan of Treatment Upcoming Encounters Date Type Department Care Team (Late st Contact Info) Description 05/12/2024 1:00 PM EST Initial Obstetrics and Gynecology - [place] [address] [place] [address] Arthur Sampson CN [address] [place] [address] 05/13/2024 9:00 AM EST Ancillary Procedure Maternal Medicine - [address] [address] documented as of this encounter Visit Diagnoses Diagnosis care, subsequent in first trimester- Primary documented in this encounter Additional Health Concerns Assessment Noted Time PHQ-9 Depression Total Score: 10 025 12:46 PM EST documented as of this encounter Care Teams Transfer Man Relationship Specialty Start Date End Date Yadi Asencio MD [address] [place] [address] PCP - General Internal Medicine 03/17/24 documented as of this encounter
== END 2024-05-09 14:01 | disposition home or self-care (01) ==
PROVIDERS: PCP Internal Medicine; Visit Provider Physician Assistant Surgical
DX: E66.3 Overweight (principal); Z68.28 Body mass index [BMI] 28.0-28.9, adult; Z90.3 Acquired absence of stomach [part of]; Z98.84 Bariatric surgery status
CPT/HCPCS: 99214; G2211

== ENCOUNTER → 2024-05-09 13:10 | Outpatient (BNVA) | payer OTHER, SELFPAY | PROVIDERS: PCP Internal Medicine; Visit Provider Physician Assistant Surgical | DX: E66.3 Overweight (principal); Z71.3 Dietary counseling and surveillance; Z98.84 Bariatric surgery status; Z68.28 Body mass index [BMI] 28.0-28.9, adult | CPT/HCPCS: 99212 ==

== ENCOUNTER 2024-07-28 13:12 | Outpatient (AMB) | payer BC, SELFPAY ==
--- NOTE | 2024-07-28 12:36 | MHC.OFFVISWM ---
VS Expanded 07/28/24 12:40 Height 5 ft Weight 153 lb BMI 29.9 Intake Visit Reasons: TV PO LSG 05/06/22 Allergies iron Allergy (Intermediate, Verified 05/09/24 13:18) Hives Medication List - Last Reconciled 07/28/24 by WARREN Esposito No Known Home Meds HPI Comments Details: This?is a?28?yo female who is s/p LSG 05/06/2022. Presents for 2 year 3 month post op visit. Weight at last visit on 05/09/2024 was 144.8 pounds; weight today is 153 pounds, representing a 8.2 pound weight gain with a BMI today of 29.9.? Pt ended up having a loss at 13 weeks. Was her 3rd loss, going to see a specialist. Reports frequent heartburn, this happens sometimes even with water or protein shake. Present meal plan includes: 60 gram per day CorePower 42g shake over the course of the morning 7pm- 3oz and 3oz BariatricPal vitamin Exercise routine includes: 30 minutes cardio walking on treadmill with incline, core work 20K steps per day prior to [facility] Medical History (Updated 04/09/23 @ 11:42 by Mihaela Valentino PA-C) BMI 36.0-36.9,adult GERD (gastroesophageal reflux disease) Low back pain History of anxiety Personal history of asthma Back pain Hyperlipidemia Depression Morbid obesity Surgical History Hx of laparoscopic partial gastrectomy Hx of tonsillectomy Social History Household Members: Children Housing: House Are you a primary manager intensive care to a significant other at home: Yes (children ages 4,7,11) Do you presently have visiting nurse or other home services: No Alcohol intake: never Patient Tobacco Use Status: Never used Tobacco service: No Current occupational status: employed Telehealth Telehealth Telehealth Platform: Telephone Location of provider rendering services: practice address Location of patient: address on file Patient Identification confirmed using: Name, : Yes Telehealth method: voice only Patient verbally consented to treatment: Yes Patient verbally consented to billing insurance company: Yes Patient informed of any privacy concerns related to visit: Yes Minutes spent on Phone/Video with Pt.: 16 Assessment & Plan Assessment & Plan (1) Overweight: Code(s): E66.3 - Overweight Category: Medical (2) S/P laparoscopic sleeve gastrectomy: Code(s): Z98.84 - Bariatric surgery status Category: Surgical Plan Pt feels that she can resume a meal plan of protein shakes with one meal per day. She sometimes gets pain with portion sizes that are too large. We discussed keeping portion sizes appropriate. Regarding the reflux we can have UGI done at next visit if symptoms do not improve with meal plan changes and weight loss. Can use Tums or Pepcid OTC in the meantime PRN. Labs ordered. RTC 2-3 months.
[2024-07-28 12:40] VITALS: BMI 29.9
--- OUTSIDE RECORDS SUMMARY | 2024-07-28 16:10 | XMS_ITS | Encounter Summary ---
Author Organization [facility] Address [address] [place] [address] Phone Care Team Providers Care Rehabilitation Teacher Name Role Phone Unavailable Primary Care Provider Unavailabl e Encounter Details Date Type Department Care Team (Late st Contact Info) Description 04/17/2009 Documentation [facility] Family Medicine [address] [place] [address] Family Medicine, Physician [address] [place], [place] [address] Social History Tobacco Use Types Packs/Day Years [...]
--- OUTSIDE RECORDS SUMMARY | 2024-07-28 16:10 | XMS_ITS | Clinical Summary ---
Author Organization [facility] [address] [facility] Address [address] [place] [address] Phone Care Team Providers Care Audiology Assistant Name Role Phone Yadi Asencio MD Primary Care Prov ider Allergies Active Allergy Reactions Criticality Noted Date Comments Iron Hives High 11/03/2018 Medications valACYclovir (VALTREX) 500 mg tablet Take 1 tablet (500 mg total) by mouth. 11/10/2018 Active sertraline (ZOLOFT) 50 mg tablet TAKE HALF TABLET DAILY X FOR 1 WEEK, THEN 1 TAB PER DAY Active progesterone (Endometrin) 100 mg vaginal insert Insert 1 tablet (100 mg total) into the vagina 2 (two) times a day. 90 tablet 3 03/17/2024 03/17/20 25 Active triamcinolone (KENALOG) 0.025 % ointment Apply 3-4x/day to affected area 15 g 1 03/17/2024 Active progesterone (PROMETRIUM) 100 mg capsule Insert 1 capsule (100 mg total) into the vagina 2 (two) times a day. 90 capsule 3 03/17/2024 03/17/20 25 Active vitamin ( Multivitamins) iron fum-folic acid 28-0.8 mg per tablet Take 1 tablet by mouth 1 (one) time each day. 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 Sleep consultation recommended. Depression 12/08/2013 Overview (04/27/2024): Suicide attempt, hosp 04/23 Strabismus 12/08/2013 Resolved Problems Problem Noted Date Diagnosed Date Resolved Date History of delivery 04/28/2024 05/10/2024 Overview (04/28/2024): 1st -delivered at 35.3 weeks History of hemorrhage 04/28/2024 05/10/2024 High-risk 04/27/2024 04/28/19 care, subsequent pr egnancy in first trimester 04/27/2024 05/10/2024 Overview (05/05/2024): 1. [facility] site: [facility]: [address] [place] [address] ([phone]) 2. Delivery site: [facility] 3. Mobile Mommas: No 4. [...] 9. Hospital Course: Obesity complicating childbirth 04/27/2024 05/10/2024 Overview (04/28/2024): BMI-30.08 HgbA1C and 1 hour [...] BMI of 50 by 28wks transfer to [facility] DVT prophylaxis- Lovenox if CS and BMI >35 Encounters Date Type Department Care Team Description 05/12/2024 1:00 PM EST Office Visit Obstetrics and Gynecology - [address] [phone] Arthur Sampson CNM History of recurrent miscarriages (Primary Dx) 05/10/2024 Telephone Obstetrics and Gynecology - [address] [address] Josefina Khalil CNM Miscarriage 05/09/2024 10:53 AM EST - 05/09/2024 11:59 PM EST Hospital Encounter Ultrasound - [facility] [address] [place] [address] Vaginal bleeding in , first trimester Discharge Disposition: Home or Self Care 05/09/2024 Telephone Obstetrics and Gynecology - [address] [phone] Josefina Khalil CNM 05/05/2024 Telephone Obstetrics and Gynecology - [address] [phone] Olga Puri, RN Results ([place]) 05/02/2024 Telephone Obstetrics and Gynecology - [address] [phone] Ally Weiss MA from Last 3 Months Immunizations Name Administration Dates Next Due DTaP (Infanrix) 6wks to less than 7yo ,03/10/1995,06/10/1994,04/08,02/04/1994 DTaP, IPV, Hib, Hepatitis B Combined (Vaxelis) 6wks to less than 5yo 12/04/1998,06/10/1994,04/08/1994,02/04 [id number] (Pentacel) 2mo to less than 5yo 03/10/1995,06/10/1994,04/08/1994,02/04 [...] BILATERAL MYRINGOTOMY AND TUBES age 5 PROCEDURE: CT TONSILLECTOMY & ADENOIDECTOMY <AGE 12 DILATION AND CURETTAGE OF UTERUS BARIATRIC SURGERY 05/09/2022 Medical History Medical History Date Comments Trichomonas contact, treated 11/2010, 12/2010 DX: Trichomonas contact, treated hydronephrosis 03/18/2011 DX: hy dronephrosis Depression 12/08/2013 DX:Depression Strabismus 12/08/2013 DX:Strabismus Anxiety 12/10/2022 Asthma Recurrent loss, 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 Family History Medical History Relation Name Comments Hypertension Father Cancer Maternal Grandfather Isaias Gaurav Lung cancer Maternal Grandfather Isaias Gaurav Cancer Maternal Grandmother Tayla Gaurav Hypertension Maternal Grandmother Tayla Gaurav Lung cancer Maternal Grandmother Tayla Gaurav Hypertension Mother Radha Francodi Miscarriages / Stillbirths Mother Radha Francodi pre-diabetes Mother Radha Gaurav Diabetes Paternal Grandfather Bg Randhawa Parkinsonism Paternal Grandmother Relation Name Status Comments Brother 1 Alive Brother 2 Alive Brother 3 Alive Brother 4 Alive Daughter Alive Father Alive Maternal Grandfather Isaias Gaurav Maternal Grandmother Tayla Gaurav Mother Radha Nolasco Alive Paternal Grandfather Bg Randhawa Alive Paternal Grandmother Alive Son Alive Social History Tobacco Use Types Packs/Day Years Used Date Smoking Tobacco: Every Day Cigarettes Started: 10/20/2022 Smokeless Tobacco: Current Tobacco Cessation:Ready to Q uit: Not Asked Comments:Vape Alcohol Use Standard Drinks/Week Comments Not Currently [...] care for your loved ones. For example, children teacher or elderly care for an older [...] What is your living situation? 0 04/21/2024 Comments No Sex and Gender Information Value Date Recorded Sex Assigned at Not on file Legal Sex Female 3:22 AM EST Gender Identity Not on file Sexual Orientation Not on file Occupation Industry Job Start Date Job End Date [employer] Not on file Not on file Not on file Obstetrics History Para Term AB IAB SAB Ectopic Multiple Livin g Live Births 12 3 2 1 9 9 3 3 Date Outcome GA Total Labor Labor/2nd/3rd Weight Sex Type Anes PTL Rhina A1 A5 Name Clin 1 SAB 2010 35w 3d 9h 02m/ 2163 g (76.3 oz) M Vag-Sp ont Epidur al Livin g 8 8 Dougl as Catarino Myers dhara Turcios CN Delivery Location:[facility] Comments:GBS neg, loos e cord around foot x 1 2014 SAB Comple te 2014 Term 2637 g (93 oz) M Vag-Sp ont Livin g 8 9 M. ADRIÁN Viveros Delivery Location:[facility] 2017 [facility] Comple te 2017 Term F Vag-Sp ont Livin g Complications:None,PPH (post hemorrhage) SAB SAB 2022 SAB SAB 2022 SAB SAB 2023 SAB 2023 SAB 2024 SAB Incomp lete S Last Filed Vital Signs Vital Sign Reading Time Taken Comments Blood Pressure 117/73 05/12/2024 1:08 PM EST Pulse 72 05/12/2024 1:08 PM EST Temperature - - Respiratory Rate 14 05/12/2024 1:08 PM EST Oxygen Saturation - - Inhaled Oxygen Concentration - - Weight 69.2 kg (152 lb 9.6 oz) 05/12/2024 1:08 P M EST Height 158 cm (5' 2.21 ) 05/12/2024 1:08 PM EST Body Mass Index 27.73 05/12/2024 1:08 PM EST Plan of Treatment Health Maintenance Due Date Last Done Comments Pneumococcal Vaccine: Pediatrics (0 to 5 Years) and At-Risk Patients (6 to 64 Years) (1 of 2 - PCV) 2012 COVID-19 Vaccine (2 - season) 2023 09/14/2020 Influenza Vaccine (Season Ended) 2024 02/03/2019, 02/15/2018, 05/05/2017, Additional history exists Depression Screening [...] Completed 12/04/1998, 11/12, 03/10/1995, Additional history exists MMR Vaccines Completed 12/04/1998, 12/08/1994 Varicella Vaccines Completed 01/31/2008, 09/05/1997 HPV Vaccines Completed 08/29/2008, 04/13, 01/31/2008 Meningococcal ACWY Vaccine Completed 09/19/2011, HIV Screening Completed 04/28/2024, 2019 Hepatitis C Screening Completed 04/28/2024, 020 Hepatitis A Vaccines Aged Out No long er eligible based on patient's age to complete this topic Meningococcal B Vaccine Aged Out No l onger eligible based on patient's age to complete [...] AMANDA Routine 05/06/2024 3: 50 PM EST HEPATITIS C ANTIBODY Routine 04/28/2024 4:03 PM EST Obesity complicating childbirth Encounter for supervision of normal first in first trimester HIV 1, 2 ANTIBODY, P24 ANTIGEN WITH REFLEX TO DIFFERENTIATION Routine 04/28/2024 4:03 PM EST Obesity complicating childbirth Encounter for supervision of normal first in first trimester HM HPV Routine 12/02/2021 LIPID PANEL Routine [...] Signed Date: 05/09/2024 12:45 ET Workstation ID: [id number] Transcribed By: Self Edit Transcribed Date: 05/09/2024 [...] Signed Date: 05/09/2024 12:45 ET Workstation ID: [id number] Transcribed By: Self Edit Transcribed Date: 05/09/2024 12:43 ET Josefina Khalil CNM IMG OB US PROCEDURES Final Result * Horizon 14 (05/06/2024 3:50 PM EST) Blood Venous blood specimen / Unknown Arthur Sampson CNM LAB BLOOD ORDERABLES Final Res ult * Hepatitis C antibody (04/28/2024 4:03 PM EST) Pathologist [facility] Hepatitis C Antibody Negative Negative LAB CHEMISTRY METHOD 04/28/2024 10:12 PM EST [facility] Blood Venous blood specimen / Unknown Venipuncture / Unknown 04/28/2024 4:03 PM EST 04/28/2024 4:03 PM EST Arthur VAZ LAB BLOOD ORDERABLES Final Res ult [facility] [address] [place] [address], * HIV 1,2 antibody, p24 antigen with reflex to differentiation (04/28/2024 4:03 PM EST) HIV Combo AB/AG Negative Negative LAB CHEMISTRY METHOD 04/28/2024 10:12 PM EST [facility] Blood Venous blood specimen / Unknown Venipuncture / Unknown 04/28/2024 4:03 PM EST 04/28/2024 4:03 PM EST [facility]ative [facility] - 04/28/2024 10:12 PM EST This [...] HIV screening. Arthur VAZ LAB BLOOD ORDERABLES Final Res ult [facility] [address] [place] [address], [place] [phone] * Cervical Cancer Screening: HPV (12/02/2021) [facility] Cervical Cancer Screening: HPV Abstracted, No Interpretation Historical Provider HEALTH MAINTENANCE Final Result * (ABNORMAL) Lipid panel (04/16/2021) [facility] LDL/HDL Ratio 7(A) 0 - 4 Triglycerides 139 0 - 150 mg/dL Cholesterol 229(A) 0 - 200 mg/dL HDL 35(A) >=40 mg/dL LDL Cholesterol 167(A) 0 - 100 mg/dL Blood Venous blood specimen / Unknown Historical Provider LAB BLOOD ORDERABLES Tiki l Result from Last 3 Months or Most Recently Relevant to Health Maintenance Insurance [facility] [employer] [facility] Care Teams Audiology Assistant Relationship Specialty Start Date End Date Yadi Asencio MD [address] [place] [address] PCP - General Internal Medicine 03/17/24
--- OUTSIDE RECORDS SUMMARY | 2024-07-28 16:10 | XMS_ITS | Clinical Summary ---
Author Organization [facility] Address [address] [place] [address] Phone Care Team Providers Care Kettle Cook Name Role Phone Unavailable Primary Care Provider Unavailabl e Immunizations Immunization Administration Dates Next Due DTaP 12/04/1998, 5,06/10/1994,04/08,02/04/1994 [...]
--- OUTSIDE RECORDS SUMMARY | 2024-07-28 16:10 | XMS_ITS | Encounter Summary ---
Author Organization [facility] Address [address] [place] [address] Phone Care Team Providers Care Bottom Bleacher Name Role Phone Unavailable Primary Care Provider Unavailabl e Encounter Details Date Type Department Care Team (Late st Contact Info) Description 08/30/2017 Conversion [facility]counter [facility] [address] [address] Social History Tobacco Use Types Packs/Day Years [...]
--- OUTSIDE RECORDS SUMMARY | 2024-07-28 16:10 | XMS_ITS | Encounter Summary ---
Author Organization [facility] Address [address] [place] [address] Phone Care Team Providers Care Handle Rounder Operator Name Role Phone Unavailable Primary Care Provider Unavailabl e Encounter Details Date Type Department Care Team (Late st Contact Info) Description 05/21/2009 Documentation [facility] Family Medicine [address] [place] [address] Family Medicine, Physician [address] [place], [place] [address] Social History Tobacco Use Types Packs/Day Years [...]
== END 2024-07-28 13:12 | disposition home or self-care (01) ==
LOC: HO.HBS 13:12
PROVIDERS: PCP Internal Medicine; Visit Provider Physician Assistant Surgical
DX: E66.3 Overweight (principal); Z68.29 Body mass index [BMI] 29.0-29.9, adult; Z90.3 Acquired absence of stomach [part of]; Z98.84 Bariatric surgery status
CPT/HCPCS: 98967

== ENCOUNTER → 2024-07-28 13:12 | Outpatient (BNVA) | payer BC, SELFPAY | PROVIDERS: PCP Internal Medicine; Visit Provider Physician Assistant Surgical | DX: E66.3 Overweight (principal); Z98.84 Bariatric surgery status; Z68.29 Body mass index [BMI] 29.0-29.9, adult | CPT/HCPCS: 98967 ==

== ENCOUNTER 2024-10-27 10:02 | Outpatient (REF) | payer BC, SELFPAY ==
[2024-10-27 10:21] LABS: MANUAL DIFF FLAG NO
--- OUTSIDE RECORDS SUMMARY | 2024-10-27 10:29 | XMS_ITS | Encounter Summary ---
Author Organization [facility] Address [address] [place] [address] Phone Care Team Providers Care Clipper Operator Name Role Phone Unavailable Primary Care Provider Unavailabl e Encounter Details Date Type Department Care Team (Late st Contact Info) Description 04/17/2009 Documentation [facility] Family Medicine [address] [place] [address] Family Medicine, Physician [address] [place] [place], [place] [address] Social History Tobacco Use Types Packs/Day Years [...]
--- OUTSIDE RECORDS SUMMARY | 2024-10-27 10:29 | XMS_ITS | Clinical Summary ---
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 [facility] site: [facility]: [address] [place] [id number] ([phone]) 2. Delivery site: [facility] 3. Mobile Mommas: No 4. Dating criteria: [...] BMI of 50 by 28wks transfer to [facility] DVT prophylaxis- Lovenox if CS and BMI >35 Immunizations Name Administration Dates Next Due DTaP (Infanrix) 6wks to less than 7yo ,03/10/1995,06/10/1994,04/08,02/04/1994 DTaP, IPV, Hib, Hepatitis B Combined (Vaxelis) 6wks to less than 5yo 12/04/1998,06/10/1994,04/08/1994,02/04 [id number] (Pentacel) 2mo to less than 5yo 03/10/1995,06/10/1994,04/08/1994,02/04 [...] BILATERAL MYRINGOTOMY AND TUBES age 5 PROCEDURE: RI TONSILLECTOMY & ADENOIDECTOMY <AGE 10 DILATION AND CURETTAGE OF UTERUS BARIATRIC SURGERY 05/09/2022 Medical History Medical History Date Comments Trichomonas contact, treated 11/2010, 12/2010 DX: Trichomonas contact, treated hydronephrosis 03/18/2011 DX: hy dronephrosis Depression 12/08/2013 DX:Depression Strabismus 12/08/2013 DX:Strabismus Anxiety 12/10/2022 Asthma Recurrent loss, 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 Family History Medical History Relation Name Comments Hypertension Father Cancer Maternal Grandfather Isaias Nolasco Lung cancer Maternal Grandfather Isaias Nolasco Cancer Maternal Grandmother Tayla Nolasco Hypertension Maternal Grandmother Tayla Nolasco Lung cancer Maternal Grandmother Tayla Nolasco Hypertension Mother Radha Nolasco Miscarriages / Stillbirths Mother Radha Nolasco pre-diabetes Mother Radha Nolasco Diabetes Paternal Grandfather Bg Randhawa Parkinsonism Paternal Grandmother Relation Name Status Comments Brother 1 Alive Brother 2 Alive Brother 3 Alive Brother 4 Alive Daughter Alive Father Alive Maternal Grandfather Isaias Nolasco Maternal Grandmother Tayla Nolasco Mother Radha Nolasco Alive Paternal Grandfather Bg [...] care for your loved ones. For example, childrens club attendant or elderly care for an older adult? 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 ADRIÁN Viveros Delivery Location:[facility] te 2017 Term F Vag-Sp ont Livin g Complications:None,PPH (post hemorrhage) SAB 2022 SAB SAB 2022 SAB SAB [...] 5 Years) and At-Risk Patients (6 to 49 Years) (1 of 2 - PCV) 2012 COVID-19 Vaccine (2 - season) 2023 09/14/2020 Influenza Vaccine (#1) 2024 9, 02/15/2018, 05/05/2017, Additional history exists Depression [...] Procedure Name Priority Date/Time Associated Diagnosis Comments HEPATITIS C ANTIBODY Routine 04/28/2024 4:03 PM [...] Recently Relevant to Health Maintenance Results * Hepatitis C antibody (04/28/2024 4:03 PM EST) [facility] Hepatitis C Antibody Negative Negative LAB CHEMISTRY METHOD 04/28/2024 10:12 PM EST [facility] Blood Venous blood specimen / Unknown Venipuncture / Unknown 04/28/2024 4:03 PM EST 04/28/2024 4:03 PM EST us Arthur Sampson [facility] LAB BLOOD ORDERABLES Final Res ult [facility] [address] [place] [address], [place] [phone] * HIV 1,2 antibody, p24 antigen with reflex to differentiation (04/28/2024 4:03 PM EST) [facility] HIV Combo AB/AG Negative Negative LAB CHEMISTRY METHOD 04/28/2024 10:12 PM EST [facility] Blood Venous blood specimen / Unknown Venipuncture / Unknown 04/28/2024 4:03 PM EST 04/28/2024 4:03 PM EST Narrative [facility] - 04/28/2024 10:12 PM EST This assay is a 4th generation assay allowing for earlier detection of HIV infection by detecting the presence of the HIV-1 p24 antigen as well as the traditional antibodies to HIV type 1 (including group O) and type 2. Use of a 4th generation assay is the current CDC recommendation for HIV screening. Arthur Sampson CNM LAB BLOOD ORDERABLES Final Res ult [facility] ([facility]) [facility] [address] [place] [address], * Cervical Cancer Screening: HPV (12/02/2021) Pathologist [facility] Cervical Cancer Screening: HPV Abstracted, No Interpretation Historical Provider HEALTH MAINTENANCE Final Result * (ABNORMAL) Lipid panel (04/16/2021) [facility] LDL/HDL Ratio 7(A) 0 - 4 Triglycerides 139 0 - 150 mg/dL Cholesterol 229(A) 0 - 200 mg/dL HDL 35(A) >=40 mg/dL LDL Cholesterol 167(A) 0 - 100 mg/dL Blood Venous blood specimen / Unknown Historical Provider LAB BLOOD ORDERABLES Tiki l Result from Last 3 Months or Most Recently Relevant to Health Maintenance Insurance [facility] [employer] Care Teams Senior Research Scientist Relationship Specialty Start Date End Date Yadi Asencio MD [address] [place] [id number] PCP - General Internal Medicine 03/17/24
[2024-10-27 10:41] LABS: Hematocrit 35.9 % (37.0-47.0); Hemoglobin 12.1 g/dl (12.0-16.0); Imm Gran Abs Auto 0.02 X10*3/uL (0.00-0.03); Imm Gran Pct Auto 0.3 % (0.0-0.4); Lymphocytes Absolute Auto 1.3 X10*3/uL (1.2-4.9); Mean Corpuscular HGB Conc 33.7 g/dl (31.0-35.0); Mean Corpuscular Hemoglobin 27.1 pg (27.0-33.0); Mean Corpuscular Volume 80.5 fL (80.0-98.0); NRBC Abs Auto 0.000 X10*3/uL (0.0-0.012); NRBC Pct Auto 0.0 /100WBC (0.0-0.2); Platelet Count 296 X10*3/uL (160-400); Red Blood Count 4.46 X10*6/uL (4.20-5.50); White Blood Count 6.0 X10*3/uL (4.8-10.8)
[2024-10-27 10:51] LABS: Hemoglobin A1C 108.4429 umol/L; Total Hemoglobin (HGBA1C) 3190.8591 umol/L
[2024-10-27 11:41] LABS: Alanine Aminotransferase 20 U/L (0-31); Albumin Level 4.3 g/dL (3.5-5.0); Alkaline Phosphatase 56 U/L (39-117); Anion Gap 11 (12-20); Aspartate Amino Transferase 15 U/L (5-31); Blood Urea Nitrogen 9 mg/dL (9-16); Calcium 9.2 mg/dL (8.4-10.2); Carbon Dioxide 24 mmol/L (22-29); Chloride 108 mmol/L (96-108); Cholesterol 207 mg/dL (<200); Estimated Glomerular Filt Rate > 60; HDL Cholesterol 57 mg/dL (>40); Iron 123 mcg/dL (30-160); Percent Iron Saturation 33 % (15-50); Potassium 4.1 mmol/L (3.3-5.1); Sodium 139 mmol/L (135-145); Total Iron Binding Capacity 374 mcg/dL (228-428); Total Protein 7.0 g/dL (6.5-8.0); Triglycerides 87 mg/dL (<150); Unsaturated Iron Binding 251 ug/dL
[2024-10-27 11:48] LABS: Ferritin 9 ng/mL (10-122)
[2024-10-27 12:09] LABS: Folate 14.2 ng/mL (> or = 4.0); Vitamin B12 1481 pg/mL (200-900)
== END 2024-10-27 10:03 | disposition home or self-care (01) ==
LOC: HO.LAB 10:02
PROVIDERS: Visit Provider Physician Assistant Surgical
DX: Z98.84 Bariatric surgery status (principal)
CPT/HCPCS: 36415; 80053; 80061; 82306; 82607; 82728; 82746; 83036; 83525; 83540; 84425; 84443; 84590; 84630; 85025; 86140